=== PATIENT | female | born 1970 | race American Indian/Alaskan Native ===

== ENCOUNTER → 2018-11-17 | Outpatient (CLI) | payer OTHER ==
[~2018-11-17] MED LIST: ALBU.083IS IH; ALBU8HFA2 INH; ALBU90OI INH; ALBU90OI6 INH; ASPI325EC; ASPI81EC PO; CETI10 PO; CIPR500 PO; CITIRIZINE; CYAN1000I IM; CYCL10 PO; DICL75ER PO; FLUSAL115; FLUSAL2505 IH; GABA300 PO; HYDACE10B PO; HYDACE5 PO; HYDMOR2 PO; INSLI100I; INSULANI; INSULANI SC; IRON150C PO; KETO30I IM; LISHYD1012 PO; LISHYD2012 PO; MECL25 PO; METF500 PO; METPHE20; METR500 PO; MONT10T PO; NAPR500 PO; OMEP20ER PO; OXCA150 PO; OXYACE5T PO; PIOG45 PO; PREG25 PO; PREG50 PO; QUET200; QUET300 PO; RXCLIN PO; RXOXYACE PO; SERT100 PO; SERT50 PO; SULTRIDS PO; TOPI25 PO; TOPI50 PO; WARF1; WARFARIN
== END | disposition home or self-care (01) ==
LOC: LAB SHORT 15:53 → PLD 15:53
DX: C76.0 Malignant neoplasm of head, face and neck (principal)
CPT/HCPCS: 88173

== ENCOUNTER → 2018-12-08 | Outpatient (CLI) | payer OTHER | END | disposition home or self-care (01) | LOC: PLD 13:36 → LAB SHORT 13:36 | DX: R22.0 Localized swelling, mass and lump, head (principal); Q67.0 Congenital facial asymmetry | CPT/HCPCS: 88305 ==

== ENCOUNTER 2019-01-07 00:57 | Emergency (ER) | payer OTHER ==
[~2019-01-07] VITALS: Ht 167.6 cm; Wt 79.8 kg
== END 2019-01-07 03:54 | disposition home or self-care (01) ==
LOC: ER 00:57
DX: S00.83XA Contusion of other part of head, initial encounter (principal); F17.200 Nicotine dependence, unspecified, uncomplicated; E11.9 Type 2 diabetes mellitus without complications; Z79.899 Other long term (current) drug therapy; Z88.0 Allergy status to penicillin; X58.XXXA Exposure to other specified factors, initial encounter
CPT/HCPCS: 70450; 99283-25; A9270

== ENCOUNTER 2019-02-25 12:23 | Emergency (ER) | payer OTHER ==
[~2019-02-25] VITALS: Ht 167.6 cm; Wt 73.5 kg
[2019-02-25 12:59] LABS: BASOPHILS ABSOLUTE AUTO 0.05 K/mm3 (0.00-0.23); BASOPHILS PERCENT AUTO 1 % (0-2); EOSINOPHILS ABSOLUTE AUTO 0.08 K/mm3 (0.00-0.68); EOSINOPHILS PERCENT AUTO 1 % (0-6); Hematocrit 43.1 % (33.0-51.0); Hemoglobin 14.5 g/dL (11.5-16.0); IMMATURE GRAN ABSOLUTE AUTO 0.04 K/mm3 (0.00-0.10); IMMATURE GRAN PERCENT AUTO 0 % (0-1); LYMPHOCYTES ABSOLUTE AUTO 2.19 K/mm3 (0.84-5.20); LYMPHOCYTES PERCENT AUTO 21 % (21-46); MONOCYTES ABSOLUTE AUTO 0.56 K/mm3 (0.16-1.47); MONOCYTES PERCENT AUTO 6 % (4-13); Mean Corpuscular HGB 29.7 pg (26.0-34.0); Mean Corpuscular HGB Conc 33.6 g/dL (31.5-36.5); Mean Corpuscular Volume 88 fL (80-100); Mean Platelet Volume 9.5 fL (9.1-12.4); NEUTROPHILS ABSOLUTE AUTO 7.33 K/mm3 (1.96-9.15); NEUTROPHILS PERCENT AUTO 71 % (41-73); Platelet Count 326 K/mm3 (150-400); RDW Coefficient Variation 11.9 % (11.7-14.2); RDW Standard Deviation 38.2 fL (35.1-46.3); Red Blood Cell Count 4.88 M/mm3 (3.80-5.20); White Blood Cell Count 10.25 K/mm3 (4.00-11.30)
[2019-02-25 13:10] LABS: Alanine Aminotransfer (ALT/SGP 31 U/L (12-78); Albumin, Blood 3.2 g/dL (3.4-5.0); Albumin/Globulin Ratio 0.7 (0.8-1.8); Alk Phos 121 U/L (50-136); Anion Gap 7 mmol/L (6-16); Aspartate Aminotrans (AST/SGOT 28 U/L (12-37); Bilirubin, Total 0.5 mg/dL (0.1-1.0); Blood Urea Nitrogen 14 mg/dL (8-24); Bun/Creatinine Ratio 13.7 (12.0-20.0); CO2, Blood 21 mmol/L (21-32); Calcium, Blood 8.8 mg/dL (8.5-10.1); Chloride, Blood 108 mmol/L (98-108); Creatinine, Blood 1.02 mg/dL (0.40-1.00); Globulin, Blood 4.4 g/dL (2.2-4.0); Glomerular Filtration Rate >60 (60-); Glucose, Blood 211 mg/dL (70-99); Potassium, Blood 3.6 mmol/L (3.5-5.5); Sodium, Blood 136 mmol/L (136-145); Total Protein, Blood 7.6 g/dL (6.4-8.2); Troponin I <0.015 ng/mL (0.000-0.040)
== END 2019-02-25 16:20 | disposition home or self-care (01) ==
LOC: ER 12:23
PROVIDERS: Emergency Medicine
DX: R55 Syncope and collapse (principal); R42 Dizziness and giddiness; R22.0 Localized swelling, mass and lump, head; Z88.8 Allergy status to other drugs, medicaments and biological substances; Z88.0 Allergy status to penicillin; Z79.899 Other long term (current) drug therapy; Z79.82 Long term (current) use of aspirin; Z79.84 Long term (current) use of oral hypoglycemic drugs; Z79.891 Long term (current) use of opiate analgesic; E11.9 Type 2 diabetes mellitus without complications; J44.9 Chronic obstructive pulmonary disease, unspecified; I10 Essential (primary) hypertension; F17.200 Nicotine dependence, unspecified, uncomplicated
CPT/HCPCS: 70450; 71046; 80053; 84484; 85025; 93005; 93010; 96360; 99285-25; J7030

== ENCOUNTER 2019-10-13 00:20 | Day surgery (SDC) | payer OTHER | END 2019-10-13 22:46 | disposition home or self-care (01) | LOC: WOUND 00:20 | DX: S61.002A Unspecified open wound of left thumb without damage to nail, initial encounter (principal); S61.201A Unspecified open wound of left index finger without damage to nail, initial encounter; E11.22 Type 2 diabetes mellitus with diabetic chronic kidney disease; N18.9 Chronic kidney disease, unspecified; J45.909 Unspecified asthma, uncomplicated; E11.51 Type 2 diabetes mellitus with diabetic peripheral angiopathy without gangrene; Z88.0 Allergy status to penicillin; Z88.8 Allergy status to other drugs, medicaments and biological substances; F17.210 Nicotine dependence, cigarettes, uncomplicated; X58.XXXA Exposure to other specified factors, initial encounter; Z79.82 Long term (current) use of aspirin; Z79.899 Other long term (current) drug therapy; Z79.84 Long term (current) use of oral hypoglycemic drugs | CPT/HCPCS: G0463 ==

== ENCOUNTER 2019-11-05 23:19 | Observation (INO) | payer OTHER ==
[~2019-11-05] VITALS: Ht 167.6 cm; Wt 65.8 kg
[~2019-11-05 23:19] MED LIST changes: -ALBU90OI6 INH; -ASPI81EC PO; -GABA300 PO; -TOPI50 PO
[2019-11-06 02:54] LABS: BASOPHILS ABSOLUTE AUTO 0.07 K/mm3 (0.00-0.23); BASOPHILS PERCENT AUTO 1 % (0-2); EOSINOPHILS ABSOLUTE AUTO 0.26 K/mm3 (0.00-0.68); EOSINOPHILS PERCENT AUTO 2 % (0-6); Hematocrit 44.5 % (33.0-51.0); Hemoglobin 15.3 g/dL (11.5-16.0); IMMATURE GRAN ABSOLUTE AUTO 0.02 K/mm3 (0.00-0.10); IMMATURE GRAN PERCENT AUTO 0 % (0-1); LYMPHOCYTES ABSOLUTE AUTO 4.43 K/mm3 (0.84-5.20); LYMPHOCYTES PERCENT AUTO 40 % (21-46); MONOCYTES ABSOLUTE AUTO 0.68 K/mm3 (0.16-1.47); MONOCYTES PERCENT AUTO 6 % (4-13); Mean Corpuscular HGB 29.8 pg (26.0-34.0); Mean Corpuscular HGB Conc 34.4 g/dL (31.5-36.5); Mean Corpuscular Volume 87 fL (80-100); Mean Platelet Volume 9.5 fL (9.1-12.4); NEUTROPHILS ABSOLUTE AUTO 5.67 K/mm3 (1.96-9.15); NEUTROPHILS PERCENT AUTO 51 % (41-73); Platelet Count 331 K/mm3 (150-400); RDW Coefficient Variation 12.2 % (11.7-14.2); RDW Standard Deviation 38.9 fL (35.1-46.3); Red Blood Cell Count 5.14 M/mm3 (3.80-5.20); White Blood Cell Count 11.13 K/mm3 (4.00-11.30)
[2019-11-06 03:17] LABS: Alanine Aminotransfer (ALT/SGP 30 U/L (12-78); Albumin, Blood 3.2 g/dL (3.4-5.0); Albumin/Globulin Ratio 0.6 (0.8-1.8); Alk Phos 131 U/L (50-136); Anion Gap 7 mmol/L (6-16); Aspartate Aminotrans (AST/SGOT 20 U/L (12-37); Bilirubin, Total 0.4 mg/dL (0.1-1.0); Blood Urea Nitrogen 17 mg/dL (8-24); Bun/Creatinine Ratio 27.6 (12.0-20.0); CO2, Blood 25 mmol/L (21-32); Calcium, Blood 9.2 mg/dL (8.5-10.1); Chloride, Blood 105 mmol/L (98-108); Creatinine, Blood 0.62 mg/dL (0.40-1.00); Glomerular Filtration Rate >60 (60-); Glucose, Blood 270 mg/dL (70-99); Potassium, Blood 3.5 mmol/L (3.5-5.5); Sodium, Blood 137 mmol/L (136-145); Total Protein, Blood 8.2 g/dL (6.4-8.2)
[2019-11-06 04:15] LABS: U Amphetamine Screen DETECTED; U Barbituate Screen Not Detected; U Benzodiazapine Screen Not Detected; U Cannabinoids Screen DETECTED; U Cocaine Screen Not Detected; U Methadone Screen Not Detected; U Methamphetamine Screen Not Detected; U Opiates Screen Not Detected; U Phencyclidine Screen Not Detected
[2019-11-06 04:16] LABS: U Buprenorphine Screen Not Detected; U Oxycodone Screen Not Detected; U Propoxyphene Screen Not Detected
[2019-11-06] MEDS ORDERED: QUET300 PO (13:31)
[2019-11-06] MEDS ORDERED: TOPI50 PO (13:32)
[2019-11-06] MEDS ORDERED: SERT100 PO (13:33)
[2019-11-06] MEDS ORDERED: ALBU90OI6 INH (13:36)
[2019-11-06] MEDS ORDERED: GABA300 PO (13:36)
[2019-11-06] MEDS ORDERED: Lovastatin10 MG PO (13:37)
[2019-11-06] MEDS ORDERED: GLUCOPHAGE1000 MG PO (13:38)
[2019-11-06] MEDS ORDERED: MONT10T PO (13:39)
[2019-11-06] MEDS ORDERED: WIXELA 250-501 EAC1 INH (13:40)
[2019-11-06] MEDS ORDERED: Aspir 8181 MG PO (13:41)
== END 2019-11-07 14:27 | disposition home or self-care (01) ==
LOC: ER 23:19 → EOR 23:20
PROVIDERS: Physician Assistant; ADMIT Emergency Medicine
DX: F15.150 Other stimulant abuse with stimulant-induced psychotic disorder with delusions (principal); R06.02 Shortness of breath; R07.9 Chest pain, unspecified; E11.9 Type 2 diabetes mellitus without complications; Z88.0 Allergy status to penicillin; Z88.8 Allergy status to other drugs, medicaments and biological substances; Z87.891 Personal history of nicotine dependence; Z79.84 Long term (current) use of oral hypoglycemic drugs
CPT/HCPCS: 36415; 70450; 70487; 71045; 80053; 82375; 84484; 85025; 93005; 93010; 99285-25; A9270-GY; G0378; Q3014; Q9967

== ENCOUNTER 2019-11-19 01:37 | Day surgery (SDC) | payer OTHER ==
[~2019-11-19 01:37] MED LIST changes: +ALBU90OI6 INH; +Aspir 8181 MG PO; +GABA300 PO; +GLUCOPHAGE1000 MG PO; +Lovastatin10 MG PO; +TOPI50 PO; +WIXELA 250-501 EAC1 INH
== END 2019-11-19 22:44 | disposition home or self-care (01) ==
LOC: WOUND 01:37
DX: E11.622 Type 2 diabetes mellitus with other skin ulcer (principal); L98.492 Non-pressure chronic ulcer of skin of other sites with fat layer exposed; E11.51 Type 2 diabetes mellitus with diabetic peripheral angiopathy without gangrene; E11.22 Type 2 diabetes mellitus with diabetic chronic kidney disease; N18.9 Chronic kidney disease, unspecified; J45.909 Unspecified asthma, uncomplicated; Z88.8 Allergy status to other drugs, medicaments and biological substances; F17.210 Nicotine dependence, cigarettes, uncomplicated; Z79.82 Long term (current) use of aspirin; Z79.84 Long term (current) use of oral hypoglycemic drugs; Z79.899 Other long term (current) drug therapy
CPT/HCPCS: G0463

== ENCOUNTER 2020-03-04 05:07 | Emergency (ER) | payer OTHER ==
[~2020-03-04] VITALS: Ht 167.6 cm; Wt 63.0 kg
[2020-03-04 05:45] LABS: BASOPHILS ABSOLUTE AUTO 0.04 K/mm3 (0.00-0.23); BASOPHILS PERCENT AUTO 1 % (0-2); EOSINOPHILS ABSOLUTE AUTO 0.15 K/mm3 (0.00-0.68); EOSINOPHILS PERCENT AUTO 2 % (0-6); Hematocrit 43.1 % (33.0-51.0); Hemoglobin 14.6 g/dL (11.5-16.0); IMMATURE GRAN ABSOLUTE AUTO 0.02 K/mm3 (0.00-0.10); IMMATURE GRAN PERCENT AUTO 0 % (0-1); LYMPHOCYTES ABSOLUTE AUTO 3.25 K/mm3 (0.84-5.20); LYMPHOCYTES PERCENT AUTO 44 % (21-46); MONOCYTES ABSOLUTE AUTO 0.53 K/mm3 (0.16-1.47); MONOCYTES PERCENT AUTO 7 % (4-13); Mean Corpuscular HGB Conc 33.9 g/dL (31.5-36.5); Mean Corpuscular Volume 89 fL (80-100); NEUTROPHILS ABSOLUTE AUTO 3.41 K/mm3 (1.96-9.15); NEUTROPHILS PERCENT AUTO 46 % (41-73); Platelet Count 273 K/mm3 (150-400); RDW Coefficient Variation 11.9 % (11.7-14.2); RDW Standard Deviation 38.5 fL (35.1-46.3); Red Blood Cell Count 4.87 M/mm3 (3.80-5.20)
[2020-03-04 06:05] LABS: Alanine Aminotransfer (ALT/SGP 46 U/L (12-78); Albumin, Blood 3.4 g/dL (3.4-5.0); Albumin/Globulin Ratio 0.7 (0.8-1.8); Alk Phos 106 U/L (50-136); Anion Gap 6 mmol/L (6-16); Aspartate Aminotrans (AST/SGOT 31 U/L (12-37); Bilirubin, Total 0.4 mg/dL (0.1-1.0); Blood Urea Nitrogen 29 mg/dL (8-24); Bun/Creatinine Ratio 31.1 (12.0-20.0); CO2, Blood 24 mmol/L (21-32); Chloride, Blood 107 mmol/L (98-108); Creatinine, Blood 0.93 mg/dL (0.40-1.00); Globulin, Blood 4.6 g/dL (2.2-4.0); Glomerular Filtration Rate >60 (60-); Glucose, Blood 183 mg/dL (70-99); Potassium, Blood 3.6 mmol/L (3.5-5.5); Sodium, Blood 137 mmol/L (136-145); Troponin I <0.015 ng/mL (0.000-0.040)
[2020-03-04 08:14] LABS: U Amphetamine Screen Not Detected; U Barbituate Screen Not Detected; U Benzodiazapine Screen Not Detected; U Buprenorphine Screen Not Detected; U Cannabinoids Screen DETECTED; U Cocaine Screen Not Detected; U Methadone Screen Not Detected; U Methamphetamine Screen Not Detected; U Opiates Screen Not Detected; U Oxycodone Screen Not Detected; U Phencyclidine Screen Not Detected; U Propoxyphene Screen Not Detected
== END 2020-03-04 09:11 | disposition home or self-care (01) ==
LOC: ER 05:07
PROVIDERS: Emergency Medicine
DX: R07.89 Other chest pain (principal); R10.9 Unspecified abdominal pain; R42 Dizziness and giddiness; R25.2 Cramp and spasm; Z79.899 Other long term (current) drug therapy; Z79.82 Long term (current) use of aspirin; Z79.84 Long term (current) use of oral hypoglycemic drugs; Z88.8 Allergy status to other drugs, medicaments and biological substances; Z88.1 Allergy status to other antibiotic agents; Z88.0 Allergy status to penicillin
CPT/HCPCS: 36415; 71045; 80053; 83690; 83880; 84484; 85025; 93005; 93010; 99285-25

== ENCOUNTER 2020-03-12 08:41 | Emergency (ER) | payer OTHER ==
[~2020-03-12] VITALS: Ht 167.6 cm; Wt 62.6 kg
[2020-03-12 11:12] LABS: BASOPHILS ABSOLUTE AUTO 0.03 K/mm3 (0.00-0.23); BASOPHILS PERCENT AUTO 0 % (0-2); EOSINOPHILS PERCENT AUTO 0 % (0-6); Hematocrit 38.3 % (33.0-51.0); Hemoglobin 13.3 g/dL (11.5-16.0); IMMATURE GRAN ABSOLUTE AUTO 0.05 K/mm3 (0.00-0.10); IMMATURE GRAN PERCENT AUTO 0 % (0-1); LYMPHOCYTES ABSOLUTE AUTO 1.57 K/mm3 (0.84-5.20); LYMPHOCYTES PERCENT AUTO 14 % (21-46); MONOCYTES ABSOLUTE AUTO 0.67 K/mm3 (0.16-1.47); MONOCYTES PERCENT AUTO 6 % (4-13); Mean Corpuscular HGB 29.7 pg (26.0-34.0); Mean Corpuscular HGB Conc 34.7 g/dL (31.5-36.5); Mean Corpuscular Volume 86 fL (80-100); Mean Platelet Volume 9.5 fL (9.1-12.4); NEUTROPHILS ABSOLUTE AUTO 8.82 K/mm3 (1.96-9.15); NEUTROPHILS PERCENT AUTO 79 % (41-73); Platelet Count 322 K/mm3 (150-400); RDW Coefficient Variation 11.6 % (11.7-14.2); RDW Standard Deviation 36.2 fL (35.1-46.3); Red Blood Cell Count 4.48 M/mm3 (3.80-5.20); White Blood Cell Count 11.14 K/mm3 (4.00-11.30)
[2020-03-12 11:30] LABS: Alanine Aminotransfer (ALT/SGP 25 U/L (12-78); Albumin, Blood 3.1 g/dL (3.4-5.0); Albumin/Globulin Ratio 0.6 (0.8-1.8); Alk Phos 108 U/L (50-136); Anion Gap 9 mmol/L (6-16); Aspartate Aminotrans (AST/SGOT 15 U/L (12-37); Bilirubin, Total 0.4 mg/dL (0.1-1.0); Blood Urea Nitrogen 18 mg/dL (8-24); Bun/Creatinine Ratio 26.5 (12.0-20.0); CO2, Blood 22 mmol/L (21-32); Calcium, Blood 9.1 mg/dL (8.5-10.1); Chloride, Blood 109 mmol/L (98-108); Creatinine, Blood 0.68 mg/dL (0.40-1.00); Glomerular Filtration Rate >60 (60-); Glucose, Blood 278 mg/dL (70-99); Potassium, Blood 3.6 mmol/L (3.5-5.5); Sodium, Blood 140 mmol/L (136-145); Total Protein, Blood 8.1 g/dL (6.4-8.2)
[2020-03-12] MEDS ORDERED: BACTRIM DS TAB1 EAC3 PO (12:53)
== END 2020-03-12 14:00 | disposition home or self-care (01) ==
LOC: ER 08:41
PROVIDERS: Emergency Medicine
DX: S61.255A Open bite of left ring finger without damage to nail, initial encounter (principal); L08.9 Local infection of the skin and subcutaneous tissue, unspecified; E11.9 Type 2 diabetes mellitus without complications; I10 Essential (primary) hypertension; F17.210 Nicotine dependence, cigarettes, uncomplicated; Z88.0 Allergy status to penicillin; Z88.1 Allergy status to other antibiotic agents; Z79.899 Other long term (current) drug therapy; Z79.84 Long term (current) use of oral hypoglycemic drugs; Z79.82 Long term (current) use of aspirin; W54.0XXA Bitten by dog, initial encounter
CPT/HCPCS: 36415; 73130; 76882; 80053; 85025; 99284-25

== ENCOUNTER 2020-03-16 14:02 | Inpatient (IN) | payer OTHER ==
[~2020-03-16] VITALS: Ht 167.6 cm; Wt 62.2 kg
[~2020-03-16 14:02] MED LIST changes: +BACTRIM DS TAB1 EAC3 PO
[2020-03-16 14:43] LABS: BASOPHILS ABSOLUTE AUTO 0.04 K/mm3 (0.00-0.23); BASOPHILS PERCENT AUTO 0 % (0-2); EOSINOPHILS ABSOLUTE AUTO 0.12 K/mm3 (0.00-0.68); EOSINOPHILS PERCENT AUTO 1 % (0-6); Hematocrit 41.2 % (33.0-51.0); Hemoglobin 13.8 g/dL (11.5-16.0); IMMATURE GRAN ABSOLUTE AUTO 0.03 K/mm3 (0.00-0.10); IMMATURE GRAN PERCENT AUTO 0 % (0-1); LYMPHOCYTES ABSOLUTE AUTO 2.43 K/mm3 (0.84-5.20); LYMPHOCYTES PERCENT AUTO 24 % (21-46); MONOCYTES ABSOLUTE AUTO 0.65 K/mm3 (0.16-1.47); MONOCYTES PERCENT AUTO 6 % (4-13); Mean Corpuscular HGB Conc 33.5 g/dL (31.5-36.5); Mean Corpuscular Volume 87 fL (80-100); Mean Platelet Volume 9.2 fL (9.1-12.4); NEUTROPHILS ABSOLUTE AUTO 6.84 K/mm3 (1.96-9.15); NEUTROPHILS PERCENT AUTO 68 % (41-73); Platelet Count 397 K/mm3 (150-400); RDW Coefficient Variation 11.7 % (11.7-14.2); RDW Standard Deviation 37.4 fL (35.1-46.3); Red Blood Cell Count 4.76 M/mm3 (3.80-5.20); White Blood Cell Count 10.11 K/mm3 (4.00-11.30)
[2020-03-16 15:04] LABS: Alanine Aminotransfer (ALT/SGP 22 U/L (12-78); Albumin, Blood 2.8 g/dL (3.4-5.0); Albumin/Globulin Ratio 0.6 (0.8-1.8); Alk Phos 112 U/L (50-136); Anion Gap 7 mmol/L (6-16); Aspartate Aminotrans (AST/SGOT 14 U/L (12-37); Bilirubin, Total 0.3 mg/dL (0.1-1.0); Blood Urea Nitrogen 14 mg/dL (8-24); Bun/Creatinine Ratio 20.2 (12.0-20.0); CO2, Blood 24 mmol/L (21-32); Calcium, Blood 8.8 mg/dL (8.5-10.1); Chloride, Blood 103 mmol/L (98-108); Creatinine, Blood 0.69 mg/dL (0.40-1.00); Glomerular Filtration Rate >60 (60-); Glucose, Blood 349 mg/dL (70-99); Sodium, Blood 134 mmol/L (136-145); Total Protein, Blood 7.8 g/dL (6.4-8.2)
[2020-03-16] MEDS ORDERED: ZYRTEC10 M2 PO (17:27)
[2020-03-17 04:51] LABS: Hematocrit 39.6 % (33.0-51.0); Hemoglobin 13.1 g/dL (11.5-16.0); Mean Corpuscular HGB 28.9 pg (26.0-34.0); Mean Corpuscular HGB Conc 33.1 g/dL (31.5-36.5); Mean Corpuscular Volume 87 fL (80-100); Platelet Count 314 K/mm3 (150-400); RDW Coefficient Variation 11.7 % (11.7-14.2); RDW Standard Deviation 37.5 fL (35.1-46.3); Red Blood Cell Count 4.54 M/mm3 (3.80-5.20); White Blood Cell Count 8.14 K/mm3 (4.00-11.30)
[2020-03-17 05:16] LABS: Anion Gap 5 mmol/L (6-16); Blood Urea Nitrogen 20 mg/dL (8-24); Bun/Creatinine Ratio 24.1 (12.0-20.0); CO2, Blood 27 mmol/L (21-32); Chloride, Blood 101 mmol/L (98-108); Creatinine, Blood 0.83 mg/dL (0.40-1.00); Glomerular Filtration Rate >60 (60-); Glucose, Blood 182 mg/dL (70-99); Potassium, Blood 4.3 mmol/L (3.5-5.5); Sodium, Blood 133 mmol/L (136-145)
--- NOTE | 2020-03-17 05:40 | NUR ---
SHIFT SUMMARY PT ARRIVIED TO UNIT FROM ED VIA WHEELCHAIR. TRANSFERRED FROM WC TO BED IND. A&O X4. ATE DINNER ONCE SETTLED. PT BECAME NPO @ 0000. NO ACUTE CHANGES THIS SHIFT. SLEPT T/O NIGHT WITH NO COMPLAINTS OF ANY KIND. PT IS LAYING IN BED WITH EYES CLOSED, EVEN AND UNLABORED RESPIRATIONS. BED IN LOWERED POSITION WITH CALL LIGHT AND PERSONAL ITEMS WITHIN REACH. NO APPARENT NEEDS OR DISTRESS AT THIS TIME. WILL CONTINUE TO MONITOR UNTIL REPORT GIVEN TO DAY RN.
--- NOTE | 2020-03-17 18:02 | NUR ---
PATIENT IS ALERT AND ORIENTED AND COOPERATIVE WITH CARE. DR. CHESTER PERFORMED SURGERY ON THE PATIENT TODAY, AMPUTATING HER RIGHT RING FINGER. THE PATIENTS HAND IS WRAPPED IN GAUZE AND KUN WRAP. DURING THE PROCEDURE, THE PATIENT'S IV INFILTRATED CAUSING HER ARM TO SWELL, THERE ARE ORDERS FOR THE PATIENT TO ELEVATE HER RIGHT ARM ABOVE THE LEVEL OF HER HEART, HER UPPER ARM IS WRAPPED IN AN KUN WRAP FOR COMPRESSION. THE PATIENT'S POST-OP VITALS HAVE BEEN WNL. THE PATIENT IS ALERT AND ORIENTED X4. SHE JUST FINISHED DINNER. WILL CONTINUE TO MONITOR.
[2020-03-18 04:16] LABS: BASOPHILS ABSOLUTE AUTO 0.04 K/mm3 (0.00-0.23); BASOPHILS PERCENT AUTO 1 % (0-2); EOSINOPHILS ABSOLUTE AUTO 0.15 K/mm3 (0.00-0.68); EOSINOPHILS PERCENT AUTO 2 % (0-6); Hematocrit 35.7 % (33.0-51.0); IMMATURE GRAN ABSOLUTE AUTO 0.05 K/mm3 (0.00-0.10); IMMATURE GRAN PERCENT AUTO 1 % (0-1); LYMPHOCYTES ABSOLUTE AUTO 1.81 K/mm3 (0.84-5.20); LYMPHOCYTES PERCENT AUTO 22 % (21-46); MONOCYTES ABSOLUTE AUTO 0.78 K/mm3 (0.16-1.47); MONOCYTES PERCENT AUTO 9 % (4-13); Mean Corpuscular HGB 29.6 pg (26.0-34.0); Mean Corpuscular HGB Conc 33.6 g/dL (31.5-36.5); Mean Corpuscular Volume 88 fL (80-100); NEUTROPHILS ABSOLUTE AUTO 5.47 K/mm3 (1.96-9.15); NEUTROPHILS PERCENT AUTO 66 % (41-73); Platelet Count 296 K/mm3 (150-400); RDW Coefficient Variation 11.7 % (11.7-14.2); RDW Standard Deviation 37.9 fL (35.1-46.3); Red Blood Cell Count 4.05 M/mm3 (3.80-5.20)
[2020-03-18 04:30] LABS: Anion Gap 6 mmol/L (6-16); Blood Urea Nitrogen 32 mg/dL (8-24); Bun/Creatinine Ratio 32.5 (12.0-20.0); CO2, Blood 27 mmol/L (21-32); Calcium, Blood 8.4 mg/dL (8.5-10.1); Chloride, Blood 96 mmol/L (98-108); Creatinine, Blood 0.98 mg/dL (0.40-1.00); Glomerular Filtration Rate >60 (60-); Glucose, Blood 199 mg/dL (70-99); Potassium, Blood 4.9 mmol/L (3.5-5.5); Sodium, Blood 129 mmol/L (136-145)
--- NOTE | 2020-03-18 04:32 | NUR ---
MARKETING SENIOR RECRUITER SUMMARY ALERT AND ORIENTED. APPEARED TO SLEEP MOST OF THE SHIFT. S/P R. RING FINGER AMPUTATION, DRESSING IS C/D/I. VSS. NO ACUTE CHANGES NOTED AT THIS TIME. BED IN LOWEST POSITION WITH CALL LIGHT IN REACH. WILL CONTINUE TO MONITOR AND REPORT TO ONCOMING RN.
--- NOTE | 2020-03-18 08:00 | NUR ---
ADVISED OF SODIUM 129 AND PATIENT REQUEST MORE PAIN MEDS. GIVEN TYLENOL. TO CHECK.
--- NOTE | 2020-03-18 18:11 | NUR ---
ALERT. ORIENTED. MEDICATED FOR PAIN X 3 WITH MODERATE RELIEF. DRESSING DRY AND INTACT. UNLABORED RESPIRATIONS. INDEPENDENT IN ROOM, STEADY GAIT. IV PATENT. TM
--- NOTE | 2020-03-19 04:15 | NUR ---
PATCH MACHINE OPERATOR SUMMARY ALERT AND ORIENTED. IND TO BATHROOM. APPEARED TO SLEEP T/O SHIFT. S/P R. RING FINGER AMPUTATION. DRESSING C/D/I. BREATHING IS UNLABORED. NO ACUTE CHANGES AT THIS TIME. BED IN LOWEST POSITON WITH CALL LIGHT IN REACH. WILL CONTINUE TO MONITOR AND REPORT TO ONCOMING RN.
[2020-03-19 10:36] LABS: Anion Gap 7 mmol/L (6-16); Blood Urea Nitrogen 20 mg/dL (8-24); Bun/Creatinine Ratio 27.9 (12.0-20.0); CO2, Blood 27 mmol/L (21-32); Calcium, Blood 8.9 mg/dL (8.5-10.1); Chloride, Blood 97 mmol/L (98-108); Creatinine, Blood 0.72 mg/dL (0.40-1.00); Glomerular Filtration Rate >60 (60-); Glucose, Blood 319 mg/dL (70-99); Potassium, Blood 4.6 mmol/L (3.5-5.5); Sodium, Blood 131 mmol/L (136-145)
--- NOTE | 2020-03-19 18:23 | NUR ---
report recived from noc nurse, pt doing well with pain controlled with medication, independant in rm, a+o, no IV access in L arm r/blood clots, able to use call light, awaiting lab results of culture, pt was coopreative, much improved finger and pain control over previous days, great attitude, will continue to monitor and treat until share sbar report with staff and pt at end of shift
--- NOTE | 2020-03-20 04:40 | NUR ---
PRODUCT MANAGER FINANCIAL SERVICES SUMMARY NO ACUTE CHANGES NOTED TO PATIENT THIS SHIFT. A&OX4, ABLE TO MAKE NEEDS KNOWN. LSCTA, NO C/O SOB, N&V, NO C/O PAIN OR ANY OTHER DISCOMFORT. PATIENT PLEASANT AND COOPERATIVE TO CARE. WOUND DRESSING TO AMPUTATED AREA R RING FINGER CDI. AWAITING LAB RESULTS OF CULTURE. PT INDEPENDENT IN ROOM, CALL LIGHT WITHIN REACH. WILL CONTINUE TO MONITOR PATIENT. WILL REPORT TO ONCOMING RN AT END OF SHIFT.
[2020-03-20] MEDS ORDERED: SACC250C PO (11:15)
[2020-03-20] MEDS ORDERED: Norco 5-325 Ta1 EACH PO (11:15)
[2020-03-20] MEDS ORDERED: CLIN300 PO (11:16)
--- NOTE | 2020-03-20 13:38 | NUR ---
Discharge Summary A/Ox4, pleasant and cooperative with care. Patient had wound care completed per Dr. Westbrook's verbal order and a shower prior to discharge. Medicated x 1 for pain with good relief. Up in room independently. Reviewed discharge paperwork with patient, no questions at this time. Meds faxed to preferred pharmacy - [facility] - and hard script provided to patient. Escorted by Discharge Volunteer via w/c. Personal belongings sent home. IV removed, personal transportation by family. Wound care appointment and follow up appts with PCP and Ortho set up, patient aware.
== END 2020-03-20 13:04 | disposition home or self-care (01) | DRG 256 ==
LOC: ER 14:02 → MEDS 14:03 → ENPENDDIS 03-20 10:22 → MEDS 03-20 13:04
PROVIDERS: Hospitalist; Orthopaedic Surgery; Physician Assistant; ADMIT Internal Medicine
PROC: 3E02340 Introduction of Influenza Vaccine into Muscle, Percutaneous Approach (ICD-10-PCS; 2020-03-16)
PROC: 0X6S0Z0 Detachment at Right Ring Finger, Complete, Open Approach (ICD-10-PCS; principal; 2020-03-17 13:00)
DX: E11.52 Type 2 diabetes mellitus with diabetic peripheral angiopathy with gangrene (principal); I96 Gangrene, not elsewhere classified; I73.01 Raynaud's syndrome with gangrene; E87.1 Hypo-osmolality and hyponatremia; Z20.828 Contact with and (suspected) exposure to other viral communicable diseases; E11.65 Type 2 diabetes mellitus with hyperglycemia; I10 Essential (primary) hypertension; I25.10 Atherosclerotic heart disease of native coronary artery without angina pectoris; F15.10 Other stimulant abuse, uncomplicated; F17.210 Nicotine dependence, cigarettes, uncomplicated; F12.10 Cannabis abuse, uncomplicated; Z86.718 Personal history of other venous thrombosis and embolism; Z86.711 Personal history of pulmonary embolism; Z79.899 Other long term (current) drug therapy; Z79.84 Long term (current) use of oral hypoglycemic drugs; Z79.82 Long term (current) use of aspirin; Z23 Encounter for immunization; Z88.0 Allergy status to penicillin; Z88.1 Allergy status to other antibiotic agents; Z88.8 Allergy status to other drugs, medicaments and biological substances; W54.0XXS Bitten by dog, sequela
CPT/HCPCS: 36415; 73140; 80048; 80053; 82947; 83605; 85025; 85027; 85651; 86140; 87040; 87070; 87075; 87205; 88305; 88311; 94640; 94760; 96365-59; 96366-59; 99284-25; A9270; A9270-GY; G0008; J1650; J1885; J1956; J2250; J2370; J2405; J2704; J2795; J3010; J7050; Q2038; U0003

== ENCOUNTER 2020-03-27 13:29 | Day surgery (SDC) | payer OTHER ==
[~2020-03-27 13:29] MED LIST changes: +CLIN300 PO; +Norco 5-325 Ta1 EACH PO; +SACC250C PO; +ZYRTEC10 M2 PO
== END 2020-03-27 15:00 | disposition home or self-care (01) ==
LOC: WOUND 13:29
DX: T87.89 Other complications of amputation stump (principal); E11.622 Type 2 diabetes mellitus with other skin ulcer; L98.491 Non-pressure chronic ulcer of skin of other sites limited to breakdown of skin; I12.9 Hypertensive chronic kidney disease with stage 1 through stage 4 chronic kidney disease, or unspecified chronic kidney disease; E11.22 Type 2 diabetes mellitus with diabetic chronic kidney disease; N18.9 Chronic kidney disease, unspecified; F31.9 Bipolar disorder, unspecified; F17.210 Nicotine dependence, cigarettes, uncomplicated; J32.9 Chronic sinusitis, unspecified; H74.90 Unspecified disorder of middle ear and mastoid, unspecified ear; D64.9 Anemia, unspecified; G47.30 Sleep apnea, unspecified; J44.9 Chronic obstructive pulmonary disease, unspecified; E11.40 Type 2 diabetes mellitus with diabetic neuropathy, unspecified; E11.36 Type 2 diabetes mellitus with diabetic cataract; E11.51 Type 2 diabetes mellitus with diabetic peripheral angiopathy without gangrene; H26.9 Unspecified cataract; Z88.0 Allergy status to penicillin; Z88.1 Allergy status to other antibiotic agents; Z88.8 Allergy status to other drugs, medicaments and biological substances; Z91.048 Other nonmedicinal substance allergy status; Z79.82 Long term (current) use of aspirin; Z79.84 Long term (current) use of oral hypoglycemic drugs; Z79.51 Long term (current) use of inhaled steroids; Z79.2 Long term (current) use of antibiotics; Z79.899 Other long term (current) drug therapy; I73.00 Raynaud's syndrome without gangrene; Y83.5 Amputation of limb(s) as the cause of abnormal reaction of the patient, or of later complication, without mention of misadventure at the time of the procedure
CPT/HCPCS: G0463

== ENCOUNTER 2020-09-18 22:01 | Emergency (ER) | payer OTHER ==
[~2020-09-18] VITALS: Ht 167.6 cm; Wt 65.3 kg
[2020-09-18 22:34] LABS: BASOPHILS ABSOLUTE AUTO 0.04 K/mm3 (0.00-0.23); BASOPHILS PERCENT AUTO 0 % (0-2); EOSINOPHILS ABSOLUTE AUTO 0.08 K/mm3 (0.00-0.68); EOSINOPHILS PERCENT AUTO 1 % (0-6); Hematocrit 37.4 % (33.0-51.0); Hemoglobin 12.9 g/dL (11.5-16.0); IMMATURE GRAN ABSOLUTE AUTO 0.05 K/mm3 (0.00-0.10); IMMATURE GRAN PERCENT AUTO 0 % (0-1); LYMPHOCYTES ABSOLUTE AUTO 2.17 K/mm3 (0.84-5.20); LYMPHOCYTES PERCENT AUTO 17 % (21-46); MONOCYTES ABSOLUTE AUTO 1.09 K/mm3 (0.16-1.47); MONOCYTES PERCENT AUTO 9 % (4-13); Mean Corpuscular HGB 30.1 pg (26.0-34.0); Mean Corpuscular HGB Conc 34.5 g/dL (31.5-36.5); Mean Corpuscular Volume 87 fL (80-100); Mean Platelet Volume 9.8 fL (9.1-12.4); NEUTROPHILS ABSOLUTE AUTO 9.05 K/mm3 (1.96-9.15); NEUTROPHILS PERCENT AUTO 73 % (41-73); Platelet Count 260 K/mm3 (150-400); RDW Coefficient Variation 12.4 % (11.7-14.2); RDW Standard Deviation 39.5 fL (35.1-46.3); Red Blood Cell Count 4.29 M/mm3 (3.80-5.20); White Blood Cell Count 12.48 K/mm3 (4.00-11.30)
[2020-09-18 22:54] LABS: Alanine Aminotransfer (ALT/SGP 30 U/L (12-78); Albumin, Blood 2.7 g/dL (3.4-5.0); Albumin/Globulin Ratio 0.6 (0.8-1.8); Alk Phos 95 U/L (50-136); Anion Gap 6 mmol/L (6-16); Aspartate Aminotrans (AST/SGOT 29 U/L (12-37); Bilirubin, Total 0.5 mg/dL (0.1-1.0); Blood Urea Nitrogen 21 mg/dL (8-24); Bun/Creatinine Ratio 36.8 (12.0-20.0); CO2, Blood 25 mmol/L (21-32); Chloride, Blood 107 mmol/L (98-108); Creatinine, Blood 0.57 mg/dL (0.40-1.00); Globulin, Blood 4.5 g/dL (2.2-4.0); Glomerular Filtration Rate >60 (60-); Glucose, Blood 202 mg/dL (70-99); Potassium, Blood 3.4 mmol/L (3.5-5.5); Sodium, Blood 138 mmol/L (136-145); Total Protein, Blood 7.2 g/dL (6.4-8.2)
[2020-09-19 00:53] LABS: Prothrombin Time Results 10.8 Sec (9.7-11.5)
[2020-09-19 01:41] LABS: Influenza A, PCR NEGATIVE (NEGATIVE); Influenza B, PCR NEGATIVE (NEGATIVE); Resp Syncytial Virus, PCR NEGATIVE (NEGATIVE); SARS-Cov-2 (COVID-19) PCR, MMC NEGATIVE (NEGATIVE)
== END 2020-09-19 03:27 | disposition short-term general hospital (02) ==
LOC: ER 22:01
PROVIDERS: Emergency Medicine
DX: I70.0 Atherosclerosis of aorta (principal); E11.9 Type 2 diabetes mellitus without complications; I10 Essential (primary) hypertension; F17.210 Nicotine dependence, cigarettes, uncomplicated
CPT/HCPCS: 0241U; 71275; 73620; 74175; 75635; 80053; 85025; 85610; 85730; 93005; 93010; 96361; 96365; 96375; 96376; 99285-25; J0744; J1170; J1644; J7030; Q9967

== ENCOUNTER 2021-08-27 09:59 | Day surgery (SDC) | payer OTHER ==
[~2021-08-27] VITALS: Ht 167.6 cm; Wt 30.5 kg
[2021-08-27] MEDS ORDERED: GABA100 PO (10:42)
[2021-08-27] MEDS ORDERED: HALO2 PO (10:43)
[2021-08-27] MEDS ORDERED: HALO5 PO (10:43)
[2021-08-27] MEDS ORDERED: MONT10T (10:45)
[2021-08-27] MEDS ORDERED: CLOP75 PO (10:46)
[2021-08-27] MEDS ORDERED: CYCLOBENZAPRINE5 MG PO (10:47)
[2021-08-27] MEDS ORDERED: ATOR80 (10:48)
[2021-08-27] MEDS ORDERED: SERT50 (10:49)
--- NOTE | 2021-08-27 12:42 | NUR ---
08/27/21 1242 Rony Nunn PT REPORTS NO NAUSEA AND PAIN LEVEL IN HER RIGHT FOOT IS A 1/10 WHICH IS "TOLERABLE" FOR HER. PT REPORTS HAVING PAIN IN HER LOWER BACK. BUS AND RAIL OPERATOR REPORTED THAT PT HAS A BED SORE ON HER LOWER BACK THAT IS CURENTLY COVERED.
== END 2021-08-27 13:03 | disposition home or self-care (01) ==
LOC: ORSCSDS 09:59
PROVIDERS: Podiatrist Foot & Ankle Surgery
PROC: 0Y6V0Z1 Detachment at Right 4th Toe, High, Open Approach (ICD-10-PCS; principal; 2021-08-27 11:30)
DX: I96 Gangrene, not elsewhere classified (principal); M86.9 Osteomyelitis, unspecified; L03.031 Cellulitis of right toe; E08.42 Diabetes mellitus due to underlying condition with diabetic polyneuropathy; I10 Essential (primary) hypertension; J44.9 Chronic obstructive pulmonary disease, unspecified; F17.210 Nicotine dependence, cigarettes, uncomplicated; Z79.84 Long term (current) use of oral hypoglycemic drugs; F31.9 Bipolar disorder, unspecified; I25.10 Atherosclerotic heart disease of native coronary artery without angina pectoris; Z79.4 Long term (current) use of insulin; Z79.899 Other long term (current) drug therapy; Z79.82 Long term (current) use of aspirin
CPT/HCPCS: 82947; 88305; 88311; J0171; J1100; J2250; J2405; J2704; J3010

== ENCOUNTER 2021-09-14 03:00 | Day surgery (SDC) | payer OTHER ==
[~2021-09-14 03:00] MED LIST changes: +ATOR80; +CLOP75 PO; +CYCLOBENZAPRINE5 MG PO; +GABA100 PO; +HALO2 PO; +HALO5 PO; +MONT10T; +SERT50
== END 2021-09-14 23:23 | disposition home or self-care (01) ==
LOC: WOUND 03:00
DX: L89.153 Pressure ulcer of sacral region, stage 3 (principal); E11.59 Type 2 diabetes mellitus with other circulatory complications; E11.51 Type 2 diabetes mellitus with diabetic peripheral angiopathy without gangrene; E11.22 Type 2 diabetes mellitus with diabetic chronic kidney disease; I12.0 Hypertensive chronic kidney disease with stage 5 chronic kidney disease or end stage renal disease; N18.6 End stage renal disease; J44.9 Chronic obstructive pulmonary disease, unspecified; F17.200 Nicotine dependence, unspecified, uncomplicated; Z88.1 Allergy status to other antibiotic agents; Z88.0 Allergy status to penicillin; Z88.8 Allergy status to other drugs, medicaments and biological substances; Z91.048 Other nonmedicinal substance allergy status
CPT/HCPCS: A9270; G0463

== ENCOUNTER 2021-09-28 01:14 | Day surgery (SDC) | payer OTHER | END 2021-09-28 22:51 | disposition home or self-care (01) | LOC: WOUND 01:14 | DX: L89.153 Pressure ulcer of sacral region, stage 3 (principal); E11.59 Type 2 diabetes mellitus with other circulatory complications; E11.51 Type 2 diabetes mellitus with diabetic peripheral angiopathy without gangrene | CPT/HCPCS: A9270; G0463 ==

== ENCOUNTER 2021-10-12 01:59 | Day surgery (SDC) | payer OTHER | END 2021-10-12 23:14 | disposition home or self-care (01) | LOC: WOUND 01:59 | DX: L89.153 Pressure ulcer of sacral region, stage 3 (principal); E11.59 Type 2 diabetes mellitus with other circulatory complications; N18.9 Chronic kidney disease, unspecified; E11.22 Type 2 diabetes mellitus with diabetic chronic kidney disease; F17.200 Nicotine dependence, unspecified, uncomplicated | CPT/HCPCS: G0463 ==

== ENCOUNTER 2021-10-26 05:26 | Day surgery (SDC) | payer OTHER | END 2021-10-26 23:07 | disposition home or self-care (01) | LOC: WOUND 05:26 | DX: L89.153 Pressure ulcer of sacral region, stage 3 (principal); E11.59 Type 2 diabetes mellitus with other circulatory complications | CPT/HCPCS: 99406; A9270; G0463 ==

== ENCOUNTER 2021-11-16 01:35 | Day surgery (SDC) | payer OTHER | END 2021-11-16 23:39 | disposition home or self-care (01) | LOC: WOUND 01:35 | DX: L89.153 Pressure ulcer of sacral region, stage 3 (principal); N18.9 Chronic kidney disease, unspecified; E11.22 Type 2 diabetes mellitus with diabetic chronic kidney disease; F17.200 Nicotine dependence, unspecified, uncomplicated | CPT/HCPCS: 99406; A9270; G0463 ==

== ENCOUNTER 2021-12-04 01:30 | Day surgery (SDC) | payer OTHER | END 2021-12-04 05:38 | disposition home or self-care (01) | LOC: WOUND 01:30 | DX: L89.153 Pressure ulcer of sacral region, stage 3 (principal); E59 Dietary selenium deficiency | CPT/HCPCS: 99406; A9270; G0463 ==

== ENCOUNTER → 2021-12-18 | Day surgery (SDC) | payer OTHER | LOC: WOUND 03:30 | DX: L89.153 Pressure ulcer of sacral region, stage 3 (principal); E11.59 Type 2 diabetes mellitus with other circulatory complications; Z72.0 Tobacco use | CPT/HCPCS: 99406; A9270; G0463 ==

== ENCOUNTER 2022-01-01 01:11 | Day surgery (SDC) | payer OTHER | END 2022-01-02 00:09 | disposition home or self-care (01) | LOC: WOUND 01:11 | DX: L89.153 Pressure ulcer of sacral region, stage 3 (principal); E11.59 Type 2 diabetes mellitus with other circulatory complications; Z72.0 Tobacco use | CPT/HCPCS: 99406; A9270; G0463 ==

== ENCOUNTER 2022-01-22 04:14 | Day surgery (SDC) | payer OTHER | END 2022-01-22 23:27 | disposition home or self-care (01) | LOC: WOUND 04:14 | DX: L89.153 Pressure ulcer of sacral region, stage 3 (principal); E11.59 Type 2 diabetes mellitus with other circulatory complications; Z72.0 Tobacco use ==

== ENCOUNTER 2022-01-28 17:45 | Emergency (ER) | payer OTHER ==
[~2022-01-28] VITALS: Ht 167.6 cm; Wt 79.4 kg
[2022-01-28 19:22] LABS: BASOPHILS ABSOLUTE AUTO 0.05 K/mm3 (0.00-0.23); BASOPHILS PERCENT AUTO 1 % (0-2); EOSINOPHILS ABSOLUTE AUTO 0.36 K/mm3 (0.00-0.68); EOSINOPHILS PERCENT AUTO 4 % (0-6); Hematocrit 39.2 % (33.0-51.0); IMMATURE GRAN ABSOLUTE AUTO 0.03 K/mm3 (0.00-0.10); IMMATURE GRAN PERCENT AUTO 0 % (0-1); LYMPHOCYTES ABSOLUTE AUTO 2.27 K/mm3 (0.84-5.20); LYMPHOCYTES PERCENT AUTO 25 % (21-46); MONOCYTES PERCENT AUTO 10 % (4-13); Mean Corpuscular HGB 28.6 pg (26.0-34.0); Mean Corpuscular HGB Conc 33.2 g/dL (31.5-36.5); Mean Corpuscular Volume 86 fL (80-100); Mean Platelet Volume 9.4 fL (9.1-12.4); NEUTROPHILS ABSOLUTE AUTO 5.45 K/mm3 (1.96-9.15); NEUTROPHILS PERCENT AUTO 60 % (41-73); Platelet Count 333 K/mm3 (150-400); RDW Coefficient Variation 16.9 % (11.7-14.2); RDW Standard Deviation 53.6 fL (35.1-46.3); Red Blood Cell Count 4.55 M/mm3 (3.80-5.20); White Blood Cell Count 9.06 K/mm3 (4.00-11.30)
[2022-01-28 19:41] LABS: Albumin, Blood 2.9 g/dL (3.4-5.0); Albumin/Globulin Ratio 0.6 (0.8-1.8); Bilirubin, Total 0.3 mg/dL (0.1-1.0); Bun/Creatinine Ratio 48.5 (12.0-20.0); Calcium, Blood 9.1 mg/dL (8.5-10.1); Creatinine, Blood 0.72 mg/dL (0.40-1.00); Globulin, Blood 4.8 g/dL (2.2-4.0); Potassium, Blood 4.6 mmol/L (3.5-5.5); Total Protein, Blood 7.7 g/dL (6.4-8.2)
[2022-01-28 20:23] LABS: Source, Urine Clean Catch
[2022-01-28 20:37] LABS: Bilirubin, Urine Neg (Neg); Blood, Urine 2+ (Neg); Color, Urine Yellow (P-Yellow); Glucose Qualitative, Urine Neg (Neg); Ketones, Urine Neg (Neg); Leukocyte Esterase, Urine Neg (Neg); Nitrite, Urine Neg (Neg); Protein, Urine 3+ (Neg); Urobilinogen, Urine NORM (Normal); pH, Urine 6.5 (5.0-8.0)
[2022-01-28 20:45] LABS: Appearance, Urine Hazy (Clear)
[2022-01-28 20:47] LABS: Bacteria Mod /hpf; Squamous Epithelial Cells Rare /hpf (Few); White Blood Cells, Urine 0-2 /hpf (0-5)
[2022-01-28 22:47] LABS: Influenza A, PCR NEGATIVE (NEGATIVE); Influenza B, PCR NEGATIVE (NEGATIVE); Resp Syncytial Virus, PCR NEGATIVE (NEGATIVE); SARS-Cov-2 (COVID-19) PCR, MMC NEGATIVE (NEGATIVE)
[2022-01-28] MEDS ORDERED: DOXY100 PO (23:09)
[2022-01-28] MEDS ORDERED: PRED20 PO (23:09)
== END 2022-01-28 23:26 | disposition left against medical advice (07) ==
LOC: ER 17:45
PROVIDERS: Student in an Organized Health Care Education/Training Program
DX: J44.1 Chronic obstructive pulmonary disease with (acute) exacerbation (principal); J18.9 Pneumonia, unspecified organism; R09.02 Hypoxemia; E11.9 Type 2 diabetes mellitus without complications; I10 Essential (primary) hypertension; Z86.711 Personal history of pulmonary embolism; Z79.899 Other long term (current) drug therapy; Z79.84 Long term (current) use of oral hypoglycemic drugs; Z79.02 Long term (current) use of antithrombotics/antiplatelets; Z88.1 Allergy status to other antibiotic agents; Z88.0 Allergy status to penicillin; Z88.8 Allergy status to other drugs, medicaments and biological substances; Z91.09 Other allergy status, other than to drugs and biological substances; Z20.822 Contact with and (suspected) exposure to COVID-19
CPT/HCPCS: 0241U; 36415; 71045; 80053; 81001; 83605; 83880; 84484; 85025; 94640; 94664; J2930

== ENCOUNTER 2022-02-12 01:55 | Day surgery (SDC) | payer OTHER ==
[~2022-02-12 01:55] MED LIST changes: +DOXY100 PO; +PRED20 PO
== END 2022-02-12 23:16 | disposition home or self-care (01) ==
LOC: WOUND 01:55
DX: L89.153 Pressure ulcer of sacral region, stage 3 (principal); E11.59 Type 2 diabetes mellitus with other circulatory complications; Z72.0 Tobacco use
CPT/HCPCS: G0463

== ENCOUNTER 2022-02-12 14:03 | Emergency (ER) | payer OTHER ==
[~2022-02-12] VITALS: Ht 167.6 cm; Wt 99.8 kg
== END 2022-02-12 14:17 | disposition home or self-care (01) ==
LOC: ER 14:03
DX: Z76.89 Persons encountering health services in other specified circumstances (principal); Z88.0 Allergy status to penicillin; Z88.8 Allergy status to other drugs, medicaments and biological substances; Z88.1 Allergy status to other antibiotic agents; Z91.048 Other nonmedicinal substance allergy status
CPT/HCPCS: 99282

== ENCOUNTER 2022-03-13 04:10 | Day surgery (SDC) | payer OTHER | END 2022-03-13 22:56 | disposition home or self-care (01) | LOC: WOUND 04:10 | DX: L89.153 Pressure ulcer of sacral region, stage 3 (principal); E11.51 Type 2 diabetes mellitus with diabetic peripheral angiopathy without gangrene; E11.22 Type 2 diabetes mellitus with diabetic chronic kidney disease; N18.9 Chronic kidney disease, unspecified; J45.909 Unspecified asthma, uncomplicated; F17.200 Nicotine dependence, unspecified, uncomplicated; Z89.021 Acquired absence of right finger(s) | CPT/HCPCS: A9270; G0463 ==

== ENCOUNTER 2022-03-27 02:19 | Day surgery (SDC) | payer OTHER | END 2022-03-27 22:54 | disposition home or self-care (01) | LOC: WOUND 02:19 | DX: L89.153 Pressure ulcer of sacral region, stage 3 (principal); N18.9 Chronic kidney disease, unspecified; E11.22 Type 2 diabetes mellitus with diabetic chronic kidney disease; E11.51 Type 2 diabetes mellitus with diabetic peripheral angiopathy without gangrene; F31.9 Bipolar disorder, unspecified; J45.909 Unspecified asthma, uncomplicated; F17.200 Nicotine dependence, unspecified, uncomplicated | CPT/HCPCS: A9270 ==

== ENCOUNTER 2022-04-05 23:53 | Emergency (ER) | payer OTHER ==
[~2022-04-05] VITALS: Ht 167.6 cm; Wt 79.4 kg
[2022-04-06 00:16] LABS: BASOPHILS ABSOLUTE AUTO 0.05 K/mm3 (0.00-0.23); BASOPHILS PERCENT AUTO 0 % (0-2); EOSINOPHILS ABSOLUTE AUTO 0.31 K/mm3 (0.00-0.68); EOSINOPHILS PERCENT AUTO 3 % (0-6); Hematocrit 39.4 % (33.0-51.0); Hemoglobin 12.9 g/dL (11.5-16.0); IMMATURE GRAN ABSOLUTE AUTO 0.06 K/mm3 (0.00-0.10); IMMATURE GRAN PERCENT AUTO 1 % (0-1); LYMPHOCYTES PERCENT AUTO 17 % (21-46); MONOCYTES ABSOLUTE AUTO 0.92 K/mm3 (0.16-1.47); MONOCYTES PERCENT AUTO 8 % (4-13); Mean Corpuscular HGB 29.4 pg (26.0-34.0); Mean Corpuscular HGB Conc 32.7 g/dL (31.5-36.5); Mean Corpuscular Volume 90 fL (80-100); Mean Platelet Volume 9.5 fL (9.1-12.4); NEUTROPHILS ABSOLUTE AUTO 8.88 K/mm3 (1.96-9.15); NEUTROPHILS PERCENT AUTO 72 % (41-73); Platelet Count 270 K/mm3 (150-400); RDW Coefficient Variation 15.1 % (11.7-14.2); RDW Standard Deviation 50.5 fL (35.1-46.3); Red Blood Cell Count 4.39 M/mm3 (3.80-5.20); White Blood Cell Count 12.32 K/mm3 (4.00-11.30)
[2022-04-06 00:36] LABS: Alanine Aminotransfer (ALT/SGP 42 U/L (12-78); Albumin, Blood 2.4 g/dL (3.4-5.0); Albumin/Globulin Ratio 0.5 (0.8-1.8); Alk Phos 102 U/L (50-136); Anion Gap 7 mmol/L (6-16); Aspartate Aminotrans (AST/SGOT 48 U/L (12-37); Bilirubin, Total 0.3 mg/dL (0.1-1.0); Blood Urea Nitrogen 22 mg/dL (8-24); Bun/Creatinine Ratio 28.1 (12.0-20.0); CO2, Blood 22 mmol/L (21-32); Calcium, Blood 8.1 mg/dL (8.5-10.1); Chloride, Blood 108 mmol/L (98-108); Creatinine, Blood 0.78 mg/dL (0.40-1.00); Globulin, Blood 4.4 g/dL (2.2-4.0); Glomerular Filtration Rate 91 (60-); Glucose, Blood 145 mg/dL (70-99); Potassium, Blood 5.1 mmol/L (3.5-5.5); Sodium, Blood 137 mmol/L (136-145); Total Protein, Blood 6.8 g/dL (6.4-8.2)
[2022-04-06 00:51] LABS: Ethanol (Alcohol), Blood, Med <3 mg/dL
[2022-04-06 02:19] LABS: Influenza A, PCR NEGATIVE (NEGATIVE); Influenza B, PCR NEGATIVE (NEGATIVE); Resp Syncytial Virus, PCR NEGATIVE (NEGATIVE); SARS-Cov-2 (COVID-19) PCR, MMC NEGATIVE (NEGATIVE)
[2022-04-06 05:11] LABS: U Amphetamine Screen Not Detected; U Methamphetamine Screen Not Detected
[2022-04-06 05:12] LABS: U Barbituate Screen Not Detected; U Benzodiazapine Screen Not Detected; U Buprenorphine Screen Not Detected; U Cannabinoids Screen DETECTED; U Cocaine Screen Not Detected; U Methadone Screen Not Detected; U Opiates Screen DETECTED; U Oxycodone Screen Not Detected; U Phencyclidine Screen Not Detected; U Propoxyphene Screen Not Detected
== END 2022-04-06 04:55 | disposition home or self-care (01) ==
LOC: ER 23:53
PROVIDERS: Emergency Medicine
DX: R41.82 Altered mental status, unspecified (principal); F12.90 Cannabis use, unspecified, uncomplicated; T43.595A Adverse effect of other antipsychotics and neuroleptics, initial encounter; Z88.8 Allergy status to other drugs, medicaments and biological substances; Z88.1 Allergy status to other antibiotic agents; Z88.0 Allergy status to penicillin; Z91.048 Other nonmedicinal substance allergy status; Z79.899 Other long term (current) drug therapy; Z79.84 Long term (current) use of oral hypoglycemic drugs; Z79.02 Long term (current) use of antithrombotics/antiplatelets
CPT/HCPCS: 0241U; 36415; 70450; 71045; 80053; 83880; 84484; 85025; 93005; 93010; G0480; J7030

== ENCOUNTER → 2022-04-08 | Outpatient (CLI) | payer OTHER ==
[2022-04-09 15:29] LABS: Appearance, Urine Hazy (Clear); Color, Urine Yellow (P-Yellow); Leukocyte Esterase, Urine 2+ (Neg); Nitrite, Urine Neg (Neg)
[2022-04-09 15:30] LABS: Bacteria Few /hpf; Bilirubin, Urine 1+ (Neg); Blood, Urine 1+ (Neg); Glucose Qualitative, Urine Neg (Normal); Ketones, Urine 1+ (Neg); Protein, Urine 3+ (Neg); Squamous Epithelial Cells Many /hpf (Few); Urobilinogen, Urine 1+ (Normal)
== END | disposition home or self-care (01) ==
LOC: LAB SHORT 17:00 → LAB 17:00
PROVIDERS: Family Medicine
DX: R41.82 Altered mental status, unspecified (principal)
CPT/HCPCS: 81001

== ENCOUNTER 2022-04-12 01:06 | Day surgery (SDC) | payer OTHER | END 2022-04-12 23:24 | disposition home or self-care (01) | LOC: WOUND 01:06 | DX: L89.153 Pressure ulcer of sacral region, stage 3 (principal); E11.51 Type 2 diabetes mellitus with diabetic peripheral angiopathy without gangrene; E11.22 Type 2 diabetes mellitus with diabetic chronic kidney disease; J45.909 Unspecified asthma, uncomplicated; F17.200 Nicotine dependence, unspecified, uncomplicated; Z89.021 Acquired absence of right finger(s) | CPT/HCPCS: A9270 ==

== ENCOUNTER 2022-04-19 00:40 | Day surgery (SDC) | payer OTHER | END 2022-04-19 22:52 | disposition home or self-care (01) | LOC: WOUND 00:40 | DX: L89.153 Pressure ulcer of sacral region, stage 3 (principal); Z72.0 Tobacco use; E11.22 Type 2 diabetes mellitus with diabetic chronic kidney disease; F17.200 Nicotine dependence, unspecified, uncomplicated; E11.51 Type 2 diabetes mellitus with diabetic peripheral angiopathy without gangrene; F31.9 Bipolar disorder, unspecified | CPT/HCPCS: A9270; G0463 ==

== ENCOUNTER 2022-05-03 02:12 | Day surgery (SDC) | payer OTHER | END 2022-05-03 23:10 | disposition home or self-care (01) | LOC: WOUND 02:12 | DX: L89.153 Pressure ulcer of sacral region, stage 3 (principal); E11.22 Type 2 diabetes mellitus with diabetic chronic kidney disease; N18.9 Chronic kidney disease, unspecified; J45.909 Unspecified asthma, uncomplicated; E11.51 Type 2 diabetes mellitus with diabetic peripheral angiopathy without gangrene; F31.9 Bipolar disorder, unspecified; F17.200 Nicotine dependence, unspecified, uncomplicated | CPT/HCPCS: A9270; G0463 ==

== ENCOUNTER 2022-05-10 00:45 | Day surgery (SDC) | payer OTHER | END 2022-05-10 23:16 | disposition home or self-care (01) | LOC: WOUND 00:45 | DX: L89.153 Pressure ulcer of sacral region, stage 3 (principal); E11.59 Type 2 diabetes mellitus with other circulatory complications; E11.51 Type 2 diabetes mellitus with diabetic peripheral angiopathy without gangrene; E11.22 Type 2 diabetes mellitus with diabetic chronic kidney disease; N18.9 Chronic kidney disease, unspecified; F17.200 Nicotine dependence, unspecified, uncomplicated | CPT/HCPCS: A9270; G0463 ==

== ENCOUNTER 2022-05-24 01:58 | Day surgery (SDC) | payer OTHER | END 2022-05-25 23:35 | disposition home or self-care (01) | LOC: WOUND 01:58 | DX: L89.153 Pressure ulcer of sacral region, stage 3 (principal); E11.22 Type 2 diabetes mellitus with diabetic chronic kidney disease; N18.9 Chronic kidney disease, unspecified; F31.9 Bipolar disorder, unspecified; E11.51 Type 2 diabetes mellitus with diabetic peripheral angiopathy without gangrene; F17.200 Nicotine dependence, unspecified, uncomplicated | CPT/HCPCS: A9270; G0463 ==

== ENCOUNTER 2022-06-14 03:19 | Day surgery (SDC) | payer OTHER | END 2022-06-14 23:17 | disposition home or self-care (01) | LOC: WOUND 03:19 | DX: E11.622 Type 2 diabetes mellitus with other skin ulcer (principal); L89.153 Pressure ulcer of sacral region, stage 3; F17.290 Nicotine dependence, other tobacco product, uncomplicated; F31.9 Bipolar disorder, unspecified; I73.9 Peripheral vascular disease, unspecified; J45.909 Unspecified asthma, uncomplicated; Z89.111 Acquired absence of right hand | CPT/HCPCS: A9270; G0463 ==

== ENCOUNTER 2022-07-05 01:53 | Day surgery (SDC) | payer OTHER | END 2022-07-05 22:53 | disposition home or self-care (01) | LOC: WOUND 01:53 | DX: E11.622 Type 2 diabetes mellitus with other skin ulcer (principal); L89.153 Pressure ulcer of sacral region, stage 3; E11.59 Type 2 diabetes mellitus with other circulatory complications | CPT/HCPCS: 99406; A9270; G0463 ==

== ENCOUNTER 2022-07-19 00:15 | Day surgery (SDC) | payer OTHER | END 2022-07-19 23:52 | disposition home or self-care (01) | LOC: WOUND 00:15 | DX: L89.153 Pressure ulcer of sacral region, stage 3 (principal); N18.9 Chronic kidney disease, unspecified; E11.22 Type 2 diabetes mellitus with diabetic chronic kidney disease; E11.51 Type 2 diabetes mellitus with diabetic peripheral angiopathy without gangrene; Z89.111 Acquired absence of right hand; Z72.0 Tobacco use | CPT/HCPCS: 99406; A9270; G0463 ==

== ENCOUNTER 2022-08-02 00:45 | Day surgery (SDC) | payer OTHER | END 2022-08-02 23:17 | disposition home or self-care (01) | LOC: WOUND 00:45 | DX: L89.153 Pressure ulcer of sacral region, stage 3 (principal); E11.59 Type 2 diabetes mellitus with other circulatory complications; E11.51 Type 2 diabetes mellitus with diabetic peripheral angiopathy without gangrene; E11.22 Type 2 diabetes mellitus with diabetic chronic kidney disease; N18.9 Chronic kidney disease, unspecified; J45.909 Unspecified asthma, uncomplicated; F17.200 Nicotine dependence, unspecified, uncomplicated | CPT/HCPCS: G0463 ==

== ENCOUNTER 2022-08-23 02:23 | Day surgery (SDC) | payer OTHER | END 2022-08-23 22:59 | disposition home or self-care (01) | LOC: WOUND 02:23 | DX: L89.153 Pressure ulcer of sacral region, stage 3 (principal); E11.59 Type 2 diabetes mellitus with other circulatory complications; E11.22 Type 2 diabetes mellitus with diabetic chronic kidney disease; N18.9 Chronic kidney disease, unspecified; J45.909 Unspecified asthma, uncomplicated; E11.51 Type 2 diabetes mellitus with diabetic peripheral angiopathy without gangrene; F17.200 Nicotine dependence, unspecified, uncomplicated | CPT/HCPCS: 99406; A9270; G0463 ==

== ENCOUNTER 2022-09-06 02:19 | Day surgery (SDC) | payer OTHER | END 2022-09-06 22:49 | disposition home or self-care (01) | LOC: WOUND 02:19 | DX: L89.153 Pressure ulcer of sacral region, stage 3 (principal); E11.59 Type 2 diabetes mellitus with other circulatory complications; Z72.0 Tobacco use | CPT/HCPCS: 99406; A9270 ==

== ENCOUNTER 2022-09-20 01:00 | Day surgery (SDC) | payer OTHER | END 2022-09-20 22:58 | disposition home or self-care (01) | LOC: WOUND 01:00 | DX: L89.153 Pressure ulcer of sacral region, stage 3 (principal); E11.622 Type 2 diabetes mellitus with other skin ulcer; E11.59 Type 2 diabetes mellitus with other circulatory complications; E11.22 Type 2 diabetes mellitus with diabetic chronic kidney disease; N18.9 Chronic kidney disease, unspecified; J45.909 Unspecified asthma, uncomplicated; F17.200 Nicotine dependence, unspecified, uncomplicated | CPT/HCPCS: A9270; G0463 ==

== ENCOUNTER 2022-10-18 01:29 | Day surgery (SDC) | payer OTHER | END 2022-10-20 22:42 | disposition home or self-care (01) | LOC: WOUND 01:29 | DX: L89.153 Pressure ulcer of sacral region, stage 3 (principal); E11.622 Type 2 diabetes mellitus with other skin ulcer; E11.59 Type 2 diabetes mellitus with other circulatory complications; E11.22 Type 2 diabetes mellitus with diabetic chronic kidney disease; N18.9 Chronic kidney disease, unspecified; Z72.0 Tobacco use | CPT/HCPCS: A9270; G0463 ==

== ENCOUNTER 2022-11-01 04:08 | Day surgery (SDC) | payer OTHER | END 2022-11-04 23:14 | disposition home or self-care (01) | LOC: WOUND 04:08 | DX: L89.153 Pressure ulcer of sacral region, stage 3 (principal); E11.622 Type 2 diabetes mellitus with other skin ulcer; E11.59 Type 2 diabetes mellitus with other circulatory complications; Z72.0 Tobacco use | CPT/HCPCS: 99406; G0463 ==

== ENCOUNTER 2022-12-09 01:04 | Day surgery (SDC) | payer OTHER | END 2022-12-09 22:58 | disposition home or self-care (01) | LOC: WOUND 01:04 | DX: L89.153 Pressure ulcer of sacral region, stage 3 (principal); E11.622 Type 2 diabetes mellitus with other skin ulcer; E11.59 Type 2 diabetes mellitus with other circulatory complications; Z72.0 Tobacco use | CPT/HCPCS: 99406; G0463 ==

== ENCOUNTER 2022-12-27 03:14 | Day surgery (SDC) | payer OTHER | END 2022-12-27 22:48 | disposition home or self-care (01) | LOC: WOUND 03:14 | DX: L89.153 Pressure ulcer of sacral region, stage 3 (principal); E11.622 Type 2 diabetes mellitus with other skin ulcer; Z72.0 Tobacco use; E11.59 Type 2 diabetes mellitus with other circulatory complications | CPT/HCPCS: 99406; A9270; G0463 ==

== ENCOUNTER 2023-01-10 00:50 | Day surgery (SDC) | payer OTHER | END 2023-01-10 22:53 | disposition home or self-care (01) | LOC: WOUND 00:50 | DX: L89.153 Pressure ulcer of sacral region, stage 3 (principal); N18.9 Chronic kidney disease, unspecified; E11.22 Type 2 diabetes mellitus with diabetic chronic kidney disease; F17.200 Nicotine dependence, unspecified, uncomplicated; E11.622 Type 2 diabetes mellitus with other skin ulcer | CPT/HCPCS: 99406; A9270; G0463 ==

== ENCOUNTER 2023-01-31 01:01 | Day surgery (SDC) | payer OTHER | END 2023-01-31 22:47 | disposition home or self-care (01) | LOC: WOUND 01:01 | DX: L89.153 Pressure ulcer of sacral region, stage 3 (principal); T21.20XD Burn of second degree of trunk, unspecified site, subsequent encounter; T22.211D Burn of second degree of right forearm, subsequent encounter; T23.202D Burn of second degree of left hand, unspecified site, subsequent encounter; T24.212D Burn of second degree of left thigh, subsequent encounter; E11.59 Type 2 diabetes mellitus with other circulatory complications; Z72.0 Tobacco use; E11.622 Type 2 diabetes mellitus with other skin ulcer | CPT/HCPCS: A9270; G0463 ==

== ENCOUNTER 2023-02-14 00:54 | Day surgery (SDC) | payer OTHER | END 2023-02-14 22:46 | disposition home or self-care (01) | LOC: WOUND 00:54 | DX: L89.153 Pressure ulcer of sacral region, stage 3 (principal); T22.211D Burn of second degree of right forearm, subsequent encounter; T22.20XD Burn of second degree of shoulder and upper limb, except wrist and hand, unspecified site, subsequent encounter; T21.22XD Burn of second degree of abdominal wall, subsequent encounter; F31.9 Bipolar disorder, unspecified; E11.622 Type 2 diabetes mellitus with other skin ulcer; E11.51 Type 2 diabetes mellitus with diabetic peripheral angiopathy without gangrene; E11.22 Type 2 diabetes mellitus with diabetic chronic kidney disease; N18.9 Chronic kidney disease, unspecified; X08.8XXD Exposure to other specified smoke, fire and flames, subsequent encounter; Z72.0 Tobacco use | CPT/HCPCS: G0463 ==

== ENCOUNTER 2023-03-07 00:34 | Day surgery (SDC) | payer OTHER | END 2023-03-07 22:48 | disposition home or self-care (01) | LOC: WOUND 00:34 | DX: L89.153 Pressure ulcer of sacral region, stage 3 (principal); E11.622 Type 2 diabetes mellitus with other skin ulcer; T21.20XD Burn of second degree of trunk, unspecified site, subsequent encounter; T22.211D Burn of second degree of right forearm, subsequent encounter; T23.202D Burn of second degree of left hand, unspecified site, subsequent encounter; T24.212D Burn of second degree of left thigh, subsequent encounter; E11.59 Type 2 diabetes mellitus with other circulatory complications; Z72.0 Tobacco use | CPT/HCPCS: 99406; A9270; G0463 ==

== ENCOUNTER 2023-03-21 05:01 | Day surgery (SDC) | payer OTHER | END 2023-03-21 22:42 | disposition home or self-care (01) | LOC: WOUND 05:01 | DX: L89.153 Pressure ulcer of sacral region, stage 3 (principal); E11.622 Type 2 diabetes mellitus with other skin ulcer; T21.20XD Burn of second degree of trunk, unspecified site, subsequent encounter; T22.211D Burn of second degree of right forearm, subsequent encounter; T23.202D Burn of second degree of left hand, unspecified site, subsequent encounter; T24.212D Burn of second degree of left thigh, subsequent encounter; E11.59 Type 2 diabetes mellitus with other circulatory complications; Z72.0 Tobacco use | CPT/HCPCS: 99406; A9270; G0463 ==

== ENCOUNTER 2023-04-04 05:12 | Day surgery (SDC) | payer OTHER | END 2023-04-04 22:52 | disposition home or self-care (01) | LOC: WOUND 05:12 | DX: L89.153 Pressure ulcer of sacral region, stage 3 (principal); E11.622 Type 2 diabetes mellitus with other skin ulcer; E11.59 Type 2 diabetes mellitus with other circulatory complications; Z72.0 Tobacco use | CPT/HCPCS: A9270; G0463 ==

== ENCOUNTER 2023-04-13 12:47 | Emergency (ER) | payer OTHER ==
[~2023-04-13] VITALS: Ht 167.6 cm; Wt 72.6 kg
[2023-04-13 13:02] VITALS: BP 118/78
== END 2023-04-13 15:00 | disposition home or self-care (01) ==
LOC: ER 12:47
DX: S82.64XA Nondisplaced fracture of lateral malleolus of right fibula, initial encounter for closed fracture (principal); W18.40XA Slipping, tripping and stumbling without falling, unspecified, initial encounter; E11.9 Type 2 diabetes mellitus without complications; F17.200 Nicotine dependence, unspecified, uncomplicated; Z88.8 Allergy status to other drugs, medicaments and biological substances; Z88.1 Allergy status to other antibiotic agents; Z88.0 Allergy status to penicillin; Z91.048 Other nonmedicinal substance allergy status; Z79.899 Other long term (current) drug therapy; Z79.84 Long term (current) use of oral hypoglycemic drugs
CPT/HCPCS: 29515; 73610; 96372-59; 99283-25; J1885

== ENCOUNTER 2023-04-23 02:33 | Day surgery (SDC) | payer OTHER | END 2023-04-23 22:48 | disposition home or self-care (01) | LOC: WOUND 02:33 | DX: L89.153 Pressure ulcer of sacral region, stage 3 (principal); E11.22 Type 2 diabetes mellitus with diabetic chronic kidney disease; N18.9 Chronic kidney disease, unspecified; E11.51 Type 2 diabetes mellitus with diabetic peripheral angiopathy without gangrene; F31.9 Bipolar disorder, unspecified; J45.909 Unspecified asthma, uncomplicated; F17.200 Nicotine dependence, unspecified, uncomplicated; E11.622 Type 2 diabetes mellitus with other skin ulcer; T21.20XD Burn of second degree of trunk, unspecified site, subsequent encounter; T22.211D Burn of second degree of right forearm, subsequent encounter; T23.202D Burn of second degree of left hand, unspecified site, subsequent encounter; T24.212D Burn of second degree of left thigh, subsequent encounter; E11.59 Type 2 diabetes mellitus with other circulatory complications | CPT/HCPCS: 99406; A9270; G0463 ==

== ENCOUNTER 2023-05-07 02:22 | Day surgery (SDC) | payer OTHER | END 2023-05-07 22:47 | disposition home or self-care (01) | LOC: WOUND 02:22 | DX: L89.153 Pressure ulcer of sacral region, stage 3 (principal); E11.51 Type 2 diabetes mellitus with diabetic peripheral angiopathy without gangrene; E11.22 Type 2 diabetes mellitus with diabetic chronic kidney disease; N18.9 Chronic kidney disease, unspecified; F31.9 Bipolar disorder, unspecified; J45.909 Unspecified asthma, uncomplicated; E11.622 Type 2 diabetes mellitus with other skin ulcer; T21.20XD Burn of second degree of trunk, unspecified site, subsequent encounter; T22.211D Burn of second degree of right forearm, subsequent encounter; T23.202D Burn of second degree of left hand, unspecified site, subsequent encounter; T24.212D Burn of second degree of left thigh, subsequent encounter; E11.59 Type 2 diabetes mellitus with other circulatory complications; Z72.0 Tobacco use | CPT/HCPCS: A9270 ==

== ENCOUNTER 2023-06-04 03:21 | Day surgery (SDC) | payer OTHER | END 2023-06-04 22:47 | disposition home or self-care (01) | LOC: WOUND 03:21 | DX: L89.153 Pressure ulcer of sacral region, stage 3 (principal); E11.622 Type 2 diabetes mellitus with other skin ulcer; T21.20XD Burn of second degree of trunk, unspecified site, subsequent encounter; T22.211D Burn of second degree of right forearm, subsequent encounter; T23.202D Burn of second degree of left hand, unspecified site, subsequent encounter; T24.212D Burn of second degree of left thigh, subsequent encounter; X08.8XXD Exposure to other specified smoke, fire and flames, subsequent encounter; E11.59 Type 2 diabetes mellitus with other circulatory complications; Z72.0 Tobacco use; E11.22 Type 2 diabetes mellitus with diabetic chronic kidney disease; N18.9 Chronic kidney disease, unspecified; J45.909 Unspecified asthma, uncomplicated | CPT/HCPCS: A9270 ==

== ENCOUNTER 2023-06-18 03:12 | Day surgery (SDC) | payer OTHER | END 2023-06-18 23:23 | disposition home or self-care (01) | LOC: WOUND 03:12 | DX: L89.153 Pressure ulcer of sacral region, stage 3 (principal); E11.22 Type 2 diabetes mellitus with diabetic chronic kidney disease; F17.200 Nicotine dependence, unspecified, uncomplicated; J45.909 Unspecified asthma, uncomplicated; E11.51 Type 2 diabetes mellitus with diabetic peripheral angiopathy without gangrene; F31.9 Bipolar disorder, unspecified; T21.20XD Burn of second degree of trunk, unspecified site, subsequent encounter; T22.211D Burn of second degree of right forearm, subsequent encounter; T23.202D Burn of second degree of left hand, unspecified site, subsequent encounter; T24.212D Burn of second degree of left thigh, subsequent encounter | CPT/HCPCS: A9270 ==

== ENCOUNTER 2023-07-02 03:00 | Day surgery (SDC) | payer OTHER | END 2023-07-02 23:21 | disposition home or self-care (01) | LOC: WOUND 03:00 | DX: L89.153 Pressure ulcer of sacral region, stage 3 (principal); E11.51 Type 2 diabetes mellitus with diabetic peripheral angiopathy without gangrene; E11.22 Type 2 diabetes mellitus with diabetic chronic kidney disease; F31.9 Bipolar disorder, unspecified; J45.909 Unspecified asthma, uncomplicated; T21.20XD Burn of second degree of trunk, unspecified site, subsequent encounter; T23.202D Burn of second degree of left hand, unspecified site, subsequent encounter; T22.211D Burn of second degree of right forearm, subsequent encounter; T24.212D Burn of second degree of left thigh, subsequent encounter; E11.59 Type 2 diabetes mellitus with other circulatory complications; Z72.0 Tobacco use ==

== ENCOUNTER 2023-07-09 01:41 | Day surgery (SDC) | payer OTHER | END 2023-07-09 23:33 | disposition home or self-care (01) | LOC: WOUND 01:41 | DX: L89.153 Pressure ulcer of sacral region, stage 3 (principal); E11.22 Type 2 diabetes mellitus with diabetic chronic kidney disease; E11.51 Type 2 diabetes mellitus with diabetic peripheral angiopathy without gangrene; F31.9 Bipolar disorder, unspecified; J45.909 Unspecified asthma, uncomplicated; E11.622 Type 2 diabetes mellitus with other skin ulcer; T21.20XD Burn of second degree of trunk, unspecified site, subsequent encounter; T22.211D Burn of second degree of right forearm, subsequent encounter; T23.202D Burn of second degree of left hand, unspecified site, subsequent encounter; T24.212D Burn of second degree of left thigh, subsequent encounter; E11.59 Type 2 diabetes mellitus with other circulatory complications; Z72.0 Tobacco use | CPT/HCPCS: A6196 ==

== ENCOUNTER 2023-07-18 01:59 | Day surgery (SDC) | payer OTHER | END 2023-07-18 23:08 | disposition home or self-care (01) | LOC: WOUND 01:59 | DX: L89.153 Pressure ulcer of sacral region, stage 3 (principal); E11.22 Type 2 diabetes mellitus with diabetic chronic kidney disease; N18.9 Chronic kidney disease, unspecified; E11.51 Type 2 diabetes mellitus with diabetic peripheral angiopathy without gangrene; J45.909 Unspecified asthma, uncomplicated; F31.9 Bipolar disorder, unspecified; T21.20XD Burn of second degree of trunk, unspecified site, subsequent encounter; T22.211D Burn of second degree of right forearm, subsequent encounter; T23.202D Burn of second degree of left hand, unspecified site, subsequent encounter; T24.212D Burn of second degree of left thigh, subsequent encounter; E11.59 Type 2 diabetes mellitus with other circulatory complications; Z72.0 Tobacco use | CPT/HCPCS: 99406; A6213; G0463 ==

== ENCOUNTER 2023-10-10 12:51 | Day surgery (SDC) | payer OTHER | END 2023-10-10 22:42 | disposition home or self-care (01) | LOC: WOUND 12:51 | DX: L89.153 Pressure ulcer of sacral region, stage 3 (principal); E11.622 Type 2 diabetes mellitus with other skin ulcer; T21.20XD Burn of second degree of trunk, unspecified site, subsequent encounter; T22.211D Burn of second degree of right forearm, subsequent encounter; T23.202D Burn of second degree of left hand, unspecified site, subsequent encounter; T24.212D Burn of second degree of left thigh, subsequent encounter; E11.69 Type 2 diabetes mellitus with other specified complication; Z72.0 Tobacco use; X08.8XXD Exposure to other specified smoke, fire and flames, subsequent encounter; N18.9 Chronic kidney disease, unspecified; E11.22 Type 2 diabetes mellitus with diabetic chronic kidney disease; J45.909 Unspecified asthma, uncomplicated ==

== ENCOUNTER 2023-12-03 03:04 | Day surgery (SDC) | payer OTHER | END 2023-12-03 23:08 | disposition home or self-care (01) | LOC: WOUND 03:04 | DX: L89.153 Pressure ulcer of sacral region, stage 3 (principal); E11.622 Type 2 diabetes mellitus with other skin ulcer; T21.20XD Burn of second degree of trunk, unspecified site, subsequent encounter; T22.211D Burn of second degree of right forearm, subsequent encounter; T23.202D Burn of second degree of left hand, unspecified site, subsequent encounter; T24.212D Burn of second degree of left thigh, subsequent encounter; E11.22 Type 2 diabetes mellitus with diabetic chronic kidney disease; N18.9 Chronic kidney disease, unspecified | CPT/HCPCS: G0463 ==

== ENCOUNTER 2023-12-17 03:25 | Day surgery (SDC) | payer OTHER | END 2023-12-18 22:45 | disposition home or self-care (01) | LOC: WOUND 03:25 | DX: L89.153 Pressure ulcer of sacral region, stage 3 (principal); S61.501D Unspecified open wound of right wrist, subsequent encounter; E11.51 Type 2 diabetes mellitus with diabetic peripheral angiopathy without gangrene; E11.59 Type 2 diabetes mellitus with other circulatory complications; E11.622 Type 2 diabetes mellitus with other skin ulcer; E11.22 Type 2 diabetes mellitus with diabetic chronic kidney disease; N18.9 Chronic kidney disease, unspecified; F31.9 Bipolar disorder, unspecified; S60.871D Other superficial bite of right wrist, subsequent encounter; T21.20XD Burn of second degree of trunk, unspecified site, subsequent encounter; T22.211D Burn of second degree of right forearm, subsequent encounter; T23.202D Burn of second degree of left hand, unspecified site, subsequent encounter; T24.212D Burn of second degree of left thigh, subsequent encounter; Z72.0 Tobacco use; X58.XXXD Exposure to other specified factors, subsequent encounter | CPT/HCPCS: G0463 ==

== ENCOUNTER 2024-01-02 03:48 | Day surgery (SDC) | payer OTHER ==
[2024-01-02] MEDS ORDERED: Lidocaine HCl 4% Cream 5 GM ONE (14:12)
== END 2024-01-02 23:05 | disposition home or self-care (01) ==
LOC: WOUND 03:48
DX: L89.153 Pressure ulcer of sacral region, stage 3 (principal); S61.501D Unspecified open wound of right wrist, subsequent encounter; E11.622 Type 2 diabetes mellitus with other skin ulcer; T21.20XD Burn of second degree of trunk, unspecified site, subsequent encounter; T22.211D Burn of second degree of right forearm, subsequent encounter; T23.202D Burn of second degree of left hand, unspecified site, subsequent encounter; T24.212D Burn of second degree of left thigh, subsequent encounter; E11.59 Type 2 diabetes mellitus with other circulatory complications; Z72.0 Tobacco use; X58.XXXD Exposure to other specified factors, subsequent encounter
CPT/HCPCS: A9270

== ENCOUNTER 2024-01-21 05:45 | Day surgery (SDC) | payer OTHER | END 2024-01-21 23:13 | disposition home or self-care (01) | LOC: WOUND 05:45 | DX: S60.871A Other superficial bite of right wrist, initial encounter (principal); L89.153 Pressure ulcer of sacral region, stage 3; E11.622 Type 2 diabetes mellitus with other skin ulcer; E11.59 Type 2 diabetes mellitus with other circulatory complications; E11.22 Type 2 diabetes mellitus with diabetic chronic kidney disease; N18.9 Chronic kidney disease, unspecified; J45.909 Unspecified asthma, uncomplicated; F17.200 Nicotine dependence, unspecified, uncomplicated; W54.0XXA Bitten by dog, initial encounter | CPT/HCPCS: 36415; 80053; 80061; 83036; 84443; 85025; G0463 ==

== ENCOUNTER 2024-01-29 02:20 | Day surgery (SDC) | payer OTHER | END 2024-01-29 22:51 | disposition home or self-care (01) | LOC: WOUND 02:20 | DX: S60.871A Other superficial bite of right wrist, initial encounter (principal); E11.22 Type 2 diabetes mellitus with diabetic chronic kidney disease; N18.9 Chronic kidney disease, unspecified; E11.51 Type 2 diabetes mellitus with diabetic peripheral angiopathy without gangrene; J45.909 Unspecified asthma, uncomplicated; W54.0XXA Bitten by dog, initial encounter | CPT/HCPCS: G0463 ==

== ENCOUNTER 2024-07-22 18:41 | Inpatient (IN) | payer OTHER ==
[~2024-07-22] VITALS: Ht 167.6 cm; Wt 68.5 kg
[~2024-07-22 18:41] MED LIST changes: -ATOR80; +ATOR80 PO
[2024-07-22 19:35] LABS: BASOPHILS ABSOLUTE AUTO 0.11 K/mm3 (0.00-0.23); BASOPHILS PERCENT AUTO 0 % (0-2); EOSINOPHILS ABSOLUTE AUTO 0.02 K/mm3 (0.00-0.68); EOSINOPHILS PERCENT AUTO 0 % (0-6); Hematocrit 40.9 % (33.0-51.0); Hemoglobin 14.1 g/dL (11.5-16.0); IMMATURE GRAN ABSOLUTE AUTO 0.36 K/mm3 (0.00-0.10); IMMATURE GRAN PERCENT AUTO 1 % (0-1); LYMPHOCYTES ABSOLUTE AUTO 1.35 K/mm3 (0.84-5.20); LYMPHOCYTES PERCENT AUTO 4 % (21-46); MONOCYTES ABSOLUTE AUTO 1.96 K/mm3 (0.16-1.47); MONOCYTES PERCENT AUTO 5 % (4-13); Mean Corpuscular HGB 29.9 pg (26.0-34.0); Mean Corpuscular HGB Conc 34.5 g/dL (31.5-36.5); Mean Corpuscular Volume 87 fL (80-100); Mean Platelet Volume 9.1 fL (9.1-12.4); NEUTROPHILS ABSOLUTE AUTO 33.16 K/mm3 (1.96-9.15); NEUTROPHILS PERCENT AUTO 90 % (41-73); Platelet Count 315 K/mm3 (150-400); RDW Coefficient Variation 12.8 % (11.7-14.2); RDW Standard Deviation 40.7 fL (35.1-46.3); Red Blood Cell Count 4.71 M/mm3 (3.80-5.20); White Blood Cell Count 36.96 K/mm3 (4.00-11.30)
[2024-07-22 20:14] LABS: Albumin, Blood 2.8 g/dL (3.4-5.0); Albumin/Globulin Ratio 0.5 (0.8-1.8); Bilirubin, Total 0.7 mg/dL (0.1-1.0); Bun/Creatinine Ratio 18.2 (12.0-20.0); Calcium, Blood 8.9 mg/dL (8.5-10.1); Creatinine, Blood 0.88 mg/dL (0.40-1.00); Globulin, Blood 5.4 g/dL (2.2-4.0); Potassium, Blood 3.8 mmol/L (3.5-5.5); Total Protein, Blood 8.2 g/dL (6.4-8.2)
[2024-07-22 21:40] LABS: Source, Urine Clean Catch
[2024-07-22 21:45] LABS: Appearance, Urine Clear (Clear); Bilirubin, Urine Neg (Neg); Blood, Urine 3+ (Neg); Color, Urine Yellow (P-Yellow); Glucose Qualitative, Urine Neg (Neg); Ketones, Urine 1+ (Neg); Leukocyte Esterase, Urine 1+ (Neg); Nitrite, Urine Pos (Neg); Protein, Urine 4+ (Neg); Urobilinogen, Urine NORM (Normal)
[2024-07-22 21:57] LABS: Amorphous Light (0-Heavy); Bacteria Many /hpf; Red Blood Cells, Urine 0-2 /hpf (0-2); Squamous Epithelial Cells Mod /hpf (Few); White Blood Cells, Urine 0-2 /hpf (0-5)
[2024-07-22] MEDS ORDERED: CefTRIAXone Sodium 1,000 MG in NS 100 ML IV ONE (22:05)
[2024-07-22] MEDS ORDERED: Vancomycin HCL 1,250 MG in NS 250 ML IV ONE (22:05)
[2024-07-22] MEDS ORDERED: NS 1,000 ML IV SCH ×2 (22:05→23:45)
[2024-07-22] MEDS ORDERED: Magnesium Hydroxide Conc 10 ML UDC PO PRN (23:45)
[2024-07-23 02:10] VITALS: BP 143/79
[2024-07-23] MEDS ORDERED: NS 1,000 ML IV ONE (02:16)
[2024-07-23] MEDS ORDERED: FentaNYL Citrate 50 MCG/ML 2 ML Injection IV PRN (03:50)
--- NOTE | 2024-07-23 06:22 | NUR ---
PT A&O X3, NOT OFFERING ANY COMMUNICATION OF HISTORY OR MEDICATIONS, SHE JUST WANTS TO SLEEP. PT HAS PAIN IN ABDOMEN, ABDOMEN IS DISTENDED, HAS HAD A LOOSE BM HERE ON UNIT. VS WNL WITH EXCEPTION OF O2 SAT WHICH WILL DECREASE WITH SLEEP. PT MEDICATED WITH FENTANYL. PT UP WITH ASSIST SHE IS UNSTEADY. WILL MONITOR I&O D/T ABX THERAPY. PT TELE NSR IN 90'S. IVF RUNNING AT 125/HR.
[2024-07-23 07:24] VITALS: BP 100/65
[2024-07-23] MEDS ORDERED: Insulin Human Lispro 100 Units/ML 3ML Syringe SC SCH (07:30)
[2024-07-23] MEDS ORDERED: Lactobacil 2-S.Thermo-Bifido 1 1 Cap PO SCH (09:00)
[2024-07-23 09:22] LABS: BASOPHILS ABSOLUTE AUTO 0.04 K/mm3 (0.00-0.23); BASOPHILS PERCENT AUTO 0 % (0-2); EOSINOPHILS ABSOLUTE AUTO 0.05 K/mm3 (0.00-0.68); EOSINOPHILS PERCENT AUTO 0 % (0-6); Hematocrit 36.4 % (33.0-51.0); Hemoglobin 12.6 g/dL (11.5-16.0); IMMATURE GRAN ABSOLUTE AUTO 0.17 K/mm3 (0.00-0.10); IMMATURE GRAN PERCENT AUTO 1 % (0-1); LYMPHOCYTES ABSOLUTE AUTO 1.52 K/mm3 (0.84-5.20); LYMPHOCYTES PERCENT AUTO 6 % (21-46); MONOCYTES ABSOLUTE AUTO 1.52 K/mm3 (0.16-1.47); MONOCYTES PERCENT AUTO 6 % (4-13); Mean Corpuscular HGB 30.4 pg (26.0-34.0); Mean Corpuscular HGB Conc 34.6 g/dL (31.5-36.5); Mean Corpuscular Volume 88 fL (80-100); NEUTROPHILS ABSOLUTE AUTO 22.47 K/mm3 (1.96-9.15); NEUTROPHILS PERCENT AUTO 87 % (41-73); Platelet Count 256 K/mm3 (150-400); RDW Standard Deviation 41.8 fL (35.1-46.3); Red Blood Cell Count 4.15 M/mm3 (3.80-5.20); White Blood Cell Count 25.77 K/mm3 (4.00-11.30)
[2024-07-23 09:42] LABS: Albumin, Blood 2.4 g/dL (3.4-5.0); Albumin/Globulin Ratio 0.5 (0.8-1.8); Bilirubin, Total 0.5 mg/dL (0.1-1.0); Bun/Creatinine Ratio 18.1 (12.0-20.0); Calcium, Blood 8.4 mg/dL (8.5-10.1); Creatinine, Blood 0.72 mg/dL (0.40-1.00); Globulin, Blood 4.7 g/dL (2.2-4.0); Total Protein, Blood 7.1 g/dL (6.4-8.2)
[2024-07-23] MEDS ORDERED: GABA800 PO (10:49)
[2024-07-23] MEDS ORDERED: XARELTO2.5 M1 PO (10:54)
[2024-07-23] MEDS ORDERED: OXYC5 PO (10:54)
[2024-07-23] MEDS ORDERED: TRAZ100 PO (10:54)
--- NOTE | 2024-07-23 11:03 | NUR ---
CALLED DR DE GUZMAN- PT HOME MED REC COMPLETED. REQUESTED PT HOME MEDS RESTARTED. PER DR DE GUZMAN THE PLAN IS TO TRANSITION TO HOSPICE. RECIEVED A VERBAL ORDER FOR PT HOME DOSE OXY.
[2024-07-23] MEDS ORDERED: Nicotine 21 MG PATCH TOP SCH (11:10)
[2024-07-23] MEDS ORDERED: OxyCODONE HCL 5 MG TAB PO PRN (11:10)
[2024-07-23 11:37] VITALS: BP 138/73
[2024-07-23] MEDS ORDERED: Flexeril10 MG PO (13:33)
--- NOTE | 2024-07-23 20:13 | NUR ---
SHIFT SUMMARY- PT IS A 1PA WITH TRANSFERS TO THE BATHROOM. PT HAS DELAYED RESPONSES WHEN STAFF ASK QUESTIONS. PLAN WAS FOR THE PT TO GO HOME ON HOSPICE. PT HOME MEDS WERE NOT ORDERED. CALLED DR DE GUZMAN, RECIEVED VERBAL ORDER FOR PT HOME OXY AND A NICOTINE PATCH. CALLED WHEN THE BLOOD CULTURE CAME BACK POSITIVE. PER DR DE GUZMAN THEY WILL WAIT AND SEE HOW THE BLOOD CULTURE GROWS OUT BEFORE DISCHARGING THE PT HOME ON HOSPICE. PT FAMILY IS VERY INVOLVED WITH HER CARE HER YOUNGEST SISTER HAS THE POA FOR THE PT, HER NUMBER IS ON THE BOARD. BEDSIDE REPORT COMPLETED WITH NIGHT RN, NO S&S OF DISTRESS NOTED AT THIS TIME. PT ON 1L O2 TOLLERATED TO KEEP SATS 88% WHILE SLEEPING.
[2024-07-23 20:36] VITALS: BP 170/84
[2024-07-23] MEDS ORDERED: CefTRIAXone Sodium 1,000 MG in NS 100 ML IV SCH (21:00)
[2024-07-23] MEDS ORDERED: Cyclobenzaprine HCl 10 MG Tab PO PRN (23:05)
[2024-07-23] MEDS ORDERED: QUEtiapine Fumarate 200 MG Tab PO ONE (23:20)
[2024-07-23] MEDS ORDERED: TraZODone HCl 100 MG Tab PO ONE (23:20)
--- NOTE | 2024-07-23 23:22 | NUR ---
PT STATED THAT SHE WOULD LIKE TO HAVE HER SEROQUIL AND TRAZADONE TONIGHT BECAUSE SHE DOESNT WANT TO HEAR "VOICES" AND HER SCHIZOPHRENIA TO "ACT UP". I CALLED THE HOSPITALIST AND HE SAID TO GIVE HER A ONE TIME DOSE OF THE TRAZODONE AND SEROQUIL TONIGHT THAT SHE USUALLY TAKES AT HOME. SEE EMAR FOR MORE INFO
[2024-07-24 00:14] VITALS: BP 111/78
[2024-07-24] MEDS ORDERED: Mometasone/Formoterol MDI 200/5 mcg 13 GM INH SCH (01:25)
[2024-07-24] MEDS ORDERED: Albuterol HFA200 ACT/6.7 GM INH INH PRN (01:25)
--- NOTE | 2024-07-24 05:06 | NUR ---
SHIFT SUMM: PT IS A 54 YO FULL CODE WHO WAS ADMITTED FOR SEPSIS. PT HAS BEEN ON 1 L NC WHILE ASLEEP AND CONT PULSE OX. PT IS ON TELE W/NSR IN THE 60'S.PT HAS BEEN PAINFUL THIS SHIFT AND MEDICATED PER EMAR. PT HAS A POSITIVE BLOOD CULTURE. PT HAS A MEPILEX ON COCCYX AND R SIDED ANKLE WOUND. PT HAS A NICOTINE PATCH ON R SHOULDER. PT IS ACHS BS CHECKS AND NO INSULIN NEEDED TONIGHT. PT NEEDS A ONE PERSON SBA TO COMMODE. PT HAS CALL LIGHT IN REACH AND USES IT NEEDED.
[2024-07-24 06:13] LABS: BASOPHILS ABSOLUTE AUTO 0.04 K/mm3 (0.00-0.23); BASOPHILS PERCENT AUTO 0 % (0-2); EOSINOPHILS ABSOLUTE AUTO 0.27 K/mm3 (0.00-0.68); EOSINOPHILS PERCENT AUTO 3 % (0-6); Hematocrit 35.9 % (33.0-51.0); Hemoglobin 12.3 g/dL (11.5-16.0); IMMATURE GRAN ABSOLUTE AUTO 0.03 K/mm3 (0.00-0.10); IMMATURE GRAN PERCENT AUTO 0 % (0-1); LYMPHOCYTES ABSOLUTE AUTO 1.57 K/mm3 (0.84-5.20); LYMPHOCYTES PERCENT AUTO 16 % (21-46); MONOCYTES ABSOLUTE AUTO 0.95 K/mm3 (0.16-1.47); MONOCYTES PERCENT AUTO 9 % (4-13); Mean Corpuscular HGB Conc 34.3 g/dL (31.5-36.5); Mean Corpuscular Volume 88 fL (80-100); Mean Platelet Volume 9.3 fL (9.1-12.4); NEUTROPHILS ABSOLUTE AUTO 7.23 K/mm3 (1.96-9.15); NEUTROPHILS PERCENT AUTO 72 % (41-73); Platelet Count 270 K/mm3 (150-400); RDW Coefficient Variation 12.8 % (11.7-14.2); RDW Standard Deviation 40.8 fL (35.1-46.3); White Blood Cell Count 10.09 K/mm3 (4.00-11.30)
[2024-07-24 06:52] LABS: Magnesium, Blood 1.5 mg/dL (1.6-2.4)
[2024-07-24 06:53] LABS: Albumin, Blood 2.2 g/dL (3.4-5.0); Albumin/Globulin Ratio 0.5 (0.8-1.8); Bilirubin, Total 0.2 mg/dL (0.1-1.0); Bun/Creatinine Ratio 19.6 (12.0-20.0); Calcium, Blood 8.5 mg/dL (8.5-10.1); Creatinine, Blood 0.61 mg/dL (0.40-1.00); Globulin, Blood 4.7 g/dL (2.2-4.0); Total Protein, Blood 6.9 g/dL (6.4-8.2)
[2024-07-24 07:34] VITALS: BP 131/87
[2024-07-24] MEDS ORDERED: MetFORMIN HCl 500 mg PO SCH (08:00)
[2024-07-24] MEDS ORDERED: Montelukast Sodium 10 MG Tab PO SCH (09:00)
[2024-07-24] MEDS ORDERED: Atorvastatin 40 MG Tab PO SCH (09:00)
[2024-07-24] MEDS ORDERED: Clopidogrel Bisulfate 75 MG Tab PO SCH (09:00)
[2024-07-24] MEDS ORDERED: Gabapentin 400 MG Cap PO SCH (09:00)
[2024-07-24] MEDS ORDERED: TraZODone HCl 100 MG Tab PO SCH (09:00)
[2024-07-24] MEDS ORDERED: Rivaroxaban 2.5 MG TABLET PO SCH (09:00)
[2024-07-24] MEDS ORDERED: Magnesium Sulf 2 GM/Water 50ML 50 ML IV ONE (10:40)
[2024-07-24] MEDS ORDERED: Potassium Chloride 20 MEQ TabCR PO ONE (11:00)
[2024-07-24] MEDS ORDERED: DiphenhydrAMINE HCL/Zinc Acet Cream TOP ONE (11:55)
[2024-07-24 16:51] VITALS: BP 118/63
--- NOTE | 2024-07-24 18:20 | NUR ---
SHIFT SUMMARY PT IS A/OX4, SBA TO BSC. POSITIVE BLOOD CULTURES. ON RA, SATS MAINTAINING >95%. NO ACUTE CHANGES THROUGHOUT THIS SHIFT. FAMILY AT BEDSIDE FOR MUCH OF THE DAY. DISCUSSED WITH PHYSICAN, FAMILY, AND PATIENT REGARDING POSSIBLE DISCHARGE HOME ON HOSPICE. CONTINUING IV ANTIBIOTICS.
[2024-07-24] MEDS ORDERED: QUEtiapine Fumarate 200 MG Tab PO SCH (21:00)
[2024-07-24 22:45] VITALS: BP 100/71
--- NOTE | 2024-07-25 03:14 | NUR ---
DRAW FIRE OPERATOR SUMMARY VSS. TOLERATING MEDS WELL. UP AD PETER WITH OBSERVATION. ALERT AND ORIENTED. O2 SATS IN THE 90'S PER CONT PULSE OX, WHEN ATTACHED. VOICED SHE WAS UP TO THE BATHROOM A FEW TIMES FOR LOOSE STOOL. ACCU CHECK AT HS WAS 117, NO INSULIN COVERAGE NEEDED. LUNG SOUNDS DIMINISHED PER AUSCULTATION. ABLE TO REPOSITION SELF IN BED FOR COMFORT WITHOUT ASSIST. HAS BEEN RESTING QUIETLY WITH FEW INTERRUPTIONS. CALL LIGHT IN REACH, RAILS UP X 2 AND BED IN LOW POSITION FOR SAFETY. WILL CONT TO MONITOR
[2024-07-25 05:24] VITALS: BP 111/74
[2024-07-25 05:41] LABS: BASOPHILS ABSOLUTE AUTO 0.05 K/mm3 (0.00-0.23); BASOPHILS PERCENT AUTO 1 % (0-2); EOSINOPHILS ABSOLUTE AUTO 0.26 K/mm3 (0.00-0.68); EOSINOPHILS PERCENT AUTO 4 % (0-6); Hematocrit 35.9 % (33.0-51.0); Hemoglobin 11.8 g/dL (11.5-16.0); IMMATURE GRAN ABSOLUTE AUTO 0.03 K/mm3 (0.00-0.10); IMMATURE GRAN PERCENT AUTO 1 % (0-1); LYMPHOCYTES ABSOLUTE AUTO 1.86 K/mm3 (0.84-5.20); LYMPHOCYTES PERCENT AUTO 30 % (21-46); MONOCYTES ABSOLUTE AUTO 0.65 K/mm3 (0.16-1.47); MONOCYTES PERCENT AUTO 11 % (4-13); Mean Corpuscular HGB Conc 32.9 g/dL (31.5-36.5); Mean Corpuscular Volume 91 fL (80-100); Mean Platelet Volume 9.1 fL (9.1-12.4); NEUTROPHILS ABSOLUTE AUTO 3.35 K/mm3 (1.96-9.15); NEUTROPHILS PERCENT AUTO 54 % (41-73); Platelet Count 289 K/mm3 (150-400); RDW Standard Deviation 44.3 fL (35.1-46.3); Red Blood Cell Count 3.93 M/mm3 (3.80-5.20)
[2024-07-25 06:39] LABS: Albumin, Blood 2.2 g/dL (3.4-5.0); Albumin/Globulin Ratio 0.5 (0.8-1.8); Bilirubin, Total 0.3 mg/dL (0.1-1.0); Bun/Creatinine Ratio 27.9 (12.0-20.0); Calcium, Blood 8.9 mg/dL (8.5-10.1); Creatinine, Blood 0.82 mg/dL (0.40-1.00); Globulin, Blood 4.5 g/dL (2.2-4.0); Total Protein, Blood 6.7 g/dL (6.4-8.2)
[2024-07-25 07:50] VITALS: BP 127/68
[2024-07-25] MEDS ORDERED: Cefpodoxime Pr100 MG PO (14:19)
[2024-07-25] MEDS ORDERED: NICO21TP TOP (14:19)
--- NOTE | 2024-07-25 15:29 | NUR ---
PT DISCHARGED TO HOME WITH HOSPICE. DISCHARGE INSTRUCTIONS PROVIDED AND EDUCATED ON AT TIME OF DISCHARGE. ALL VALUABLES RETURNED AND SENT HOME WITH THE PT.
== END 2024-07-25 14:39 | disposition home health service (06) | DRG 871 ==
LOC: ER 18:41 → MEDS 23:57 → ERHOLD 23:57 → MEDS 23:57 → ENPENDDIS 07-25 10:28 → MEDS 07-25 14:39
PROVIDERS: Internal Medicine; Student in an Organized Health Care Education/Training Program; ADMIT Internal Medicine
DX: A40.3 Sepsis due to Streptococcus pneumoniae (principal); A41.51 Sepsis due to Escherichia coli [E. coli]; J13 Pneumonia due to Streptococcus pneumoniae; R65.20 Severe sepsis without septic shock; E87.1 Hypo-osmolality and hyponatremia; N39.0 Urinary tract infection, site not specified; J44.0 Chronic obstructive pulmonary disease with (acute) lower respiratory infection; I74.09 Other arterial embolism and thrombosis of abdominal aorta; C78.02 Secondary malignant neoplasm of left lung; C78.01 Secondary malignant neoplasm of right lung; E87.20 Acidosis, unspecified; T82.392A Other mechanical complication of femoral arterial graft (bypass), initial encounter; M54.2 Cervicalgia; E11.42 Type 2 diabetes mellitus with diabetic polyneuropathy; E11.51 Type 2 diabetes mellitus with diabetic peripheral angiopathy without gangrene; I45.10 Unspecified right bundle-branch block; Y71.2 Prosthetic and other implants, materials and accessory cardiovascular devices associated with adverse incidents; F17.210 Nicotine dependence, cigarettes, uncomplicated; F51.04 Psychophysiologic insomnia; Z88.1 Allergy status to other antibiotic agents; Z88.0 Allergy status to penicillin; Z88.8 Allergy status to other drugs, medicaments and biological substances; Z91.041 Radiographic dye allergy status; Z92.3 Personal history of irradiation; Z92.21 Personal history of antineoplastic chemotherapy; Z95.820 Peripheral vascular angioplasty status with implants and grafts; Z79.52 Long term (current) use of systemic steroids; Z79.84 Long term (current) use of oral hypoglycemic drugs; Z79.51 Long term (current) use of inhaled steroids; Z79.02 Long term (current) use of antithrombotics/antiplatelets; Z85.89 Personal history of malignant neoplasm of other organs and systems
CPT/HCPCS: 36415; 71046; 74177; 80053; 81001; 81025; 82947; 83605; 83615; 83735; 84145; 84484; 85025; 87040; 87077; 87086; 87186; 87205; 93005; 93010; 94640; 94664; 94760; 94762; 96365; 96366; 96368; 99285-25; A9270; J0696; J3010; J3370; J3475; J7030; J7050; Q9967

== ENCOUNTER 2025-04-29 03:52 | Inpatient (IN) | payer OTHER ==
[2025-04-29] VITALS (73 sets, daily range): BP systolic 50–148; BP diastolic 29–86
[~2025-04-29] VITALS: Ht 167.6 cm; Wt 67.0 kg
[~2025-04-29 03:52] MED LIST changes: +Cefpodoxime Pr100 MG PO; +Flexeril10 MG PO; +GABA800 PO; +NICO21TP TOP; +OXYC5 PO; +TRAZ100 PO; +XARELTO2.5 M1 PO
[2025-04-29 04:26] LABS: BASOPHILS ABSOLUTE AUTO 0.03 K/mm3 (0.00-0.23); BASOPHILS PERCENT AUTO 0 % (0-2); EOSINOPHILS ABSOLUTE AUTO 0.01 K/mm3 (0.00-0.68); EOSINOPHILS PERCENT AUTO 0 % (0-6); Hematocrit 21.2 % (33.0-51.0); Hemoglobin 6.1 g/dL (11.5-16.0); IMMATURE GRAN ABSOLUTE AUTO 0.33 K/mm3 (0.00-0.10); IMMATURE GRAN PERCENT AUTO 3 % (0-1); LYMPHOCYTES ABSOLUTE AUTO 1.60 K/mm3 (0.84-5.20); LYMPHOCYTES PERCENT AUTO 12 % (21-46); MONOCYTES ABSOLUTE AUTO 0.37 K/mm3 (0.16-1.47); MONOCYTES PERCENT AUTO 3 % (4-13); Mean Corpuscular HGB Conc 28.8 g/dL (31.5-36.5); Mean Corpuscular Volume 91 fL (80-100); NEUTROPHILS ABSOLUTE AUTO 10.56 K/mm3 (1.96-9.15); NEUTROPHILS PERCENT AUTO 82 % (41-73); NRBC ABSOLUTE 0.00 K/mm3 (0.00-0.02); NRBC Auto 0.0 /100 WBC (0.0-0.2); Platelet Count 325 K/mm3 (150-400); RDW Coefficient Variation 16.5 % (11.7-14.2); RDW Standard Deviation 55.1 fL (35.1-46.3)
[2025-04-29] MEDS ORDERED: LORazepam 2 MG/ML 1ML Injection ONE ×2 (04:34→09:31)
[2025-04-29] MEDS ORDERED: LORazepam 2 MG/ML 1ML Injection IV ONE (04:35)
[2025-04-29 04:44] LABS: Alanine Aminotransfer (ALT/SGP 26.0 U/L (12-78); Albumin, Blood 1.8 g/dL (3.4-5.0); Albumin/Globulin Ratio 0.5 (0.8-1.8); Anion Gap 29.0 mmol/L (3-11); Aspartate Aminotrans (AST/SGOT 21.0 U/L (12-37); Bilirubin, Total 0.2 mg/dL (0.1-1.0); Blood Urea Nitrogen 44.0 mg/dL (8-24); CO2, Blood 12.0 mmol/L (21-32); Calcium, Blood 7.7 mg/dL (8.5-10.1); Chloride, Blood 99.0 mmol/L (98-108); Creatinine, Blood 1.47 mg/dL (0.40-1.00); Globulin, Blood 3.4 g/dL (2.2-4.0); Glucose, Blood 339.0 mg/dL (70-99); Magnesium, Blood 1.5 mg/dL (1.6-2.4); Potassium, Blood 4.8 mmol/L (3.5-5.5); Sodium, Blood 135.0 mmol/L (136-145); Total Protein, Blood 5.2 g/dL (6.4-8.2)
[2025-04-29] MEDS ORDERED: FentaNYL Citrate 50 MCG/ML 2 ML Injection IV ONE (04:50)
[2025-04-29] MEDS ORDERED: Ketamine HCL 10 MG in NS 100 ML IV ONE ×2 (05:05→05:30)
[2025-04-29] MEDS ORDERED: DiphenhydrAMINE HCl 50 MG/ML 1ML Vial ONE (05:16)
[2025-04-29] MEDS ORDERED: NS 1,000 ML IV ONE ×3 (05:58→10:05)
[2025-04-29] MEDS ORDERED: Tranexamic Acid 1000 MG/10 ML 10ML Vial (SDV) ONE (05:59)
[2025-04-29] MEDS ORDERED: CIPROFLOXACIN IV ONE (06:05)
[2025-04-29] MEDS ORDERED: Midazolam HCL 50 MG in NS 40 ML IV PRN (06:05)
[2025-04-29] MEDS ORDERED: Pantoprazole Sodium 40 MG Injection IV ONE (06:05)
[2025-04-29] MEDS ORDERED: Octreotide Acetate 500 MCG in NS 250 ML IV SCH (06:05)
[2025-04-29] MEDS ORDERED: [UNRECOGNIZED DRUG - OTHER] IV ONE (06:05)
[2025-04-29] MEDS ORDERED: HUMAN PROTHROMBIN COMPLX IV ONE (06:10)
[2025-04-29] MEDS ORDERED: WATER FOR INJECTION STERILE IV ONE (06:10)
[2025-04-29] MEDS ORDERED: Human Prothrombin Complx(Pcc) 2,000 UNIT in Water For Injection,Sterile 80 ML IV ONE (06:10)
[2025-04-29] MEDS ORDERED: Albuterol 2.5 MG/3 ML VIAL INH SCH (06:25)
[2025-04-29 06:38] LABS: Prothrombin Time Results 13.5 Sec (9.7-11.5)
[2025-04-29] MEDS ORDERED: SuccINYLCHOLINE Chloride 100 MG/5 ML 5MLSYR IV ONE (06:53)
[2025-04-29] MEDS ORDERED: Rocuronium Bromide 10 MG/ML 5ML Injection IV ONE ×2 (06:53→11:58)
[2025-04-29] MEDS ORDERED: Phenylephrine HCl 100 MCG/ML-NS 10MLSYR (1MG/10ML) IV ONE (06:53)
[2025-04-29 07:04] LABS: Hematocrit 24.2 % (33.0-51.0); Hemoglobin 7.2 g/dL (11.5-16.0)
[2025-04-29 07:04] LABS: Source, Urine Clean Catch
[2025-04-29 07:07] LABS: Bilirubin, Urine Neg (Neg); Color, Urine Yellow (P-Yellow); Glucose Qualitative, Urine 1+ (Neg); Ketones, Urine 1+ (Neg); Leukocyte Esterase, Urine 3+ (Neg); Protein, Urine 3+ (Neg); Specific Gravity, Urine 1.015 (1.003-1.022); Urobilinogen, Urine NORM (Normal)
[2025-04-29 07:18] LABS: Red Blood Cells, Urine TNTC /hpf (0-2); White Blood Cells, Urine TNTC /hpf (0-5)
[2025-04-29 07:20] LABS: U Amphetamine Screen Not Detected; U Barbiturate Screen Not Detected; U Benzodiazapine Screen Not Detected; U Buprenorphine Screen Not Detected; U Cannabinoids Screen DETECTED; U Cocaine Screen Not Detected; U Methadone Screen Not Detected; U Methamphetamine Screen Not Detected; U Opiates Screen Not Detected; U Oxycodone Screen DETECTED; U Phencyclidine Screen Not Detected
[2025-04-29] MEDS ORDERED: FLU VACC TS2025-26(6MOS UP)/PF 45 MCG/0.5 ML SYRINGE IM SCH (07:25)
[2025-04-29] MEDS ORDERED: Magnesium Sulf 2 GM/Water 50ML 50 ML IV STA (07:29)
[2025-04-29] MEDS ORDERED: EpiNEPhrine 1 MG/1 ML 1ML Vial ONE (08:33)
[2025-04-29] MEDS ORDERED: NS 500 ML IV SCH (09:00)
--- NOTE | 2025-04-29 09:22 | NUR ---
04/29/25 0922 Yaima Barajas PROCEDURE IN ICU 15; CATTLE DEALER SEDATION.
[2025-04-29] MEDS ORDERED: LORazepam 2 MG/ML 1ML Injection IV PRN (09:40)
[2025-04-29] MEDS ORDERED: Rocuronium Bromide 10 MG/ML 5ML Injection IV PRN (09:40)
[2025-04-29 10:40] LABS: pH Blood Venous 7.19 (7.34-7.37)
[2025-04-29] MEDS ORDERED: Calcium Chloride 10% 2,000 MG in NS 100 ML IV ONE (10:55)
[2025-04-29] MEDS ORDERED: Albuterol 2.5 MG/3 ML VIAL INH PRN (11:50)
[2025-04-29] MEDS ORDERED: Ipratropium/Albuterol SulF 2.5-0.5MG/3 ML Amp INH SCH (11:50)
[2025-04-29] MEDS ORDERED: Hydrogen Peroxide 1.5 % Solution MT SCH (12:00)
[2025-04-29 13:22] LABS: Hematocrit 29.7 % (33.0-51.0); Hemoglobin 9.5 g/dL (11.5-16.0)
[2025-04-29 13:43] LABS: Anion Gap 13.0 mmol/L (3-11); Blood Urea Nitrogen 47.0 mg/dL (8-24); CO2, Blood 19.0 mmol/L (21-32); Calcium, Blood 8.4 mg/dL (8.5-10.1); Chloride, Blood 110.0 mmol/L (98-108); Creatinine, Blood 0.87 mg/dL (0.40-1.00); Glucose, Blood 268.0 mg/dL (70-99); Magnesium, Blood 1.3 mg/dL (1.6-2.4); Phosphorus, Blood 4.0 mg/dL (2.5-4.9); Potassium, Blood 5.2 mmol/L (3.5-5.5); Sodium, Blood 137.0 mmol/L (136-145)
[2025-04-29] MEDS ORDERED: Magnesium Sulf 2 GM/Water 50ML 50 ML IV ONE (14:05)
[2025-04-29] MEDS ORDERED: CALCIUM GLUC IN NACL, ISO-OSM 50 ML IV ONE (15:25)
--- NOTE | 2025-04-29 16:00 | NUR ---
UPDATE TO DR. HYATT: DISCUSSED PATIENT'S STATUS THIS AFTERNOON WITH DR. HYATT INCLUDING CALCIUM, CONCERN THAT PATIENT WILL SPIKE A FEVER AND THAT DR. BURCIAGA DOES NOT WANT A GASTRIC TUBE PLACED. NEW ORDERS.
[2025-04-29] MEDS ORDERED: NS 1,000 ML IV SCH (16:35)
--- NOTE | 2025-04-29 16:45 | NUR ---
HYPOTENSION DISCUSSION WITH DR. FLOWERS: SPOKE WITH DR. FLOWERS ABOUT PATIENT'S BLOOD PRESSURES THIS AFTERNOON. CHANGES TO LEVOPHED LEVEL HAVE NOT HAD A LARGE IMPACT ON THE PATIENT'S SBP. PATIENT REMAINS IN THE HIGH 80S. IN ADDITION, PATIENT HAS A NARROW PULSE PRESSURE. LEVOPHED HAS MAINTAINED MAPS >65. AT THIS TIME, DR. FLOWERS REPORTED THAT THE FOCUS SHOULD BE ON THE PATIENT'S MAP. NEW FLUID ORDERS.
--- NOTE | 2025-04-29 16:45 | NUR ---
WOUND NOTIFICATION: NOTIFIED DR. HYATT OF PATIENT'S WOUNDS. SHE HAS A HEALING SCAB ON HER RIGHT BARNES, A HEALING SCAB ON HER LEFT ABDOMEN, A HEALING STAGE II PRESSURE INJURY ON HIS COCCYX AND A HEALING STAGE II PRESSURE INJURY ON HIS RIGHT ISCHIUM. DRESSINGS IN PLACE ON THE COCCYX AND ISCHIUM. BASIC WOUND CARE ORDERS.
[2025-04-29] MEDS ORDERED: Insulin Regular 100 UNIT/ML 10ML Vial SC SCH (18:00)
--- NOTE | 2025-04-29 19:24 | NUR ---
SHIFT SUMMARY: NEURO: NO RESPONSE TO NOXIOUS STIMULI THROUGHOUT THE SHIFT (INCLUDING NAIL BED PRESSURE, REPOSITIONING, SUCTIONING, ORAL CARE/TESTING OF GAG, AND CORNEAL REFLEX TESTING). THE ONLY EXCEPTION: AT THE END OF SHIFT, PATIENT DID COUGH WITH SUCTIONING. PAIN CONTROLLED WITH FENTANLY GTT. SEDATION CONTROLLED WITH PROPOFOL GTT AND ATIVAN PRN. RESPIRATORY: COARSE/RHONCHI LUNG SOUNDS THROUGHOUT THE SHIFT. SPO2 >90% THROUGHOUT THE SHIFT. PATIENT PREFERS THE LEFT SIDE. FIO2 TITRATED DOWN TO 80% PER RT THROUGHOUT THE SHIFT. AT THE END OF THE SHIFT, VENT SETTINGS AC/VC+ 24/380/10/80%. PATIENT REQUIRED TRANSITION TO VC+ TO BETTER MANAGE TOLERANCE OF THE VENT. CARDIAC: PATIENT REQUIRED LEVOPHED TO MAINTAIN MAPS >65. HR IN THE LOW 100S. PATIENT DEVELOPED A FEVER THIS AFTERNOON. PATIENT RECEIVED TYLENOL, FAN AND ICE PACKS. GI/: NO BOWEL MOVEMENT THIS SHIFT. DIEZ IN PLACE AND DRAINING FREELY. URINE IS A DARK YELLOW. DR. FLOWERS NOTIFIED WHEN PATIENT EXPERIENCED A DECREASE IN URINE OUTPUT THIS AFTERNOON TO ABOUT 45 ML/HR. THIS IMPROVED THE AFTERNOON PROGRESSED INTO EVENING. PSYCHSOCIAL: FAMILY AT BEDSIDE AT TIMES. THEY ARE SUPPORTIVE OF THE STAFF AND THE PATIENT. THEY OFTEN STAY IN THE ICU WAITING ROOM. THROUGHOUT THE SHIFT, TWO SISTERS WERE PRESENT: LORENZO (POA AND SISER) [phone] AND GRAY (SISTER): [phone].
[2025-04-29 19:38] LABS: Hematocrit 25.0 % (33.0-51.0); Hemoglobin 8.5 g/dL (11.5-16.0)
[2025-04-29] MEDS ORDERED: Cetylpyridinium Chloride 1 EA MISC MT SCH (20:00)
[2025-04-30] VITALS (73 sets, daily range): BP systolic 87–154; BP diastolic 55–129
[2025-04-30 02:36] LABS: Anion Gap 9.0 mmol/L (3-11); BASOPHILS ABSOLUTE AUTO 0.03 K/mm3 (0.00-0.23); BASOPHILS PERCENT AUTO 0 % (0-2); Blood Urea Nitrogen 95.0 mg/dL (8-24); CO2, Blood 21.0 mmol/L (21-32); Calcium, Blood 7.6 mg/dL (8.5-10.1); Chloride, Blood 114.0 mmol/L (98-108); Creatinine, Blood 1.21 mg/dL (0.40-1.00); EOSINOPHILS ABSOLUTE AUTO 0.00 K/mm3 (0.00-0.68); EOSINOPHILS PERCENT AUTO 0 % (0-6); Glucose, Blood 306.0 mg/dL (70-99); Hematocrit 23.5 % (33.0-51.0); Hemoglobin 7.8 g/dL (11.5-16.0); IMMATURE GRAN ABSOLUTE AUTO 0.10 K/mm3 (0.00-0.10); IMMATURE GRAN PERCENT AUTO 0 % (0-1); LYMPHOCYTES ABSOLUTE AUTO 1.03 K/mm3 (0.84-5.20); LYMPHOCYTES PERCENT AUTO 4 % (21-46); MONOCYTES ABSOLUTE AUTO 1.05 K/mm3 (0.16-1.47); MONOCYTES PERCENT AUTO 4 % (4-13); Magnesium, Blood 2.2 mg/dL (1.6-2.4); Mean Corpuscular HGB Conc 33.2 g/dL (31.5-36.5); NEUTROPHILS ABSOLUTE AUTO 22.35 K/mm3 (1.96-9.15); NEUTROPHILS PERCENT AUTO 91 % (41-73); NRBC ABSOLUTE 0.00 K/mm3 (0.00-0.02); NRBC Auto 0.0 /100 WBC (0.0-0.2); Platelet Count 188 K/mm3 (150-400); Potassium, Blood 5.4 mmol/L (3.5-5.5); RDW Coefficient Variation 16.8 % (11.7-14.2); RDW Standard Deviation 52.3 fL (35.1-46.3); Sodium, Blood 139.0 mmol/L (136-145)
[2025-04-30 02:37] LABS: Mean Corpuscular Volume 85 fL (80-100)
[2025-04-30 04:02] LABS: pH Blood Venous 7.27 (7.34-7.37)
--- NOTE | 2025-04-30 05:09 | NUR ---
SHIFT SUMMARY PT HAS TOLERATED NIGHT WELL WITH NO SIGNIFICANT EVENTS OR CHANGES IN STATUS. PT REMAINS INTUBATED, ON SEDATION AND PRESSORS. PT RESPONDS TO PAINFUL STIMULI AND HAS A COUGH REFLEX. PT OTHERWISE DOES NOT FOLLOW COMMANDS AT THIS TIME. NO BM THROUGHOUT NIGHT. PT WAS ABLE TO BE WEENED OFF OF SOME SEDATION BUT NEEDED MORE WHILE NOT TOLERATING VENT SETTINGS OR CHANGES. PT CURRENTLY RESTING IN ROOM. WILL CONTINUE TO MONITOR UNTIL REPORT PASSED TO DAY SHIFT TEAM.
[2025-04-30 06:01] LABS: Hematocrit 22.9 % (33.0-51.0); Hemoglobin 7.7 g/dL (11.5-16.0); Mean Corpuscular HGB Conc 33.6 g/dL (31.5-36.5); Mean Corpuscular Volume 84 fL (80-100); NRBC ABSOLUTE 0.00 K/mm3 (0.00-0.02); NRBC Auto 0.0 /100 WBC (0.0-0.2); Platelet Count 191 K/mm3 (150-400); RDW Coefficient Variation 16.9 % (11.7-14.2); RDW Standard Deviation 52.2 fL (35.1-46.3)
[2025-04-30 06:20] LABS: BAND PERCENT MAN 17 % (0-8); BASOPHILS ABSOLUTE MAN 0.00 K/mm3 (0.00-0.23); BASOPHILS PERCENT MAN 0 % (0-2); EOSINOPHILS ABSOLUTE MAN 0.00 K/mm3 (0.00-0.68); EOSINOPHILS PERCENT MAN 0 % (0-6); LYMPHOCYTES ABSOLUTE MAN 1.07 K/mm3 (0.84-5.20); LYMPHOCYTES PERCENT MAN 4 % (21-46); METAMYELOCYTE ABSOLUTE MAN 0.26 K/mm3 (0.00-0.00); METAMYELOCYTE PERCENT MAN 1 % (0-0); MONOCYTES ABSOLUTE MAN 0.53 K/mm3 (0.16-1.47); MONOCYTES PERCENT MAN 2 % (4-13); NEUTROPHILS ABSOLUTE MAN 24.97 K/mm3 (1.96-9.15); SEG NEUTROPHILS PERCENT MAN 76 % (41-73)
--- NOTE | 2025-04-30 07:11 | NUR ---
ASSUMPTION OF CARE: PATIENT RESTING QUIETLY IN BED. PATIENT TOLERATING THE VENT. VENT SETTINGS AC/PC 18/10//60%. SPO2 98%. LEVOPHED CONTINUES TO INFUSE TO MAINTAIN MAPS >65. CURRENTLY AT 4 MCG/MIN. PROPOFOL AT 40 MCG/KG/MIN AND FENTANYL AT 100 MCG/HR. PATIENT APPEARS COMFORTABLE. NS INFUSING CONTINUES AT 100 ML/HR. OCTREOTIDE GTT AND PROTONIX GTT INFUSING. DIEZ IN PLACE AND DRAINING FREELY.
--- NOTE | 2025-04-30 11:03 | NUR ---
SEDATION INTERRUPTION: SEDATION INTERRUPTION STARTED AT 1035. PATIENT CONTINUES TO TOLERATE THE VENT. RR IN THE 20S. PATIENT CONTINUES TO STACK ABOUT EVERY 5-10 BREATHS. PATIENT MAINTAINING MINUTE VENTILATIONS. NO DISTRESS OR DISCOMFORT NOTED. VENT SETTINGS CONTINUE TO BE AC/PC 5/10; RR 18 AND NOW FIO2 40%. SPO2 AT 96% AT THE TIME OF THIS NOTE. HR CONTINUES TO BE IN THE 10OS-110S. BLOOD PRESSURES STABLE WITH MAPS >65.
[2025-04-30] MEDS ORDERED: FentaNYL Citrate 50 MCG/ML 2 ML Injection IV PRN (15:00)
[2025-04-30] MEDS ORDERED: Sertraline HCl50 MG PO (16:27)
[2025-04-30] MEDS ORDERED: ZYRTEC10 M2 PO (16:28)
[2025-04-30] MEDS ORDERED: ACET500 PO (16:30)
[2025-04-30] MEDS ORDERED: Pantoprazole Sodium 40 MG Injection IV SCH (16:30)
[2025-04-30] MEDS ORDERED: MIRTAZAPINE7.5 M1 PO (16:32)
[2025-04-30] MEDS ORDERED: Metoclopramide HCl 5MG / ML 2ML Vial IV ONE (17:30)
--- NOTE | 2025-04-30 18:53 | NUR ---
SHIFT SUMMARY: NEURO: PATIENT HAD INCREASED MOVEMENT TODAY IN HER UPPER BODY. PATIENT WITHDRAWING ARMS FROM PAINFUL STIMULI. WHEN IN PAIN OR DISCOMFORT, PATIENT LIFTING HER UPPER BODY OFF OF THE BED. NO PURPOSEFUL OR DIRECTION FOLLOWING NOTED THROUGHOUT THE SHIFT. PATIENT TOLERATED A SEDATION INTERRUPTION FOR ABOUT 1.5 HOURS TODAY. PROPOFOL TITRATED DOWN TO 20 MCG/KG/MIN. FENTANYL GTT STOPPED THIS AFTERNOON AND PATIENT TRANSITIONED TO PRN FENTANYL. RESPIRATORY: PATIENT TOLERATED AC/PC TODAY. BY THE END OF THE SHIFT SETTINGS 5/10; RR 18; FIO2 40%. SPO2 >92%. CONTINUES TO HAVE DARK SECRETIONS FROM THE ETT. CARDIAC: LEVOPHED GTT CONTINUES TO MAINTAIN MAPS >65. CONTINUES TO BE TACHY WITH HR IN THE 100S-110S. GI/: IMPROVED URINE OUTPUT IN VOLUME AND COLOR. HYPOACTIVE BOWEL TONES. NO BOWEL MOVEMENT THIS SHIFT. PSYCHSOCIAL: FAMILY AT BEDSIDE THROUGHOUT THE SHIFT. THEY ARE HELPFUL AND APPRECIATIVE OF THE CARE. FAMILY REPORTED THAT IT WAS VERY IMPORTANT FOR THE PATIENT TO MEET HER GRANDDAUGHTER (6 MONTH OLD). PER THE REPORT, HER SON AND GRANDDAUGHTER WILL BE COMING IN FRIDAY.
[2025-05-01] VITALS (104 sets, daily range): BP systolic 84–159; BP diastolic 44–101
[2025-05-01 03:51] LABS: Hematocrit 18.5 % (33.0-51.0); Hemoglobin 6.2 g/dL (11.5-16.0); Mean Corpuscular HGB Conc 33.5 g/dL (31.5-36.5); Mean Corpuscular Volume 86 fL (80-100); NRBC ABSOLUTE 0.02 K/mm3 (0.00-0.02); NRBC Auto 0.1 /100 WBC (0.0-0.2); Platelet Count 189 K/mm3 (150-400); RDW Coefficient Variation 17.4 % (11.7-14.2); RDW Standard Deviation 53.8 fL (35.1-46.3)
[2025-05-01 04:11] LABS: Alanine Aminotransfer (ALT/SGP 24.0 U/L (12-78); Albumin, Blood 1.5 g/dL (3.4-5.0); Albumin/Globulin Ratio 0.4 (0.8-1.8); Anion Gap 8.0 mmol/L (3-11); Aspartate Aminotrans (AST/SGOT 44.0 U/L (12-37); Bilirubin, Total 0.6 mg/dL (0.1-1.0); Blood Urea Nitrogen 68.0 mg/dL (8-24); CO2, Blood 21.0 mmol/L (21-32); Calcium, Blood 7.6 mg/dL (8.5-10.1); Chloride, Blood 121.0 mmol/L (98-108); Creatinine, Blood 0.75 mg/dL (0.40-1.00); Globulin, Blood 3.4 g/dL (2.2-4.0); Glucose, Blood 185.0 mg/dL (70-99); Magnesium, Blood 1.6 mg/dL (1.6-2.4); Phosphorus, Blood 2.2 mg/dL (2.5-4.9); Potassium, Blood 3.6 mmol/L (3.5-5.5); Sodium, Blood 146.0 mmol/L (136-145); Total Protein, Blood 4.9 g/dL (6.4-8.2)
[2025-05-01 04:18] LABS: pH Blood Venous 7.31 (7.34-7.37)
[2025-05-01 05:29] LABS: BAND PERCENT MAN 22 % (0-8); BASOPHILS ABSOLUTE MAN 0.00 K/mm3 (0.00-0.23); BASOPHILS PERCENT MAN 0 % (0-2); EOSINOPHILS ABSOLUTE MAN 0.00 K/mm3 (0.00-0.68); EOSINOPHILS PERCENT MAN 0 % (0-6); LYMPHOCYTES ABSOLUTE MAN 0.71 K/mm3 (0.84-5.20); LYMPHOCYTES PERCENT MAN 3 % (21-46); MONOCYTES ABSOLUTE MAN 0.71 K/mm3 (0.16-1.47); MONOCYTES PERCENT MAN 3 % (4-13); NEUTROPHILS ABSOLUTE MAN 22.47 K/mm3 (1.96-9.15); SEG NEUTROPHILS PERCENT MAN 72 % (41-73)
--- NOTE | 2025-05-01 05:58 | NUR ---
SHIFT SUMMARY PATIENT INTUBATED AND SEDATED. ET TUBE 8.0 @25 AT TEETH. VENT SETTINGS AC/PC 18/10/5/40%. PATIENT HAS HAD A TEMP OF HIGHEST 100.9 AND NOW OF 100.4. PATIENT HAD ICED PLACED IN BILATERAL AXILLA AND ZOE AREA. COLD CLOTH PLACED ON FOREHEAD TO HELP REDUCED TEMP. HEART RATE SINUS TACH 100-110'S AND SBP 110-120'S. PATIENT HAS BEEN RECEIVING PAIN MEDS PER EMAR DUE TO RESTLESSNESS AND PULLING AGAINST RESTRAINTS. PATIENT HAS BILATERAL SOFT WRIST RESTRAINTS. PATIENT HAS DIEZ DRAINING TO GRAVITY, CLEAR YELLOW IN COLOR. PATIENT HAS PICC LINE IN RIGHT UPPER ARM AND RIGHT UPPER ARM PERIPHERAL IV. LEVOPHED INFUSING @ 2MCG/MIN, PROPOFOL INFUSING @40MCG/KG/MIN, AND NS INFUSING @100MLS/HR. BLOOD TRANSFUSION INFUSING @100MLS/HR DUE TO HEMOGLOBIN OF 6.[address] CADRENAS. PATIENT DOES NOT FOLLOW COMMANDS OR OPEN EYES TO NAME AT THIS TIME. CALL LIGHT WITHIN REACH.
[2025-05-01 09:40] LABS: Hematocrit 21.8 % (33.0-51.0); Hemoglobin 7.1 g/dL (11.5-16.0)
[2025-05-01] MEDS ORDERED: Potassium Phosphate Dibasic 20 MM in Dextrose 5% 500 ML IV STA (10:14)
--- NOTE | 2025-05-01 11:30 | NUR ---
AM NOTE: THIS RN ASSUMED CARE OF PT AT APPROX 0700, BEDSIDE REPORT FROM VIK JUDD. PT INTUBATED & SEDATED W/ PROPOFOL GTT @40 MCG/KG/MIN AT START OF SHIFT. RASS-5. SEDATION VACATION INITIATED AT APPROX [address] FLOWERS. PT REMAINS OFF ALL SEDATION W/ RASS REMAINING -5. GRIMACE TO PAINFUL STIMULI, NO MEANINGFUL RESPONSE OBSERVED. COUGH PRESENT, GAG ABSENT. UNALE TO FOLLOW ANY COMMANDS. LEVOPHED TITRATED OFF AT START OF SHIFT W/ MAP MAINTAINING >65. HR 80-100'S, SINUS RHYTHM ON MONITOR. SPO2 >90% ON VENT, SETTINGS SPO 10/10 35%. ETT ADVANCED PER DR. FLOWERS TODAY. CORE TMAX 101.0, ICE PACKS & FAN IN PLACE. DIEZ CATH PATENT & DRAINING CLEAR YELLOW URINE TO GRAVITY. NO BM'S THIS AM, PLANS TO INITIATE CPN TODAY. FAMILY AT BEDSIDE, REPORT PT HAS BEEN VERY EXCITED TO MEET HER GRANDSON - HE WILL BE IN TOWN 05/02 & IS HOPING TO VISIT ON 05/03. Q2HR REPOSITIONING, Q4HR ORAL CARE TO SUCTION.
[2025-05-01] MEDS ORDERED: Metoclopramide HCl 5MG / ML 2ML Vial IV ONE (11:45)
[2025-05-01] MEDS ORDERED: TPN Consult Notification XX ONE (13:20)
[2025-05-01 14:36] LABS: Hematocrit 20.7 % (33.0-51.0); Hemoglobin 6.9 g/dL (11.5-16.0)
--- NOTE | 2025-05-01 14:49 | NUR ---
SEDATION REINITIATED: PT ABLE TO TOLERATE SEDATION VACATION FOR APPROX 4HRS ON SPONTANEOUS 10 35%. RR UP TO 40'S, PT ATTEMPTING TO SIT UP IN BED & BECOMING AGITATED. PT TRANSITIONED BACK TO AC/PC & PROPOFOL REINITIATED PER EMAR.
[2025-05-01] MEDS ORDERED: Parenteral Electolytes 40 ML,Potassium Phosphate Dibasic 30 MM,Multivitamins 10 ML,ZINC... IV SCH (17:00)
--- NOTE | 2025-05-01 18:10 | NUR ---
END OF SHIFT NOTE: PT REMAINS INTUBATED & SEDATED W/ PROPOFOL @55 MCG/KG/MIN. RASS-3. PRN ATIVAN & FENTANYL FOR VENT COMPLIANCE PER EMAR. NEURO REMAINS UNCHANGED, UNABLE TO FOLLOW ANY COMMANDS OR ENGAGE MEANINGFULLY. HR 80-100'S, SINUS RHYTHM ON MONITOR. BP STABLE, MAP >65 W/ LEVO GTT ON STANDBY. SPO2 >90% ON VENT, SETTINGS AC/PC RR 18, PEEP 10, FIO2 40%. COPIOUS SECRETIONS VIA ETT & ORALLY. CORE TEMP THIS EVENING 100.1; TMAX 101.0. DIEZ PATENT & DRAINING YELLOW URINE TO GRAVITY, 1925ML OUTPUT THIS SHIFT. 1 MEDIUM BM, BLACK/LOOSE. CPN INITIATED THIS EVENING PER ORDERS. LR INFUSING AT 100 ML/HR. FAMILY AT BEDSIDE T/O THE DAY, UPDATED ON PLAN OF CARE.
[2025-05-01 20:04] LABS: Hematocrit 18.7 % (33.0-51.0); Hemoglobin 6.8 g/dL (11.5-16.0)
[2025-05-02] VITALS (85 sets, daily range): BP systolic 80–168; BP diastolic 48–90
--- NOTE | 2025-05-02 01:03 | NUR ---
UPDATE DOING ORAL CARE ON PATIENT AND NOTICED LEFT FRONT TOOTH IS BLACK IN COLOR AND LOOSE. CHARGE NURSE AWARE
[2025-05-02 02:48] LABS: BASOPHILS ABSOLUTE AUTO 0.03 K/mm3 (0.00-0.23); BASOPHILS PERCENT AUTO 0 % (0-2); EOSINOPHILS ABSOLUTE AUTO 0.04 K/mm3 (0.00-0.68); EOSINOPHILS PERCENT AUTO 0 % (0-6); Hematocrit 24.2 % (33.0-51.0); Hemoglobin 8.2 g/dL (11.5-16.0); IMMATURE GRAN ABSOLUTE AUTO 0.18 K/mm3 (0.00-0.10); IMMATURE GRAN PERCENT AUTO 1 % (0-1); LYMPHOCYTES ABSOLUTE AUTO 0.93 K/mm3 (0.84-5.20); LYMPHOCYTES PERCENT AUTO 6 % (21-46); MONOCYTES ABSOLUTE AUTO 0.79 K/mm3 (0.16-1.47); MONOCYTES PERCENT AUTO 5 % (4-13); Mean Corpuscular HGB Conc 33.9 g/dL (31.5-36.5); Mean Corpuscular Volume 86 fL (80-100); NEUTROPHILS ABSOLUTE AUTO 14.98 K/mm3 (1.96-9.15); NEUTROPHILS PERCENT AUTO 88 % (41-73); NRBC ABSOLUTE 0.10 K/mm3 (0.00-0.02); NRBC Auto 0.6 /100 WBC (0.0-0.2); Platelet Count 153 K/mm3 (150-400); RDW Coefficient Variation 16.3 % (11.7-14.2); RDW Standard Deviation 50.7 fL (35.1-46.3)
[2025-05-02 03:03] LABS: Anion Gap 10.0 mmol/L (3-11); Blood Urea Nitrogen 39.0 mg/dL (8-24); CO2, Blood 22.0 mmol/L (21-32); Calcium, Blood 7.5 mg/dL (8.5-10.1); Chloride, Blood 118.0 mmol/L (98-108); Creatinine, Blood 0.55 mg/dL (0.40-1.00); Glucose, Blood 249.0 mg/dL (70-99); Magnesium, Blood 1.4 mg/dL (1.6-2.4); Phosphorus, Blood 1.9 mg/dL (2.5-4.9); Potassium, Blood 3.1 mmol/L (3.5-5.5); Sodium, Blood 147.0 mmol/L (136-145)
[2025-05-02] MEDS ORDERED: Magnesium Sulf 2 GM/Water 50ML 50 ML IV ONE (03:20)
[2025-05-02] MEDS ORDERED: Potassium Phosphate Dibasic 30 MM in Dextrose 5% 500 ML IV ONE (03:20)
--- NOTE | 2025-05-02 05:49 | NUR ---
SHIFT SUMMARY PATIENT INTUBATED AND SEDATED. FEBRILE HIGHEST 101.0, PACKED PATIENT WITH ICE PACKS IN AXILA'S AND ZOE AREA, TEMP AT END OF SHIFT 100.1. HR 80-90'S AND SBP 110-130'S. INTUBATED WITH 8.0 ET TUBE @27CM @GUMS. FRONT LEFT TOOTH LOOSE. VENT SETTINGS AC/PC 19/03//35%. PATIENT HAS DIEZ DRAINING TO GRAVITY CLEAR YELLOW COLOR. HAS PICC LINE IN RIGHT UPPER ARM WITH CPN, 1/2NS, AND POTASSIUM PHOS INFUSING. PERIPHERAL LEFT UPPER IV WITH PROPOFOL INFUSING @ 55MCG/KG/MIN. PATIENT HAD 1 UNIT OF PRBC TRANSFUSED @202005/01/25 DUE TO HEMOGLOBIN OF 6.8 (REDRAW HEMOGLOBIN 8.2 @0300 05/02/25) MED AWARE. CALL LIGHT WITHIN REACH
[2025-05-02] MEDS ORDERED: Magnesium Sul 4 GM/Water100 ML 100 ML IV ONE (07:15)
[2025-05-02 08:01] LABS: BASOPHILS ABSOLUTE AUTO 0.04 K/mm3 (0.00-0.23); BASOPHILS PERCENT AUTO 0 % (0-2); EOSINOPHILS ABSOLUTE AUTO 0.08 K/mm3 (0.00-0.68); EOSINOPHILS PERCENT AUTO 0 % (0-6); Hematocrit 24.7 % (33.0-51.0); Hemoglobin 8.3 g/dL (11.5-16.0); IMMATURE GRAN ABSOLUTE AUTO 0.28 K/mm3 (0.00-0.10); IMMATURE GRAN PERCENT AUTO 2 % (0-1); LYMPHOCYTES ABSOLUTE AUTO 1.14 K/mm3 (0.84-5.20); LYMPHOCYTES PERCENT AUTO 6 % (21-46); MONOCYTES ABSOLUTE AUTO 0.91 K/mm3 (0.16-1.47); MONOCYTES PERCENT AUTO 5 % (4-13); Mean Corpuscular HGB Conc 33.6 g/dL (31.5-36.5); Mean Corpuscular Volume 86 fL (80-100); NEUTROPHILS ABSOLUTE AUTO 16.16 K/mm3 (1.96-9.15); NEUTROPHILS PERCENT AUTO 87 % (41-73); NRBC ABSOLUTE 0.12 K/mm3 (0.00-0.02); NRBC Auto 0.6 /100 WBC (0.0-0.2); Platelet Count 153 K/mm3 (150-400); RDW Coefficient Variation 16.5 % (11.7-14.2); RDW Standard Deviation 51.1 fL (35.1-46.3)
[2025-05-02 08:37] LABS: Alanine Aminotransfer (ALT/SGP 27.0 U/L (12-78); Albumin, Blood 1.6 g/dL (3.4-5.0); Albumin/Globulin Ratio 0.4 (0.8-1.8); Anion Gap 9.0 mmol/L (3-11); Aspartate Aminotrans (AST/SGOT 49.0 U/L (12-37); Bilirubin, Total 0.2 mg/dL (0.1-1.0); Blood Urea Nitrogen 33.0 mg/dL (8-24); CO2, Blood 22.0 mmol/L (21-32); Calcium, Blood 7.4 mg/dL (8.5-10.1); Chloride, Blood 115.0 mmol/L (98-108); Creatinine, Blood 0.55 mg/dL (0.40-1.00); Globulin, Blood 3.7 g/dL (2.2-4.0); Glucose, Blood 264.0 mg/dL (70-99); Potassium, Blood 3.6 mmol/L (3.5-5.5); Sodium, Blood 142.0 mmol/L (136-145); Total Protein, Blood 5.3 g/dL (6.4-8.2)
[2025-05-02] MEDS ORDERED: TPN Consult Notification XX ONE (10:40)
[2025-05-02 11:14] LABS: Triglycerides 152 mg/dL (30-160)
--- NOTE | 2025-05-02 11:25 | NUR ---
AM NOTE: THIS RN ASSUMED CARE OF PT AT APPROX 0700, BEDSIDE REPORT FROM VIK JUDD. PT INTUBATED & SEDATED W/ PROPOFOL @55 MCG/KG/MIN, FENTANYL ADDED SEDATION ADJUNCT - INFUSING @50 MCG/HR. PT UNRESPONSIVE, UNABLE TO FOLLOW COMMANDS. WITHDRAWS TO PAINFUL STIMULI, NO MEANINGFUL MOVEMENT OBSERVED. VSS. HR 80-100'S, SINUS RHYTHM ON MONITOR. BP STABLE, MAP >65. SPO2 >90% ON VENT; SETTINGS AC/PC 18/12/10/35%. LARGE AMOUNT OF YELLOW/GREEN THICK ETT SECRETIONS. TMAX 101.0, ICE PACKS & FAN IN PLACE. DIEZ CATH IN PLACE, PATENT & DRAINING YELLOW URINE TO GRAVITY. CPN INFUSING PER GLUING MACHINE OPERATOR ELECTRONIC. PLANS FOR REPEAT EGD TODAY.
[2025-05-02] MEDS ORDERED: EpiNEPhrine 1 MG/1 ML 1ML Vial ONE (12:12)
[2025-05-02] MEDS ORDERED: Ethanolamine Oleate 50MG/ML 2ML Amp ONE (12:14)
--- NOTE | 2025-05-02 13:04 | NUR ---
05/02/25 1304 Yaima Barajas PT INTUBATED & SEDATED; CASE COMPLETED IN ICU 15.
--- NOTE | 2025-05-02 14:46 | NUR ---
REPEAT EGD: REPEAT EGD COMPLETED THIS AFTERNOON AT APPROX [address] BURCIAGA. PT REMAINS INTUBATED & SEDATED W/ PROPOFOL GTT & FENTANYL GTT. VSS T/O PROCEDURE. SISTER ALFONSO PROVIDED W/ UPDATE BY THIS RN.
--- NOTE | 2025-05-02 15:00 | NUR ---
PALLIATIVE CARE CONFERENCE: [facility]. SISTER/MIKE VENTURA PRESENT. DR. EL PRESENT FOR PART OF MEETING. DR. EL EDUCATED FAMILY ON CURRENT EGD FINDINGS AND PROGNOSIS. DISCUSSED GOC. FAMILY/LORENZO WANT TO HONOR ABBEY'S WISH TO MEET HER GRANDDAUGHTER. THEY ARE CURRENTLY ON AIRPLANE FLYING HERE SO SHE CAN MEET HER. THEY ARE EXPECTED TO ARRIVE TO [facility] AT 8 PM. LORENZO VERBALLY STATED SHE WOULD LIKE SEDATION TO BE TURNED DOWN MUCH POSSIBLE WITHOUT CAUSING AGITATION SO HER SISTER CAN HOPEFULLY HEAR HER GRANDDAUGHTER'S PRESENCE. LORENZO STATES "I AM FULLY AWARE MY SISTER WILL LIKELY NOT MAKE IT OUT OF HERE ALIVE OR COME OFF THE VENTILATOR". DISCUSSED CODE STATUS WITH LORENZO. SHE STATED HER SISTER WAS ON [facility] UP UNTIL SEPTEMBER OF THIS YEAR AND THEY DISCHARGED DUE TO PT NOT HAVING ANY DECLINE IN HEALTH. LORENZO RE-ADDRESSED POLST WITH HER SISTER AT THAT TIME AND SINCE PT FOUND OUT SHE HAD A GRANDDAUGHTER, TOLD HER TO HAVE EVERYTHING DONE INCLUDING CPR/INTUBATION SO SHE CAN MEET HER GRANDBABY. LORENZO WANTS TO HONOR HER SISTERS REQUEST AND KEEP CODE STATUS FULL CODE UNTIL SHE MEETS HER. FAMILY WERE TEARFUL WITH DISCUSSION. WE PROVIDED EMPATHETIC LISTENING AND MORAL SUPPORT. PROVIDED EDUCATION ON HOW TO ACCOMPLISH VISIT WITH GRANDDAUGHTER. UPDATED PRIMARY RN ON POC. UPDATED CM ON PLAN.
[2025-05-02] MEDS ORDERED: Parenteral Electolytes 40 ML,Potassium Phosphate Dibasic 30 MM,Multivitamins 10 ML,ZINC... IV SCH (17:00)
[2025-05-02] MEDS ORDERED: Metoclopramide HCl 5MG / ML 2ML Vial IV SCH (17:00)
--- NOTE | 2025-05-02 18:42 | NUR ---
END OF SHIFT NOTE: PT REMAINS INTUBATED & SEDATED W/ PROPOFOL @55 MCG/KG/MIN & FENTANYL @50 MCG/HR. NEURO REMAINS UNCHANGED, UNABLE TO FOLLOW ANY COMMANDS OR ENGAGE MEANINGFULLY. HR 80-90'S, SINUS RHYTHM ON MONITOR. BP STABLE, MAP >65. SPO2 >90% ON VENT, SETTINGS AC/PC RR 18, PEEP 10, FIO2 40%. COPIOUS SECRETIONS VIA ETT & ORALLY. CORE TEMP THIS EVENING 100.2; TMAX 101.0. DIEZ PATENT & DRAINING YELLOW URINE TO GRAVITY. NO BM'S. CPN INFUSING PER ORDERS. FAMILY AT BEDSIDE T/O THE SHIFT, ABLE TO MEET W/ PALLIATIVE CARE RN THIS AFTERNOON. FAMILY W/ GRANDCHILD FLYING IN THIS EVENING. PT'S SISTER REPORTS THAT PT'S "DYING WISH" WAS TO MEET HER GRANDBABY. CARE CONTINUES.
[2025-05-02] MEDS ORDERED: Petrolatum/Mineral Oil/Lanolin 1 APPLIC/50 GM Tube TOP PRN (19:15)
--- NOTE | 2025-05-02 21:42 | NUR ---
ASSUMPTION OF CARE: ASSUMED CARE OF PT AT 1900 PT REMAINS INTUBATED AND SEDATED AND UNABLE TO ASSESS NEURO AT THIS TIME DO TO SEDATION PER PROVIDER AND KEEPING PT AT A RASS SCORE GOAL OF -3/-4 TO PREVENT PT SELF EXTUBATION AND PROTECT AIRWAY. PT HAS SOME SOFT BP'S AT BEG OF SHIFT WITH MAPS 60-65 AND LEVO AT STANDBY IF NEEDED. SEE FLOWSHEET FOR TITRATIONS FOR FENTANYL AND PROPOFOL. PT HAS PATENT PIV TO SHAHRIAR AND PICC TO RAJENDRA. PATENT DIEZ DRAINING TO GRAVITY. CPN INFUSING AT 73ML/HR. SBP'S 80-90'S HR IN 80'S. SP02 >96% (SEE RESP ASSESSMENT FOR VENT SETTINGS).ORAL CARE DONE AND AQUAPHOR APPLIED TO CRACKED LIPS AND MOUTH. BED LOW AND LOCKED FOR SAFETY.
[2025-05-03] VITALS (97 sets, daily range): BP systolic 59–147; BP diastolic 38–87
[2025-05-03 03:14] LABS: BASOPHILS ABSOLUTE AUTO 0.04 K/mm3 (0.00-0.23); BASOPHILS PERCENT AUTO 0 % (0-2); EOSINOPHILS ABSOLUTE AUTO 0.21 K/mm3 (0.00-0.68); EOSINOPHILS PERCENT AUTO 1 % (0-6); Hematocrit 23.8 % (33.0-51.0); Hemoglobin 7.9 g/dL (11.5-16.0); IMMATURE GRAN ABSOLUTE AUTO 0.41 K/mm3 (0.00-0.10); IMMATURE GRAN PERCENT AUTO 3 % (0-1); LYMPHOCYTES ABSOLUTE AUTO 1.16 K/mm3 (0.84-5.20); LYMPHOCYTES PERCENT AUTO 7 % (21-46); MONOCYTES ABSOLUTE AUTO 1.30 K/mm3 (0.16-1.47); MONOCYTES PERCENT AUTO 8 % (4-13); Mean Corpuscular HGB Conc 33.2 g/dL (31.5-36.5); Mean Corpuscular Volume 86 fL (80-100); NEUTROPHILS ABSOLUTE AUTO 13.28 K/mm3 (1.96-9.15); NEUTROPHILS PERCENT AUTO 81 % (41-73); NRBC ABSOLUTE 0.10 K/mm3 (0.00-0.02); NRBC Auto 0.6 /100 WBC (0.0-0.2); Platelet Count 150 K/mm3 (150-400); RDW Coefficient Variation 16.9 % (11.7-14.2); RDW Standard Deviation 52.6 fL (35.1-46.3)
[2025-05-03 03:34] LABS: Anion Gap 8.0 mmol/L (3-11); Blood Urea Nitrogen 33.0 mg/dL (8-24); CO2, Blood 24.0 mmol/L (21-32); Calcium, Blood 7.6 mg/dL (8.5-10.1); Chloride, Blood 112.0 mmol/L (98-108); Creatinine, Blood 0.57 mg/dL (0.40-1.00); Glucose, Blood 210.0 mg/dL (70-99); Magnesium, Blood 1.5 mg/dL (1.6-2.4); Phosphorus, Blood 2.5 mg/dL (2.5-4.9); Potassium, Blood 3.7 mmol/L (3.5-5.5); Sodium, Blood 140.0 mmol/L (136-145)
[2025-05-03] MEDS ORDERED: Magnesium Sulf 2 GM/Water 50ML 50 ML IV ONE (03:55)
--- NOTE | 2025-05-03 06:07 | NUR ---
SHIFT SUMM: PT REMAINS INTUBATED AND SEDATED ON 50MCG/KG/MIN OF PROPOFOL AND FENTANYL INFUSING AT 50MCG/HR (SEE FLOWSHEET). CPN INFUSING AT 73ML/HR. DIEZ REMAINS PATENT. PIV AND PICC REMAIN PATENT. NO FEVER THIS SHIFT. SOME ATIVAN GIVEN FOR AGITATION AND TO PREVENT EXTUBATION DURING BED BATH. LEVOPHED STARTED THIS SHIFT AND NOW ON STANDBY DUE TO SOFT BP'S, SBP'S 80'S-130'S AND HR IN 80'S. SPO2 >96% (SEE RESP ASSESSMENT FOR SETTINGS). Q6 BS CHECKS. BED BATH COMPLETE WITH CATH CARE WIPES AND CHG BATH. BED LOW AND LOCKED FOR SAFETY.
--- NOTE | 2025-05-03 07:22 | NUR ---
ASSUMPTION OF CARE RECEIVED BEDSIDE REPORT FROM MUNA RN. PT INTUBATED/SEDATED. PROPOFOL/FENTANYL INFUSING PER FLOWSHEET. RASS -4. SEE RT NOTES FOR VENT SETTINGS. BITE BLOCK IN PLACE TO R SIDE OF MOUTH. MAP >65, HR 90s. PICC TO RAJENDRA c CPN PER EMAR. DIEZ DRAINING YELLOW URINE. MUNA RN REPORTS NO BM OVERNIGHT. Q2 TURNS, DRESSINGS TO BUTTOCKS INTACT.
--- NOTE | 2025-05-03 16:34 | NUR ---
"Spiritual Care | Family Support Attempted Family members for the Pt. are gathered in the ICU waiting room. Facilitate an introduction and welcome. Listen with interest and empathy. One family member verbalized that the Pt. is . This director of intelligence encouraged the family that we can give spiritual care support should to the family should they request it. Family displays evidence of not being certain or realistic about the Pts. condition. Family member are not holding kim at Pts. bedside. Family verbalized gratitude for the spiritual care attempt. WIll remain available to the Pt. and family."
[2025-05-03 16:36] LABS: pH Blood Venous 7.43 (7.34-7.37)
--- NOTE | 2025-05-03 18:20 | NUR ---
PALLIATIVE CARE VISIT: MET MULTIPLE TIMES WITH FAMILY TO PROVIDE SUPPORT. SEVERAL FAMILY MEMBERS HERE THROUGHOUT THE DAY. DISCUSSED CONCERNS WITH FAMILY. DISCUSSED CODE STATUS AND EDUCATED THEM ON CPR VS DNR MEASURES. EDUCATED ON INTUBATION AND COMPLICATIONS RESULTING WITH INTUBATION. MIKE VENTURA SPOKE TO FAMILY. SHE WANTS TO WAIT UNTIL TOMORROW TO MAKE DECISION ABOUT CODE STATUS. THEY WERE ABLE TO BRING PT GRANDBABY IN TO SEE PT WHICH WAS PT "DYING WISH". UPDATED PRIMARY RN ON FAMILY GOC.
--- NOTE | 2025-05-03 18:25 | NUR ---
SHIFT SUMMARY PT INTUBATED/SEDATED c PROPOFOL/FENTANYL PER ICE FLOWSHEET. NEURO STATUS UNCHANGED. PT MINIMALLY WITHDRALWS FROM PAINFUL STIMULI, DOES NOT FOLLOW COMMANDS. SPO2 >9% ON VENT, SETTINGS AC/PC 18/10/35%. COPIOUS THICK SECRETIONS VIA ORAL SUCTION & ET TUBE. HR 70-100s. LEVO INFUSING @ 3 MCG/MIN TO MAINTAIN MAP >65. PT RESPIRATIONS INCREASE TO 50-60s, HR TACHYCARDIC, ETCO2 DECREASE TO APPOX 11 c TURNS. T MAX 100.3 VIA DIEZ PROBE. DIEZ DRAINING YELLOW URINE TO GRAVITY. NO BM THIS SHIFT. CPN/ABX INFUSING PER EMAR. Q2 TURNS. WOUND DRESSINGS REMAIN UNCHANGED. FAMILY AT BEDSIDE INTERMITTENTLY THROUGHOUT SHIFT. PALLIATIVE CARE DISCUSS CODE STATUS c FAMILY, FAMILY UNABLE TO FINALIZE DECISIONS REGARDING CARE AT THIS TIME. PT ABLE TO MEET GRANDBABY TODAY. REPORT TO BE GIVEN TO MUNA JUDD.
--- NOTE | 2025-05-03 20:47 | NUR ---
ASSUMPTION OF CARE ASSUMED CARE OF PT APPROX 1900. PT REMAINS INTUBATED AND SEDATED, PROPOFOL AT 50 MCG, FENTANYL AT 50 MCG AND LEVO AT 2 MCG AND CPN INFUSING AT 73 ML VIA PICC LINE IN RAJENDRA. VENT SETTINGS A/C PC 18/10.0/35% FI02. PT RASS -4, PER PROVIDER GOAL IS -3/-4 TO PROTECT AIRWAY AND PREVENT EXTUBATION, PT VERY DIFFICULT TO INTUBATE DUE TO INABILITY TO OPEN JAW FROM PREVIOUS PATHOLOGY AND INJURIES, BITE BLOCK IS IN PLACE ON RIGHT SIDE OF MOUTH. PT WILL WITHDRAW FROM NOXIOUS STIMULI AND HR/RR INCREASE WITH CARE/REPOSITIONING BUT WITH NO PURPOSEFUL MOVEMENT OR EYE OPENING. PT UNABLE TO FOLLOW COMMANDS. SATS >95%, RR IN HIGH 2OS, RHYTHM IS SINUS TACH 95-105 RATE, BP STABLE WITH MAP >65 AND SYSTOLIC IN THE 110S-120S. FAMILY IN WAITING AREA, TAKING TURNS COMING TO SIT AT BEDSIDE. CALL LIGHT WITHIN REACH.
--- NOTE | 2025-05-03 21:47 | NUR ---
CALL TO PROVIDER ON ASSESSMENT APPROX 1930 AND REVIEW OF PRIOR IMAGING/DOCUMENTATION, ETT MEASUREMENT DID NOT ALIGN WITH CHARTED POSITION. CONFIRMED WITH RT AND CALLED PROVIDER TO NOTIFY. ORDERS PLACED FOR CXR TO VERIFY PLACEMENT, PROVIDER REVIEWED AND CONFIRMED PLACEMENT IS OKAY.
[2025-05-04] VITALS (94 sets, daily range): BP systolic 65–143; BP diastolic 45–95
[2025-05-04 03:31] LABS: Hematocrit 25.0 % (33.0-51.0); Hemoglobin 8.3 g/dL (11.5-16.0); Mean Corpuscular HGB Conc 33.2 g/dL (31.5-36.5); Mean Corpuscular Volume 88 fL (80-100); NRBC ABSOLUTE 0.07 K/mm3 (0.00-0.02); NRBC Auto 0.5 /100 WBC (0.0-0.2); Platelet Count 198 K/mm3 (150-400); RDW Coefficient Variation 17.2 % (11.7-14.2); RDW Standard Deviation 55.8 fL (35.1-46.3)
[2025-05-04 04:20] LABS: BAND PERCENT MAN 5 % (0-8); BASOPHILS ABSOLUTE MAN 0.14 K/mm3 (0.00-0.23); BASOPHILS PERCENT MAN 1 % (0-2); EOSINOPHILS ABSOLUTE MAN 0.14 K/mm3 (0.00-0.68); EOSINOPHILS PERCENT MAN 1 % (0-6); LYMPHOCYTES ABSOLUTE MAN 0.87 K/mm3 (0.84-5.20); LYMPHOCYTES PERCENT MAN 6 % (21-46); METAMYELOCYTE ABSOLUTE MAN 0.14 K/mm3 (0.00-0.00); METAMYELOCYTE PERCENT MAN 1 % (0-0); MONOCYTES ABSOLUTE MAN 0.73 K/mm3 (0.16-1.47); MONOCYTES PERCENT MAN 5 % (4-13); MYELOCYTE ABSOLUTE MAN 0.14 K/mm3 (0.00-0.00); MYELOCYTE PERCENT MAN 1 % (0-0); NEUTROPHILS ABSOLUTE MAN 12.46 K/mm3 (1.96-9.15); SEG NEUTROPHILS PERCENT MAN 80 % (41-73)
--- NOTE | 2025-05-04 05:01 | NUR ---
SHIFT SUMMARY PT REMAINS INTUBATED AND SEDATED RASS -3 TO -4 DEPENDING ON LEVEL OF STIMULATION, WITHDRAWING FROM PAIN BUT NO PURPOSEFUL MOVEMENT AND UNABLE TO FOLLOW COMMANDS. SATS REMAIN >94% ON VENT, CURRENT SETTINGS A/C PC 18/10.0/35% FI02. LEVO INFUSING AT 3 MCG, PROPOFOL AT 50 MCG, FENTANYL AT 50 MCG AND CPN AT 73 ML VIA PICC. PT WILL BECOME TACHYPNEIC TO THE 50S WITH STIMULATION, BP IS STABLE ON LEVO GTT WITH MAP >65, RHYTHM IS SINUS ON MONITOR, RATES IN 80S-110S. TEMP DIEZ IN PLACE AND DRAINING PALE YELLOW URINE TO GRAVITY. CALL LIGHT WITHIN REACH.
[2025-05-04 05:05] LABS: Magnesium, Blood 1.6 mg/dL (1.6-2.4)
[2025-05-04 05:16] LABS: Anion Gap 7.0 mmol/L (3-11); Blood Urea Nitrogen 26.0 mg/dL (8-24); CO2, Blood 23.0 mmol/L (21-32); Calcium, Blood 8.0 mg/dL (8.5-10.1); Chloride, Blood 111.0 mmol/L (98-108); Creatinine, Blood 0.5 mg/dL (0.40-1.00); Glucose, Blood 203.0 mg/dL (70-99); Phosphorus, Blood 2.9 mg/dL (2.5-4.9); Potassium, Blood 4.2 mmol/L (3.5-5.5); Sodium, Blood 137.0 mmol/L (136-145)
--- NOTE | 2025-05-04 07:05 | NUR ---
BSR WITH CHRISTAL AND JOHN, PT ON THE VENTILATOR AC/PC MODE, PEEP 10, FIO2 35%. PT WITHOUT ANY RESPONSE TO STIMULI, OTHER THAN INCREASED RESPIRATORY RATE. ORAL SECRETIONS CLEAR, REPOSITIONED, NO RESPONSE.
[2025-05-04] MEDS ORDERED: Mag Sulfate 1 GM/D5% 100ML 100 ML IV STA (08:30)
[2025-05-04] MEDS ORDERED: TPN Consult Notification XX ONE (14:00)
[2025-05-04] MEDS ORDERED: Parenteral Electolytes 40 ML,Potassium Phosphate Dibasic 30 MM,Multivitamins 10 ML,ZINC... IV SCH (17:00)
--- NOTE | 2025-05-04 18:25 | NUR ---
ABBEY HAS REMAINED ON THE VENTILATOR THROUGHOUT THE SHIFT. NO CHANGES. SHE HAS WHITE/HERNÁNDEZ RETURN VIA ETT SUCTIONING. ORAL SECRETIONS REMAIN CLEAR, ODIFEROUS. FAMILY AND FRIENDS HAVE COME IN AND OUT TODAY, MOST HAVE BEEN SAYING GOODBYE. SISTER MADE NO DECISIONS TO REMOVE THE VENTILATOR THIS SHIFT. THERE WAS A CHANGE IN THE CODE STATUS TO MEDICATIONS AND DEFIBRILLATION ONLY. DIEZ WITH GOOD URINE OUTPUT, ABDOMEN REMAINS WITH HYPOACTIVE BOWEL SOUNDS, NO BM. Q2 TURNS, ORAL CARE Q4, ARMS ELEVATED. PICC DRESSING CHANGED, PIV TO SHAHRIAR REMAINS PATENT, C/D/I. NOREPI TITRATE TO MAP >65, PROP DOWN TO 35, FENTANYL REMAINS AT 50MCG/HR. CPN CHANGED TO WITH LIPIDS.
[2025-05-05] VITALS (108 sets, daily range): BP systolic 67–149; BP diastolic 50–107
[2025-05-05 03:38] LABS: BASOPHILS ABSOLUTE AUTO 0.04 K/mm3 (0.00-0.23); BASOPHILS PERCENT AUTO 0 % (0-2); EOSINOPHILS ABSOLUTE AUTO 0.31 K/mm3 (0.00-0.68); EOSINOPHILS PERCENT AUTO 3 % (0-6); Hematocrit 25.3 % (33.0-51.0); Hemoglobin 8.4 g/dL (11.5-16.0); IMMATURE GRAN ABSOLUTE AUTO 0.82 K/mm3 (0.00-0.10); IMMATURE GRAN PERCENT AUTO 7 % (0-1); LYMPHOCYTES ABSOLUTE AUTO 1.47 K/mm3 (0.84-5.20); LYMPHOCYTES PERCENT AUTO 12 % (21-46); MONOCYTES ABSOLUTE AUTO 1.28 K/mm3 (0.16-1.47); MONOCYTES PERCENT AUTO 10 % (4-13); Mean Corpuscular HGB Conc 33.2 g/dL (31.5-36.5); Mean Corpuscular Volume 87 fL (80-100); NEUTROPHILS ABSOLUTE AUTO 8.52 K/mm3 (1.96-9.15); NEUTROPHILS PERCENT AUTO 69 % (41-73); NRBC ABSOLUTE 0.02 K/mm3 (0.00-0.02); NRBC Auto 0.2 /100 WBC (0.0-0.2); Platelet Count 268 K/mm3 (150-400); RDW Coefficient Variation 16.7 % (11.7-14.2); RDW Standard Deviation 53.0 fL (35.1-46.3)
[2025-05-05 04:03] LABS: Anion Gap 8.0 mmol/L (3-11); Blood Urea Nitrogen 23.0 mg/dL (8-24); CO2, Blood 24.0 mmol/L (21-32); Calcium, Blood 8.1 mg/dL (8.5-10.1); Chloride, Blood 109.0 mmol/L (98-108); Creatinine, Blood 0.45 mg/dL (0.40-1.00); Glucose, Blood 173.0 mg/dL (70-99); Phosphorus, Blood 3.8 mg/dL (2.5-4.9); Potassium, Blood 4.3 mmol/L (3.5-5.5); Sodium, Blood 137.0 mmol/L (136-145)
--- NOTE | 2025-05-05 04:51 | NUR ---
SHIFT SUMMARY PT REMAINED SEDATED AT RASS -3 W/ PROPOFOL AT 35 AND FENT GTT AT 50MCG INFUSING FOR VENT COMPLIANCE. PT DID NOT SHOW ANY PURPOSFUL MOVEMENTS T/O SHIFT. PUPILS REACTIVE BUT NOT OPENING EYES SPONTANEOUSLY. BECOMES TACHYPNEIC AND TACHYCARDIC WITH STIMULI, RR REACHES HIGH 65 WITH INTERVENTIONS. PRNS TO ASSIST WITH SEDATION BEFORE TURNS/BED BATH. L/S COARSE T/O, VENT SETTINGS REMAIN THE SAME ALL SHIFT. NO BMS THIS SHIFT. DIEZ IN PLACE AND DRAINING TO GRAVITY. FULL BED BATH AND LINEN CHANGE DONE THIS SHIFT. NO ACUTE EVENTS.
--- NOTE | 2025-05-05 15:28 | NUR ---
"Spiritual Care | Support Pt. is intubated and not responsive. Prayer is made over the Pt. Afterward conferred with Palliative Care over the plan moving forward. Will remain available to the family."
[2025-05-05] MEDS ORDERED: EpiNEPhrine 1 MG/1 ML 1ML Vial ONE (15:51)
--- NOTE | 2025-05-05 16:14 | NUR ---
05/05/25 1614 Lynn Wong INTO ICU 15 @ 1600. DUTCH CALDERON PROVIDING WATCH GUARD GATE SEDATION. PT CURRENTLY INTUBATED AND SEDATED. PROPOFOL GTT @ 35 MCG/KG/MIN AND FENTANYL GTT CONTINUOUS @ 50 MCG/HR.LEVOPHED DRIP RESTARTED @ 5 MCG/MIN FOR SBP 70'S.
--- NOTE | 2025-05-05 18:44 | NUR ---
SUMMARY PT INTUBATED AND SEDATED WITH PROPOFOL AND FENTANYL. SEDATION VACATION FROM PROPOFOL TODAY FOR A GOOD PORTION OF THE SHIFT. RESP REMAINED 28-32, HR 90-110, DID NOT ALARM ON THE VENTILATOR. CONTINUES TO HAVE LOCKED JAW. PLACED BACK ON SEDATION BEFORE EGD THIS EVENING. LEVOPHED ALSO HAD TO BE RESTARTED DUE TO SEDATION. EGD COMPLETED BY DR. BURCIAGA. SEE FLOWSHEET FOR SEDATION AND LEVOPHED TITRATION. REMAINS ON CPN. NO OTHER CHANGES THIS SHIFT.
--- NOTE | 2025-05-05 19:45 | NUR ---
ASSESSMENT/ ASSUMED CARE PT INTUBATED AND SEDATED. ON [facility] VENT AC/PC 18/12/10/30%. NONRESPONSIVE EXCEPT TO PAINFUL STIMULI. GRIMACE NOTED WITH ORAL CARE AND REPOSITIONING. NOT FOLLOWING INSTRUCTIONS. LUNGS COARSE AND DECREASED. HEART RATE REGULAR IN THE 80'S. BP STABLE ON LEVOPHED AT 2 MCQ. SCD'S ON. BT+ HYPOACTIVE. PICC LINE TO RIGHT UPPER ARM, DRSG INTACT. CPN AT 85 ML/HR, PROPOFOL AT 35 MCQ/KG/HR, FENTANYL AT 50 MCQ/HR AND LEVOPHED AT 2 MCQ/HR. IV TO LEFT UPPER ARM SALINE LOCKED. SITE CLEAR. DIEZ CATH PATENT DRAINING CLEAR YELLOW URINE. SCAB NOTED TO LLQ ABD, MOVIE SHOT CAMERAMAN. DRSG TO COCCYX CHANGED DUE TO PURULENT DRAINAGE. DRSG TO LEFT BUTTOCKS CD&I. REPOSTIONED AND ORAL CARE DONE. FAMILY AT BEDSIDE. QUESTIONS ANSWERED.
[2025-05-06] VITALS (95 sets, daily range): BP systolic 71–136; BP diastolic 51–96
[2025-05-06 03:16] LABS: BASOPHILS ABSOLUTE AUTO 0.03 K/mm3 (0.00-0.23); BASOPHILS PERCENT AUTO 0 % (0-2); EOSINOPHILS ABSOLUTE AUTO 0.24 K/mm3 (0.00-0.68); EOSINOPHILS PERCENT AUTO 2 % (0-6); Hematocrit 25.4 % (33.0-51.0); Hemoglobin 8.4 g/dL (11.5-16.0); IMMATURE GRAN ABSOLUTE AUTO 0.44 K/mm3 (0.00-0.10); IMMATURE GRAN PERCENT AUTO 4 % (0-1); LYMPHOCYTES ABSOLUTE AUTO 1.55 K/mm3 (0.84-5.20); LYMPHOCYTES PERCENT AUTO 14 % (21-46); MONOCYTES ABSOLUTE AUTO 1.18 K/mm3 (0.16-1.47); MONOCYTES PERCENT AUTO 10 % (4-13); Mean Corpuscular HGB Conc 33.1 g/dL (31.5-36.5); Mean Corpuscular Volume 87 fL (80-100); NEUTROPHILS ABSOLUTE AUTO 8.04 K/mm3 (1.96-9.15); NEUTROPHILS PERCENT AUTO 70 % (41-73); NRBC ABSOLUTE 0.02 K/mm3 (0.00-0.02); NRBC Auto 0.2 /100 WBC (0.0-0.2); Platelet Count 343 K/mm3 (150-400); RDW Coefficient Variation 16.3 % (11.7-14.2); RDW Standard Deviation 51.6 fL (35.1-46.3)
[2025-05-06 03:41] LABS: Alanine Aminotransfer (ALT/SGP 65.0 U/L (12-78); Albumin, Blood 1.2 g/dL (3.4-5.0); Albumin/Globulin Ratio 0.3 (0.8-1.8); Anion Gap 9.0 mmol/L (3-11); Aspartate Aminotrans (AST/SGOT 95.0 U/L (12-37); Bilirubin, Total 0.2 mg/dL (0.1-1.0); Blood Urea Nitrogen 25.0 mg/dL (8-24); CO2, Blood 25.0 mmol/L (21-32); Calcium, Blood 8.3 mg/dL (8.5-10.1); Chloride, Blood 108.0 mmol/L (98-108); Creatinine, Blood 0.45 mg/dL (0.40-1.00); Globulin, Blood 4.7 g/dL (2.2-4.0); Glucose, Blood 166.0 mg/dL (70-99); Potassium, Blood 3.8 mmol/L (3.5-5.5); Sodium, Blood 138.0 mmol/L (136-145); Total Protein, Blood 5.9 g/dL (6.4-8.2)
--- NOTE | 2025-05-06 06:17 | NUR ---
SHIFT SUMMARY PT RESTING QUIELTY. CONT ON [facility] VENT. VENT SETTING NO CHANGE DURING THE NIGHT. VENT SETTINGS AC/PC 18/12/10/30%. SUCTIONED SMALL AMT CLEAR SECRECTIONS VIA ET TUBE. PT NOT FOLLOWING INSTRUCTIONS. EXT STIFF. TURNED SIDE TO SIDE TO KEEP OFF COCCYX. DRSG TO COCCYX CHANGED DURING THE NIGHT. HEART RATE REMAINS IN THE 80-90'S. TITRATED LEVOPHED DOWN TO 1 MCQ/HR BUT HAD TO INCREASE BACK UP TO 2 MCQ/HR DUE TO HYPOTENSION. CURRENT IV FLUIDS INFUSING CPN AT 85 ML/HR, PROPOFOL AT 35 MCQ/KG/HR, FENTANYL GTT AT 50 MCQ/HR, AND LEVOPHED AT 2 MCQ/HR. DIEZ CATH PATENT AND DRAINING. FAMILY INTO SEE PT DURING THE NIGHT. REPORT TO ON COMING NURSE.
--- NOTE | 2025-05-06 17:00 | NUR ---
PALLIATIVE CARE VISIT: CHECKED IN ON FAMILY. THEY HAD CONVERSATION WITH DR. GALLAGHER WITH C CONVERSATION. FAMILY DENIES NEEDS OR CONCERNS AT THIS TIME.
--- NOTE | 2025-05-06 17:49 | NUR ---
SUMMARY PT INTUBATED, SEDATED WITH PROPOFOL AND FENTANYL. SEDATION VACATION FROM PROPOFOL MOST OF THIS SHIFT. PT SPONT OPENS EYE'S BUT DOES NOT SEEM TO TRACK. NOT FOLLOWING COMMANDS, NO PURPOSEFUL MOVEMENT. THIS EVENING SHE WAS THROWING HER HEAD SIDE TO SIDE AND ALARMING ON THE VENT FOR HIGH RESP RATE, RESTARTED PROPOFOL. LEVOPHED BACK ON AFTER SEDATION WAS TURNED BACK ON WELL. UPDATED DR. GALLAGHER ABOUT DAY AND HE ORDERED PRECEDEX GTT TO HOPEFULLY GET PT OFF PROPOFOL. ALSO HALF THE DOSE OF FENTANYL AGAIN TO 12.5MCG/HR. CONTINUES WITH CPN DUE TO GUT MOTILITY AND UNABLE TO PLACE OG TUBE PER DR. BURCIAGA. CONTINUES TO HAVE LOCK JAW, EVEN WITH SOFT BITE BLOCK IN PLACE ORAL CARE IS DIFFICULT. FAMILY HAS BEEN UPDATED.
--- NOTE | 2025-05-06 19:00 | NUR ---
ASSUMPTION OF CARE NOTE: ASSUMED CARE OF PT AT 1900, PT REMAINS INTUBATED AND SEDATED (SEE VENT SETTINGS IN ASSESSMENT). PT HAS LEVO, PROPOFOL, FENTANYL, PRECEDEX AND CPN CURRENTLY INFUSING (SEE FLOWSHEET). RAJENDRA PICC AND PIV'S REMAIN PATENT. PATENT DIEZ DRAINING TO GRAVITY. PT ORIENTED TO NONE WITH NO PURPOSEFUL MOVEMENTS, RASS -3. FAMILY IN ICU WAITING ROOM. SBP'S 90'S-100'S. SPO2 >94%. BED LOW AND LOCKED FOR SAFETY.
[2025-05-07] VITALS (91 sets, daily range): BP systolic 78–141; BP diastolic 25–98
[2025-05-07 03:46] LABS: BASOPHILS ABSOLUTE AUTO 0.05 K/mm3 (0.00-0.23); BASOPHILS PERCENT AUTO 0 % (0-2); EOSINOPHILS ABSOLUTE AUTO 0.25 K/mm3 (0.00-0.68); EOSINOPHILS PERCENT AUTO 2 % (0-6); Hematocrit 23.3 % (33.0-51.0); Hemoglobin 7.8 g/dL (11.5-16.0); IMMATURE GRAN ABSOLUTE AUTO 0.24 K/mm3 (0.00-0.10); IMMATURE GRAN PERCENT AUTO 2 % (0-1); LYMPHOCYTES ABSOLUTE AUTO 1.48 K/mm3 (0.84-5.20); LYMPHOCYTES PERCENT AUTO 12 % (21-46); MONOCYTES ABSOLUTE AUTO 1.07 K/mm3 (0.16-1.47); MONOCYTES PERCENT AUTO 8 % (4-13); Mean Corpuscular HGB Conc 33.5 g/dL (31.5-36.5); Mean Corpuscular Volume 86 fL (80-100); NEUTROPHILS ABSOLUTE AUTO 9.82 K/mm3 (1.96-9.15); NEUTROPHILS PERCENT AUTO 76 % (41-73); NRBC ABSOLUTE 0.00 K/mm3 (0.00-0.02); NRBC Auto 0.0 /100 WBC (0.0-0.2); Platelet Count 372 K/mm3 (150-400); RDW Coefficient Variation 16.1 % (11.7-14.2); RDW Standard Deviation 50.7 fL (35.1-46.3)
[2025-05-07 04:07] LABS: Anion Gap 8.0 mmol/L (3-11); Blood Urea Nitrogen 22.0 mg/dL (8-24); CO2, Blood 26.0 mmol/L (21-32); Calcium, Blood 8.2 mg/dL (8.5-10.1); Chloride, Blood 108.0 mmol/L (98-108); Creatinine, Blood 0.5 mg/dL (0.40-1.00); Glucose, Blood 241.0 mg/dL (70-99); Potassium, Blood 3.9 mmol/L (3.5-5.5); Sodium, Blood 138.0 mmol/L (136-145)
--- NOTE | 2025-05-07 05:58 | NUR ---
SHIFT SUMM: PT REMAINS INTUBATED AND SEDATED AND VENT SETTINGS REMAIN UNCHANGED WITH SPO2 > 92%. SBP'S PRIARILY RANGE BETWEEM 80'S-110'S THIS SHIFT AND A GOAL MAP > 65. PT CONTINUES TO HAVE CPN, PRECEDEX, FENTANYL, LEVOPHED AND PROPOFOL INFUSING (SEE FLOWSHEET FOR TITRATIONS). PT DOES THRASH HEAD IN BED AT TIMES WITH NO PURPOSEFUL MOVEMENTS AND GRIMACES, PRN FENTANYL IV PUSHES HAVE HELPED PT RELAX THIS SHIFT. TEMP DIEZ REMAINS PATENT. RAJENDRA PICC AND PIV REMAINS PATENT. BOTH MEPILEX ON PT'S BUTTOCKS WERE CHANGED WITH C/D/I MEPILEX. PT IS ORIENTED TO NONE AT THIS TIME. FAMILY IN ICU WAITING ROOM. PT IS Q6 BS CHECKS. PT HAS BED LOW AND LOCKED FOR SAFETY.
--- NOTE | 2025-05-07 18:06 | NUR ---
SHIFT SUMMARY PT UNRESPONSIVE IN BED AT TIME OF BESIDE REPORT, NO PURPOSEFUL MOVEMENT W/ STIMULATION PRESENT, ABLE TO GRIMACE TO PAIN. PT INTUBATED ON VENT ACPC 18/12/8/30%. LUNG SOUNDS CLEAR/DIM T/O VASQUEZ. ABD SOFT AND MILDLY DISTENDED, BOWEL TONES HYPOACTIVE. NSR ON MONITOR, MAPS>65 ON MINIMAL PRESSOR SUPPORT. CAP REFILL <3 SECS, +1 BLE EDEMA NOTED. SKIN W/ SCATTERED ECCHYMOSIS AND SCABS, HEALING SCAB PRESENT ON R SIDED ABD, HEALING PRESSURE WOUND PRESENT ON COCCYX W/ MEPILEX PLACED. SAT BEGAN AT 1000, PT ABLE TO NOD YES TO QUESTIONS, UNABLE TO FOLLOW COMMANDS W/ EXTREMITIES. PT NODS YES TO MANY QUESTIONS BUT DOES NOT SHAKE HEAD NO. FAMILY IN ROOM IN AM FOR VISITATION. DICSUSSION HAD W/ GALLAGHER AND FAMILY TO CONTINUE SAT AND SBT TRIALS TO CONTINUE PT IMPROVEMENT. SBT BEGAN AT 1330 W/ SETTINGS OF 10/8/30%. PT TOLERATED FOR 4 HOURS, THEN SWITCHED BACK TO ACPC W/ SEDATION FOR TOLERANCE. GTTS: CPN 85ML/HR, FENTANYL 125MCG/HR, PRECEDEX 1 MCG/KG/HR
--- NOTE | 2025-05-07 21:34 | NUR ---
ASSUMPTION OF CARE ASSUMED CARE OF PT APPROX 1900. PT REMAINS INTUBATED AND SEDATED WITH RASS -2. PROPOFOL INFUSING AT 20 MCG, PRECEDEX AT 1 MCG, FENTANYL AT 12.5 FIXED RATE, LEVO IS ON SB AND CPN INFUSING AT 85 ML -SEE CCFS. PT ATTEMPTS TO OPEN EYES TO PROMPTING BUT UNABLE TO MAINTAIN EYE CONTACT OR TRACK. MOVES ALL EXTREMITIES WHEN AGITATED. RHYTHM REMAINS SINUS ON MONITOR WITH RATE IN 60S-70S, BP STABLE WITH MAP >65. SATS REMAIN >93% ON VENT, BRIEF DESAT TO 87%, RT CALLED TO BEDSIDE, SUCTIONED AND SETTINGS WERE ADJUSTED -SEE CCFS. PT CURRENTLY AT 98%. CURRENT VENT SETTINGS A/C P[ 18/8.0/40% FI02. TEMP DIEZ IN PLACE DRAINING TO GRAVITY. CALL LIGHT WITHIN REACH.
[2025-05-08] VITALS (55 sets, daily range): BP systolic 72–150; BP diastolic 51–101
[2025-05-08 03:50] LABS: BASOPHILS ABSOLUTE AUTO 0.04 K/mm3 (0.00-0.23); BASOPHILS PERCENT AUTO 0 % (0-2); EOSINOPHILS ABSOLUTE AUTO 0.23 K/mm3 (0.00-0.68); EOSINOPHILS PERCENT AUTO 2 % (0-6); Hematocrit 22.8 % (33.0-51.0); Hemoglobin 7.5 g/dL (11.5-16.0); IMMATURE GRAN ABSOLUTE AUTO 0.17 K/mm3 (0.00-0.10); IMMATURE GRAN PERCENT AUTO 1 % (0-1); LYMPHOCYTES ABSOLUTE AUTO 1.50 K/mm3 (0.84-5.20); LYMPHOCYTES PERCENT AUTO 10 % (21-46); MONOCYTES ABSOLUTE AUTO 0.88 K/mm3 (0.16-1.47); MONOCYTES PERCENT AUTO 6 % (4-13); Mean Corpuscular HGB Conc 32.9 g/dL (31.5-36.5); Mean Corpuscular Volume 86 fL (80-100); NEUTROPHILS ABSOLUTE AUTO 12.18 K/mm3 (1.96-9.15); NEUTROPHILS PERCENT AUTO 81 % (41-73); NRBC ABSOLUTE 0.00 K/mm3 (0.00-0.02); NRBC Auto 0.0 /100 WBC (0.0-0.2); Platelet Count 416 K/mm3 (150-400); RDW Coefficient Variation 15.9 % (11.7-14.2); RDW Standard Deviation 50.4 fL (35.1-46.3)
[2025-05-08 04:11] LABS: Alanine Aminotransfer (ALT/SGP 46.0 U/L (12-78); Albumin, Blood 1.2 g/dL (3.4-5.0); Albumin/Globulin Ratio 0.3 (0.8-1.8); Anion Gap 8.0 mmol/L (3-11); Aspartate Aminotrans (AST/SGOT 41.0 U/L (12-37); Bilirubin, Total 0.3 mg/dL (0.1-1.0); Blood Urea Nitrogen 25.0 mg/dL (8-24); CO2, Blood 27.0 mmol/L (21-32); Calcium, Blood 8.0 mg/dL (8.5-10.1); Chloride, Blood 106.0 mmol/L (98-108); Creatinine, Blood 0.48 mg/dL (0.40-1.00); Globulin, Blood 4.5 g/dL (2.2-4.0); Glucose, Blood 232.0 mg/dL (70-99); Potassium, Blood 3.8 mmol/L (3.5-5.5); Sodium, Blood 137.0 mmol/L (136-145); Total Protein, Blood 5.7 g/dL (6.4-8.2)
--- NOTE | 2025-05-08 06:07 | NUR ---
SHIFT SUMMARY PT REMAINS INTUBATED AND SEDATED, PROPOFOL INFUSING AT 15 MCG, PRECEDEX AT 1 MCG, FENTANYL AT 12.5 MCG, AND CPN AT 85 ML AND LEVO ON SB. PT RASS -2, ATTEMPTS TO OPEN EYES WITH STIMULATION, ABLE TO MOVE ALL EXTREMITIES. RHYTHM IS SINUS ON MONITOR WITH RATE IN 60S AND BP IS STABLE WITH MAP >65. SATS REMAIN >90% ON VENT, CURRENT SETTINGS A/C PC 18/80/30% FI02. TEMP DIEZ IN PLACE AND DRAINING TO GRAVITY, CALL LIGHT WITHIN REACH.
--- NOTE | 2025-05-08 11:30 | NUR ---
PALLIATIVE CARE NOTE: DISCUSSED CONCERNS WITH DR. GALLAGHER. HE HAS ORDERED CT OF HEAD. HE STATES FAMILY HAVE BEEN UNREALISTIC WITH CARE AND ARE NOW ALLOWING PT TO MAKE DECISIONS SINCE SHE IS AWAKE ALTHOUGH AT THIS TIME UNABLE TO DETERMINE IF PT UNDERSTANDS PROGNOSIS. PT CONTINUES TO BE INTUBATED. PT UNLIKELY TO BE ABLE TO BE INTUBATED AGAIN IF NEED ARISES POST EXTUBATION. DR. GALLAGHER PLANS TO MEET WITH FAMILY AFTEER REVIEWING CT SCAN. WILL BE AVAILABLE IF NEEDED FOR FAMILY MEETING IF DR. GALLAGHER REQUESTS.
--- NOTE | 2025-05-08 18:24 | NUR ---
SHIFT SUMMARY PT SEDATED/INTUBATED IN BED AT TIME OF BEDSIDE REPORT. SEDATION TURNED OFF AT 0830. PT ABLE TO FOLLOW COMANDS AND ANSWER SIMPLE QUESTIONS WITH HEAD NODDING/SHAKING. MOVES ALL EXTREMITIES SPONTANEOUSLY AND IS VERY PAINFUL/RESTLESS. NSR ON MONITOR, MAPS >65, CAP REFILL <3 SEC, MILD EDEMA IN BUE. LUNGS SOUNDS CLEAR/DIM T/O VASQUEZ, COPIOUS ET AND ORAL CLEAR/THICK SECRETIONS, OCCASIONAL COUGH. VENT SETTINGS ACPC 18/12/8/30% WHEN SEDATED, SETTINGS SPONTANEOUS 10/8/30% WHEN AWAKE. TOLERATED SBT FROM [id number]. ABD SOFT AND NONTENDER, BOWEL SOUNDS. LARGE FORMED BM TODAY. DIEZ CATHETER IN PLACE AND DRAINING TO GRAVITY. WOUNDS REASSESSED AND PHOTOS UPDATED IN CHART, DR. WATSON REVIEWED WOUNDS W/ RN DURING ROUNDING. PT WENT TO CT THIS PM, TOLERATED IMAGING STUDY WELL. DR. GALLAGHER HAD EXTENSIVE CONVERSATIONS W/ FAMILY REGARDING GOALS OF CARE. GTTS: PRECEDEX 1 MCG/KG/HR, PROPOFOL MCG/KG/HR, FENTANYL 12.5 MCG/HR, CPN 85ML/HR, LEVOPHED 1 MCG/MIN
[2025-05-09] VITALS (79 sets, daily range): BP systolic 40–154; BP diastolic 30–98
[2025-05-09 03:50] LABS: BASOPHILS ABSOLUTE AUTO 0.05 K/mm3 (0.00-0.23); BASOPHILS PERCENT AUTO 0 % (0-2); EOSINOPHILS ABSOLUTE AUTO 0.23 K/mm3 (0.00-0.68); EOSINOPHILS PERCENT AUTO 1 % (0-6); Hematocrit 23.0 % (33.0-51.0); Hemoglobin 7.5 g/dL (11.5-16.0); IMMATURE GRAN ABSOLUTE AUTO 0.14 K/mm3 (0.00-0.10); IMMATURE GRAN PERCENT AUTO 1 % (0-1); LYMPHOCYTES ABSOLUTE AUTO 1.49 K/mm3 (0.84-5.20); LYMPHOCYTES PERCENT AUTO 9 % (21-46); MONOCYTES ABSOLUTE AUTO 0.89 K/mm3 (0.16-1.47); MONOCYTES PERCENT AUTO 5 % (4-13); Mean Corpuscular HGB Conc 32.6 g/dL (31.5-36.5); Mean Corpuscular Volume 86 fL (80-100); NEUTROPHILS ABSOLUTE AUTO 13.96 K/mm3 (1.96-9.15); NEUTROPHILS PERCENT AUTO 83 % (41-73); NRBC ABSOLUTE 0.00 K/mm3 (0.00-0.02); NRBC Auto 0.0 /100 WBC (0.0-0.2); Platelet Count 486 K/mm3 (150-400); RDW Coefficient Variation 15.9 % (11.7-14.2); RDW Standard Deviation 50.4 fL (35.1-46.3)
[2025-05-09 04:10] LABS: Alanine Aminotransfer (ALT/SGP 52.0 U/L (12-78); Albumin, Blood 1.3 g/dL (3.4-5.0); Albumin/Globulin Ratio 0.3 (0.8-1.8); Anion Gap 8.0 mmol/L (3-11); Aspartate Aminotrans (AST/SGOT 54.0 U/L (12-37); Bilirubin, Total 0.2 mg/dL (0.1-1.0); Blood Urea Nitrogen 25.0 mg/dL (8-24); CO2, Blood 26.0 mmol/L (21-32); Calcium, Blood 8.1 mg/dL (8.5-10.1); Chloride, Blood 107.0 mmol/L (98-108); Creatinine, Blood 0.49 mg/dL (0.40-1.00); Globulin, Blood 4.8 g/dL (2.2-4.0); Glucose, Blood 233.0 mg/dL (70-99); Magnesium, Blood 1.6 mg/dL (1.6-2.4); Phosphorus, Blood 4.3 mg/dL (2.5-4.9); Potassium, Blood 3.9 mmol/L (3.5-5.5); Sodium, Blood 137.0 mmol/L (136-145); Total Protein, Blood 6.1 g/dL (6.4-8.2)
--- NOTE | 2025-05-09 06:08 | NUR ---
SHIFT SUMM: PT REMAINS INTUBATED AND SEDATED (SEE RESP ASSESSMENT FOR VENT SETTINGS) WITH CPN, PRECEDEX, FENTANYL, LEVOPHED AND PROPOFOL INFUSING (SEE FLOWSHEET FOR TITRATIONS). PT A&O TO SELF AND WHEN AWAKE SHE IS ALERT AND ABLE TO NOD HEAD YES OR NO TO QUESTIONS AND MOVE EXTREMETIES. SBP'S 90'S-120'S. SPO2 >94%.TEMP DIEZ PATENT. RAJENDRA PICC PATENT. PRN FENTANYL PUSHES GIVEN FOR COMFORT WHEN NEEDED. BED BATH COMPLETE WITH CHG WIPES AND ZOE CARE WIPES. PT TURNED Q2 TO PREVENT FURTHER SKIN BREAKDOWN. Q6 BS CHECKS. FAMILY IN ICU WAITING ROOM. BED LOW AND LOCKED FOR SAFETY.
[2025-05-09 12:20] LABS: Triglycerides 111 mg/dL (30-160)
--- NOTE | 2025-05-09 19:40 | NUR ---
SHIFT SUMMARY PT INTUBATED/SEDATED IN BED DURING BEDSIDE REPORT. PT DROWSY AND ORIENTED TO SELF. PT ABLE TO ANSWER YES OR NO QUESTIONS W/ NODDING/SHAKING OF HEAD. MOVES ALL EXTREMITIES SPONTANEOUSLY. PT REMAINED SEDATED UNTIL PM FOR COMFORT WHILE FAMILY DISCUSSED PLAN POST EXTUBATION. VENT SETTINGS ACPC 18/12/8/30%. VENT SETTINGS CHANGED TO SPONTANEOUS 7/5/30% AT 0800, PRESSURE SUPPORT ADJUSTED TO 10 AT 1100. PT TOLERATED THESE SETTINGS UNTIL EXTUBATION IN AFTERNOON. NSR ON MONITOR, MILD EDEMA IN RUE, CAP REFILL <3 SECS, MAPS>65 W/ INTERMITTENT LEVOPHED GTT. ABD MILDLY DISTENDED AND SOFT, BOWEL SOUNDS HYPOACTIVE. ONE BM TODAY. DIEZ CATHETER IN PLACE AND DRAINING TO GRAVITY. SKIN W/ SCATTERED BRUISING/SCABS, WOUND PICTURES IN CHART. EXTENSIVE CONVERSATION HAD W/ PALLIATIVE CARE AND DR. KRISTIE BURT POST EXTUBATION CARE. FAMILY AGREED THAT PT WOULD NOT TOLERATE RE-INTUBATION IF EXTUBATION FAILS. PT REMAINS DNI. SEDATION WAS TURNED OFF AT 1330 IN PREPARATION FOR EXTUBATION. PT WAS ABLE TO FOLLOW COMMANDS AND WAS TRANSITIONED TO 2LPM NC WHEN ETT WAS REMOVED. PT WAS ABLE TO TOLERATE THIS FOR 45 MINUTES BEFORE BEING PLACED ON BIPAP FOR INCREASED WORK OF BREATHING. BITE BLOCK HAS REAMINED IN PLACE FOR CONTINUED SECRETION SUCTIONING. RT ATTEMPTED TO REMOVE BITE BLOCK TO REPLACE WITH NEW SITE W/O SUCCESS.
--- NOTE | 2025-05-09 23:04 | NUR ---
ASSUMPTION OF CARE ASSUMED CARE OF PT APPROX 1900. PT IS ALERT, ABLE TO NOD/SHAKE HEAD TO QUESTIONS, ORIENTED TO SELF, PERSON AND PLACE. NOT ABLE TO VOCALIZE AT THIS TIME, HAS BITE BLOCK AND BIPAP IN PLACE AT 12/8 55% FI02 AND SATS 100%. PT HAS LARGE AMOUNT OF THICK SECRETIIONS REQUIRING SEMI-FREQUENT SUCTIONING. PT REMAINS ON LEVO GTT AT 5MCG, PRECEDEX AT 1.2 MCG AND CPN AT 85 ML INFUSING VIA PICC IN RUE. PT WITH METASTATIC CANCER AND WIDESPREAD CHRONIC PAIN, REPOSITIONING FREQUENTLY AND MEDS PER EMAR. BP IS STABLE MAP >65 AND SBP IN LOW 100S. SINUS RHYTHM ON MONITOR WITH RATE IN THE 70S-80S. FAMILY AT BEDSIDE. TEMP DIEZ IN PLACE, DRAINING TO GRAVITY. CALL LIGHT WITHIN REACH.
[2025-05-10] VITALS (86 sets, daily range): BP systolic 76–129; BP diastolic 48–95
[2025-05-10 03:30] LABS: BASOPHILS ABSOLUTE AUTO 0.08 K/mm3 (0.00-0.23); BASOPHILS PERCENT AUTO 0 % (0-2); EOSINOPHILS ABSOLUTE AUTO 0.16 K/mm3 (0.00-0.68); EOSINOPHILS PERCENT AUTO 1 % (0-6); Hematocrit 25.0 % (33.0-51.0); Hemoglobin 8.2 g/dL (11.5-16.0); IMMATURE GRAN ABSOLUTE AUTO 0.16 K/mm3 (0.00-0.10); IMMATURE GRAN PERCENT AUTO 1 % (0-1); LYMPHOCYTES ABSOLUTE AUTO 1.53 K/mm3 (0.84-5.20); LYMPHOCYTES PERCENT AUTO 7 % (21-46); MONOCYTES ABSOLUTE AUTO 0.83 K/mm3 (0.16-1.47); MONOCYTES PERCENT AUTO 4 % (4-13); Mean Corpuscular HGB Conc 32.8 g/dL (31.5-36.5); Mean Corpuscular Volume 86 fL (80-100); NEUTROPHILS ABSOLUTE AUTO 18.08 K/mm3 (1.96-9.15); NEUTROPHILS PERCENT AUTO 87 % (41-73); NRBC ABSOLUTE 0.00 K/mm3 (0.00-0.02); NRBC Auto 0.0 /100 WBC (0.0-0.2); Platelet Count 445 K/mm3 (150-400); RDW Coefficient Variation 15.9 % (11.7-14.2); RDW Standard Deviation 49.9 fL (35.1-46.3)
[2025-05-10 03:49] LABS: Alanine Aminotransfer (ALT/SGP 129.0 U/L (12-78); Albumin, Blood 1.4 g/dL (3.4-5.0); Albumin/Globulin Ratio 0.3 (0.8-1.8); Anion Gap 11.0 mmol/L (3-11); Aspartate Aminotrans (AST/SGOT 228.0 U/L (12-37); Bilirubin, Total 0.3 mg/dL (0.1-1.0); Blood Urea Nitrogen 33.0 mg/dL (8-24); CO2, Blood 22.0 mmol/L (21-32); Calcium, Blood 8.1 mg/dL (8.5-10.1); Chloride, Blood 107.0 mmol/L (98-108); Creatinine, Blood 0.48 mg/dL (0.40-1.00); Globulin, Blood 4.9 g/dL (2.2-4.0); Glucose, Blood 279.0 mg/dL (70-99); Magnesium, Blood 1.7 mg/dL (1.6-2.4); Phosphorus, Blood 4.5 mg/dL (2.5-4.9); Potassium, Blood 3.8 mmol/L (3.5-5.5); Sodium, Blood 136.0 mmol/L (136-145); Total Protein, Blood 6.3 g/dL (6.4-8.2)
--- NOTE | 2025-05-10 06:26 | NUR ---
SHIFT SUMMARY PT REMAINS ON BIPAP 05/09 55% FI02. SATS REMAIN >90% AFTER DESATTING TO THE MID 70S AT WHICH TIME FI02 WAS INCREASED TO THE CURRENT 55%. LEVO INFUSING AT 2 MCG, PRECEDEX AT 1.4, CPN AT 85 ML VIA PICC IN RUE. SINUS RHYTHM ON MONITOR WITH RATES IN THE 70S, BP IS STABLE ON LEVO GTT WITH MAP >65 AND SBP IN THE 90S-110S. PT ORIENTED TO SELF/PERSON, NOT DATE OR SITUATION. WILL NOD HEAD YES WHEN SPOKEN TO BUT OFTEN TIMES WILL NOD TO CONTRADICTORY QUESTIONS. ABLE TO MOVE ALL EXTREMITIES WITHOUT APPARENT DIFFICULTY. PT BECAME MORE AGITATED ON BIPAP AND PULLING AT MASK T/O SHIFT AND SITTER WAS CALLED TO BEDSIDE APPROX 0400 TO ASSIST WITH REDIRECTING. TEMP DIEZ IN PLACE AND DRAINING TO GRAVITY. CALL LIGHT WITHIN REACH.
[2025-05-10] MEDS ORDERED: Alteplase Recombinant 2 MG / Vial IV ONE (09:45)
--- NOTE | 2025-05-10 09:58 | NUR ---
AM NOTE... ASSUMED CARE OF PT AT 0700, PT IS ALERT AND FOLLOWING COMMANDS ON THE BIPAP. PT IS ABLE TO NOD/SHAKE HER HEAD APPROPRIATELY TO QUESTIONS. PT IS ABLE TO MOVE ALL EXTREMITIES. PT IS ON THE BIPAP AT 12/8 AND 55% WITH O2 SATS>90%, L/S VERY COARSE RHONCHI T/O ON THE RIGHT SIDE, DIM IN THE BASES. THE PT'S RENÉE IS DIM AND THE LLL IS COARSE AND DIM. PRECEDEX GTT IS RUNNING AT 1.4MCG/KG/HR FOR BIPAP COMPLIANCE. PT IS IN SR IN THE 70'S BP IS SOFT, LEVOPHED WAS ON AT 2MCG/MIN TO KEEP MAPS>65 THIS WAS STOPPED AT 0745, BP IS STILL SOFT BUT MAPS ARE >65. PT HAS MINIMAL EDEMA TO HER BUE AND BLE. BT ARE PRESENT AND HYPOACTIVE, ABD IS SOFT TO PALPATION. TEMP DIEZ IN PLACE AND DRAINING TO GRAVITY. DURING THIS AM ASSESSMENT THIS RN ASKED THE PT SEVERAL "YES/NO" QUESTIONS SHE WAS ABLE TO NOD/SHAKE HER HEAD APPROPRIATELY. THE PT WAS ALSO ABLE TO FOLLOW COMMANDS SUCH "SQUEEZE MY HAND 2 TIMES FOR YES AND 1 TIME FOR NO." THE PT WAS ABLE TO SQUEEZE HER HAND APPROPRIATELY IN ANSWER TO QUESTIONS SUCH : ARE YOU IN PAIN? ARE YOU IN [place]? ETC. ORAL CARE WAS DONE WITH RT AT THE BEDSIDE, A LARGE AMOUNT OF THICK HERNÁNDEZ/WHITE SPUTUM WAS SUCTIONED BY RT. SITTER IS AT THE BEDSIDE TO HELP REDIRECT THE PT FROM PULLING OFF THE BIPAP.
[2025-05-10] MEDS ORDERED: TPN Consult Notification XX ONE (11:35)
[2025-05-10] MEDS ORDERED: Insulin Regular 100 UNIT/ML 10ML Vial SC SCH (12:00)
[2025-05-10 14:03] LABS: Acinetobacter baumannii DNA Not Detected copy/mL (NOT DETECT); Enterobacter cloacae DNA Not Detected copy/mL (NOT DETECT); Escherichia coli DNA Not Detected copy/mL (NOT DETECT); Haemophilus influenzae DNA Not Detected copy/mL (NOT DETECT); Klebsiella aerogenes DNA Not Detected copy/mL (NOT DETECT); Klebsiella oxytoca DNA Not Detected copy/mL (NOT DETECT); Klebsiella pneumoniae DNA Not Detected copy/mL (NOT DETECT); Moraxella catarrhalis DNA Not Detected copy/mL (NOT DETECT); Proteus sp DNA Not Detected copy/mL (NOT DETECT); Pseudomonas aeruginosa DNA Not Detected copy/mL (NOT DETECT)
[2025-05-10 14:04] LABS: Chlamydia pneumonia Not Detected (NOT DETECT); Human Coronavirus RNA Not Detected (NOT DETECT); Human Metapneumovirus RNA Not Detected (NOT DETECT); Influenza virus A RNA Not Detected (NOT DETECT); Influenza virus B RNA Not Detected (NOT DETECT); Respiratory syncytial Vir RNA Not Detected (NOT DETECT); Rhinovirus+Enterovirus RNA Not Detected (NOT DETECT); Serratia marcescens DNA Not Detected copy/mL (NOT DETECT); Staphylococcus aureus DNA Not Detected copy/mL (NOT DETECT); Streptococcus agalactiae DNA Not Detected copy/mL (NOT DETECT); Streptococcus pneumoniae DNA Not Detected copy/mL (NOT DETECT); Streptococcus pyogenes DNA Not Detected copy/mL (NOT DETECT)
[2025-05-10] MEDS ORDERED: Parenteral Electolytes 40 ML,Potassium Phosphate Dibasic 30 MM,Multivitamins 10 ML,ZINC... IV SCH (17:00)
--- NOTE | 2025-05-10 18:12 | NUR ---
SHIFT SUMMARY.... PT'S PRECEDEX DRIP HAS BEEN TITRATED DOWN FROM 1.4MCG/KG/HR TO 1.0MCG/KG/HR. PT HAS BEEN ON THE BIPAP MOST OF THE SHIFT WITH 1 BREAK THAT LASTED APROX 30MINS ON OXYMASK AT 15L. AT APROX 1600 THE PT WAS GIVEN ANOTHER BREAK AND THE BITEBLOCK WAS REMOVED BY . PT THEN REFUSED TO PUT THE BIPAP BACK ON, SHE WAS ON 15L OXYMASK THEN 15L NC UNDER THE OXYMASK. AT 1800 PT WAS PLACED BACK ON BIPAP D/T O2 SATS BEING AT 80% AND NOT IMPROVING. PT WAS PUT BACK ON BIPAP 12/8 AND 55% WITH NO IMPROVMENT OF HER O2 SATS, FIO2 WAS INCREASED TO 100% FOR 5MINS WITH VERY SLOW IMPROVMENT TO O2 SATS >90%. THE PT CONTINUES TO COUGH UP VERY THICK HERNÁNDEZ/WHITE SPUTUM. L/S CONTINUE TO BE VERY COARSE ON THE RIGHT SIDE DIM IN THE RENÉE AND COARSE ON THE LLL. NO CHANGE TO THE PT'S RATE/RHYTHM. THE LEVOPHED HAS BEEN ON 2MCG/MIN OFF AND ON T/O THIS SHIFT D/T MAPS LESS THAN 65 (SEE CRITICAL CARE CHARTING.) PT'S DIEZ IS PATENT AND DRAINING TO GRAVITY. TMAX THIS SHIFT WAS 100.8. PT HAS NOT HAD A BM THIS SHIFT. CPN RUNNING PER ORDERS. THE PT'S PICC LINE WAS NOTED TO NOT DRAW BACK FROM ALL PORTS AND THE RED PORT WAS NOT FLUSHING. CATHFLO WAS INSTILLED FOR 2HRS, ALL PORTS WILL NOW FLUSH BUT NONE WILL DRAW BACK. PT HAS BEEN REFUSING TURNS THIS SHIFT, STAFF WILL TURN HER TO THE LEFT SIDE AND SHE WILL TURN HERSELF BACK TO THE RIGHT OR REFUSE TURNS. PT'S FAMILY HAS BEEN AT THE BEDSIDE ALL SHIFT.
--- NOTE | 2025-05-10 19:35 | NUR ---
ASSUMPTION OF CARE ASSUMED CARE OF PT APPROX 1900. PT AWAKE AND ALERT, ABLE TO SQUEEZE HANDS AND NOD TO ANSWER QUESTIONS. LEVO AT 2 MCG, PRECEDEX AT 1 MCG, AND CPN AT 85 ML INFUSING VIA PICC IN RUE. PT ON BIPAP 05/09 55% FI02 AND BACKUP RATE OF 16, SATS 100% AND CURRENTLY TOLERATING, HAS PULLED AT MASK ONCE WHEN STAFF IS NOT AT BEDSIDE, STILL REDIRECTABLE. SINUS RHTYHM ON MONITOR WITH RATE OF 86, BP STABLE ON LEVO GTT WITH MAP >65 -SEE CCFS. FAMILY IN WAITING AREA AT THIS TIME. TEMP DIEZ IN PLACE AND DRAINING TO GRAVITY, CALL LIGHT WITHIN REACH.
[2025-05-11] VITALS (23 sets, daily range): BP systolic 76–129; BP diastolic 57–84
[2025-05-11 00:27] LABS: pH Blood Venous 7.52 (7.34-7.37)
[2025-05-11 03:38] LABS: pH Blood Venous 7.45 (7.34-7.37)
--- NOTE | 2025-05-11 03:56 | NUR ---
PATIENT UPDATE APPROX 2345 PT BEGAN TO EXHIBIT INCREASED WOB, USE OF ACCESSORY MUSCLES AND DIAPHORESIS. SATS WERE 98% ON BIPAP, BIPAP MASK WAS REMOVED, PT SUCTIONED WITH LITTLE CHANGE IN CONDITION. LUNG SOUNDS MORE COARSE T/O COMPARED TO START OF SHIFT AND RT WAS CALLED TO BEDSIDE TO ASSIST WITH SUCTIONING. UPON REMOVING BIPAP MASK PT HAD COPIOUS AMOUNTS OF SALIVA RUNNING FROM MOUTH. PT WAS LESS RESPONSIVE, NO LONGER SQUEEZING HAND TO ANSWER QUESTIONS, ONLY NODDING AND NOT HOLDING EYE CONTACT. CALL WAS PLACED TO PROVIDER, ORDERS PLACED FOR STAT VBG AND PROVIDER TO BEDSIDE TO ASSESS. PRECEDEX WAS PUT ON SB WITH LITTLE IMPROVEMENT IN MENTATION. ORDERS PLACED FOR FOLLOW UP VBG AT 0345 WHICH SHOWED SOME IMPROVEMENT. PT SATS CURRENTLY 100%, WOB IS MILDLY IMPROVED. CALL LIGHT WITHIN REACH.
[2025-05-11 04:02] LABS: BASOPHILS ABSOLUTE AUTO 0.09 K/mm3 (0.00-0.23); BASOPHILS PERCENT AUTO 0 % (0-2); EOSINOPHILS ABSOLUTE AUTO 0.05 K/mm3 (0.00-0.68); EOSINOPHILS PERCENT AUTO 0 % (0-6); Hematocrit 27.6 % (33.0-51.0); Hemoglobin 9.1 g/dL (11.5-16.0); IMMATURE GRAN ABSOLUTE AUTO 0.17 K/mm3 (0.00-0.10); IMMATURE GRAN PERCENT AUTO 1 % (0-1); LYMPHOCYTES ABSOLUTE AUTO 1.53 K/mm3 (0.84-5.20); LYMPHOCYTES PERCENT AUTO 7 % (21-46); MONOCYTES ABSOLUTE AUTO 0.79 K/mm3 (0.16-1.47); MONOCYTES PERCENT AUTO 4 % (4-13); Mean Corpuscular HGB Conc 33.0 g/dL (31.5-36.5); Mean Corpuscular Volume 85 fL (80-100); NEUTROPHILS ABSOLUTE AUTO 19.17 K/mm3 (1.96-9.15); NEUTROPHILS PERCENT AUTO 88 % (41-73); NRBC ABSOLUTE 0.00 K/mm3 (0.00-0.02); NRBC Auto 0.0 /100 WBC (0.0-0.2); Platelet Count 483 K/mm3 (150-400); RDW Coefficient Variation 16.2 % (11.7-14.2); RDW Standard Deviation 50.4 fL (35.1-46.3)
[2025-05-11 04:24] LABS: Alanine Aminotransfer (ALT/SGP 309.0 U/L (12-78); Albumin, Blood 1.6 g/dL (3.4-5.0); Albumin/Globulin Ratio 0.3 (0.8-1.8); Anion Gap 10.0 mmol/L (3-11); Aspartate Aminotrans (AST/SGOT 373.0 U/L (12-37); Bilirubin, Total 0.3 mg/dL (0.1-1.0); Blood Urea Nitrogen 38.0 mg/dL (8-24); CO2, Blood 22.0 mmol/L (21-32); Calcium, Blood 8.4 mg/dL (8.5-10.1); Chloride, Blood 108.0 mmol/L (98-108); Creatinine, Blood 0.52 mg/dL (0.40-1.00); Globulin, Blood 5.3 g/dL (2.2-4.0); Glucose, Blood 223.0 mg/dL (70-99); Magnesium, Blood 1.9 mg/dL (1.6-2.4); Phosphorus, Blood 4.2 mg/dL (2.5-4.9); Potassium, Blood 4.0 mmol/L (3.5-5.5); Sodium, Blood 136.0 mmol/L (136-145); Total Protein, Blood 6.9 g/dL (6.4-8.2)
[2025-05-11] MEDS ORDERED: FentaNYL Citrate 50 MCG/ML 2 ML Injection IV ONE (06:30)
[2025-05-11] MEDS ORDERED: Morphine Sulfate 4 MG/1 ML Injection ONE (06:36)
[2025-05-11] MEDS ORDERED: Morphine Sulfate 4 MG/1 ML Injection IV ONE (06:40)
[2025-05-11] MEDS ORDERED: LORazepam 2 MG/ML 1ML Injection IV PRN (08:20)
[2025-05-11] MEDS ORDERED: Morphine Sulfate 10 MG/ML 1MLSYR INH PRN (08:25)
[2025-05-11] MEDS ORDERED: Morphine Sulfate 10 MG/ML 1MLSYR IV PRN (08:25)
[2025-05-11] MEDS ORDERED: Morphine Sulfate 4 MG/1 ML Injection IV PRN (08:45)
--- NOTE | 2025-05-11 11:15 | NUR ---
Spiritual Care support Family has their own spiritual care support, but this rifle case repairer did provide a blessing for the family. With tears the family verbalized gratitude for the resource.
--- NOTE | 2025-05-11 12:48 | NUR ---
TRANSFER PT TRANSFER FROM ICU TO MEDICAL FLOOR VIA BED. REPORT GIVEN TO AYAAN JUDD. FAMILY @ BEDSIDE c PT. CARE CONTINUES c COMFORT MEASURES. 4L O2 VIA NC PER FAMILY REQUEST. PICC TO [facility] AT [place] LOCKED. IV MORPHINE FOR PAIN PER EMAR. DIEZ DRAINAGE YELLOW URINE TO GRAVITY. ALL PERSONAL BELONGINGS c PT.
[2025-05-11] MEDS ORDERED: Morphine Sulfate 20 MG/1ML 1 ML Oral Syringe SL PRN (15:05)
--- NOTE | 2025-05-11 16:47 | NUR ---
PT IS COMFORT CARE, PT FAMILY AT BEDSIDE, NO MEANINGFUL RESPONSE. PT TREATED WITH IV MORPHINE FOR PAIN AND COMFORT. DIEZ CATHETER DRAINING TO GRAVITY, PT REPOSITIONED Q2 HRS AND PRN AT FAMILY REQUEST. PT UNABLE TO OPEN MOUTH DUE TO PAST TRAUMA. ABLE TO SUCTION CHEEKS TOLORATED. MOIST HARSH COUGH.
--- NOTE | 2025-05-12 03:59 | NUR ---
SHIFT SUMMARY/COMFORT CARE NOTE: NO ACUTE EVENTS DURING THIS SHIFT. MEDICATED WITH 1MG OF IV ATIVAN AND 10MG SL ROXYCODONE FOR PAIN AND DISCOMFORT. RR>20/MIN. PT REMOVES NC. HUMIDIFIER ADDED TO THE O2 TUBING PER SISTER'S REQUEST. 2-3L VIA NC. SISTERS AND FAMILY BY THE BEDSIDE AT HS. SISTER SPENDING THE NIGHT BY THE BEDSIDE, ASSURING THAT THE PT'S NEEDS ARE MET, AND SISTER ADVOCATING FOR PT'S COMFORT. REPOSITIONED Q1-2HRS. DIEZ DRAINING TO GRAVITY. CONTINUING PT AND FAMILY EDUCATION R/T MEDICATIONS R/T END-OF-LIFE CARE. PT RESPONDS TO PAIN, EYES OPEN AND LOOKS STRAIGHT AHEAD WHEN SPOKEN TO. NOTED AGITATION AND DISCOMFORT, PAIN T/O THE NIGHT. MEDICATIONS EFFECTIVE/ COMFORT CARE. ORAL CARE WITH MOUTH MOISTURIZER. JAW IS TIGHT, ABLE TO SUCTION SLIGHTLY FROM THE INNER CHEECKS. PT REFUSING SUCTIONING MOST OF THE TIME. BED AT THE LOWEST POSITION, CALL LIGHT W/I REACH. FREQUENT, HOURLY CHECKS BY THE BEDSIDE, SISTER ALSO REQUESTING ASSISTANCE FREQUENTLY.
--- NOTE | 2025-05-12 08:14 | NUR ---
PT APPEARS TO BE RESTING COMFORTABLY, SISTER AT BEDSIDE. PT HAS CONTINUED TO PULL OFF HER OXYGEN TUBING, AND FAMILY IS OK WITH LEAVING IT OFF, THE FOCUS IS COMFORT.
[2025-05-12] MEDS ORDERED: Atropine Sulfate 1% Opth Soln 2ML BTL MM PRN (13:55)
--- NOTE | 2025-05-12 14:53 | NUR ---
Spiritual Support for Nursing staff pt. has passed. Provided nursing staff with home information to share with the family as the family had declined spiritual care.
--- NOTE | 2025-05-12 14:59 | NUR ---
PT AT 1445. FAMILY AT BEDSIDE, PALLIATIVE CARE RN AND DR. PENNINGTON NOTIFIED. FAMILY DECIDED ON [facility]
== END 2025-05-12 14:45 | DRG 377 ==
LOC: ER 03:52 → ICUE 07:22 → MEDS 05-11 12:57 → ENPENDDIS 05-12 14:45 → MEDS 05-12 14:45
PROVIDERS: Family Medicine; Internal Medicine; Internal Medicine Critical Care Medicine; Internal Medicine Gastroenterology; Student in an Organized Health Care Education/Training Program; ADMIT Family Medicine
PROC: 0BH17EZ Insertion of Endotracheal Airway into Trachea, Via Natural or Artificial Opening (ICD-10-PCS; 2025-04-29)
PROC: 0D9670Z Drainage of Stomach with Drainage Device, Via Natural or Artificial Opening (ICD-10-PCS; 2025-04-29)
PROC: 30233N1 Transfusion of Nonautologous Red Blood Cells into Peripheral Vein, Percutaneous Approach (ICD-10-PCS; 2025-04-29)
PROC: 0DJ08ZZ Inspection of Upper Intestinal Tract, Via Natural or Artificial Opening Endoscopic (ICD-10-PCS; 2025-04-29)
PROC: 3E033XZ Introduction of Vasopressor into Peripheral Vein, Percutaneous Approach (ICD-10-PCS; 2025-04-29)
PROC: 02HV33Z Insertion of Infusion Device into Superior Vena Cava, Percutaneous Approach (ICD-10-PCS; 2025-04-29)
PROC: 0T9B70Z Drainage of Bladder with Drainage Device, Via Natural or Artificial Opening (ICD-10-PCS; 2025-04-29)
PROC: 3E03329 Introduction of Other Anti-infective into Peripheral Vein, Percutaneous Approach (ICD-10-PCS; 2025-04-29)
PROC: 5A1955Z Respiratory Ventilation, Greater than 96 Consecutive Hours (ICD-10-PCS; principal; 2025-04-29 09:30)
PROC: 3E0336Z Introduction of Nutritional Substance into Peripheral Vein, Percutaneous Approach (ICD-10-PCS; 2025-05-01)
PROC: 0DJ08ZZ Inspection of Upper Intestinal Tract, Via Natural or Artificial Opening Endoscopic (ICD-10-PCS; 2025-05-02)
PROC: 0DB68ZX Excision of Stomach, Via Natural or Artificial Opening Endoscopic, Diagnostic (ICD-10-PCS; 2025-05-05)
PROC: 5A09357 Assistance with Respiratory Ventilation, Less than 24 Consecutive Hours, Continuous Positive Airway Pressure (ICD-10-PCS; 2025-05-09)
PROC: 3E03317 Introduction of Other Thrombolytic into Peripheral Vein, Percutaneous Approach (ICD-10-PCS; 2025-05-10)
DX: K25.4 Chronic or unspecified gastric ulcer with hemorrhage (principal); G93.41 Metabolic encephalopathy; J96.01 Acute respiratory failure with hypoxia; J18.9 Pneumonia, unspecified organism; E87.1 Hypo-osmolality and hyponatremia; N17.9 Acute kidney failure, unspecified; D62 Acute posthemorrhagic anemia; E87.4 Mixed disorder of acid-base balance; C78.02 Secondary malignant neoplasm of left lung; Z51.5 Encounter for palliative care; Z66 Do not resuscitate; Z78.1 Physical restraint status; C78.01 Secondary malignant neoplasm of right lung; C79.31 Secondary malignant neoplasm of brain; E87.0 Hyperosmolality and hypernatremia; R57.8 Other shock; C07 Malignant neoplasm of parotid gland; D63.1 Anemia in chronic kidney disease; E83.42 Hypomagnesemia; E83.51 Hypocalcemia; L89.152 Pressure ulcer of sacral region, stage 2; E11.51 Type 2 diabetes mellitus with diabetic peripheral angiopathy without gangrene; E78.5 Hyperlipidemia, unspecified; J44.89 Other specified chronic obstructive pulmonary disease; G25.81 Restless legs syndrome; M79.7 Fibromyalgia; G43.909 Migraine, unspecified, not intractable, without status migrainosus; I87.2 Venous insufficiency (chronic) (peripheral); G89.29 Other chronic pain; R54 Age-related physical debility; F41.9 Anxiety disorder, unspecified; E11.65 Type 2 diabetes mellitus with hyperglycemia; I10 Essential (primary) hypertension; F31.9 Bipolar disorder, unspecified; F17.210 Nicotine dependence, cigarettes, uncomplicated; M19.90 Unspecified osteoarthritis, unspecified site; E11.42 Type 2 diabetes mellitus with diabetic polyneuropathy; Z83.3 Family history of diabetes mellitus; Z82.49 Family history of ischemic heart disease and other diseases of the circulatory system; Z90.49 Acquired absence of other specified parts of digestive tract; Z90.710 Acquired absence of both cervix and uterus; Z98.891 History of uterine scar from previous surgery; Z86.718 Personal history of other venous thrombosis and embolism; Z86.711 Personal history of pulmonary embolism; Z89.421 Acquired absence of other right toe(s); Z95.5 Presence of coronary angioplasty implant and graft; Z95.1 Presence of aortocoronary bypass graft; Z79.01 Long term (current) use of anticoagulants; Z79.02 Long term (current) use of antithrombotics/antiplatelets; Z79.51 Long term (current) use of inhaled steroids; Z79.82 Long term (current) use of aspirin; Z79.84 Long term (current) use of oral hypoglycemic drugs; Z79.899 Other long term (current) drug therapy; Z88.0 Allergy status to penicillin; Z88.1 Allergy status to other antibiotic agents; Z88.8 Allergy status to other drugs, medicaments and biological substances; Z91.041 Radiographic dye allergy status
CPT/HCPCS: 0528U; 31500; 31720; 36415; 36430; 36569; 36593; 51702; 70487; 71045; 71275; 74174; 80048; 80053; 81001; 82272; 82330; 82803; 82947; 83605; 83690; 83735; 84100; 84478; 85014; 85018; 85025; 85610; 85730; 86850; 86900; 86901; 86920; 86922; 87040; 87070; 87086; 87106; 87205; 88305; 88342; 93005; 93010; 94002; 94003; 94640; 94644; 94660; 94664; 94760; 94762; 96361; 96365; 96366; 96368; 96375; 99285-25; A9270; C1751; J0169; J0330; J0744; J1200; J1430; J1790; J1815; J1956; J2060; J2250; J2270; J2354; J2371; J2470; J2704; J2765; J2919; J2997; J3010; J3411; J3475; J7030; J7040; J7050; J7060; J7120; J7168; P9016; Q9967